=== PATIENT | female | born 1945 | race Caucasian/White ===

== ENCOUNTER 2021-07-26 19:44 | Outpatient (REF) | payer OTHER, SELFPAY ==
[2021-07-26 21:12] LABS: Abs Immature Grans 0.02 10^3/uL (0.0-0.06); Absolute Basophil Count 0.03 10^3/uL (0.0-0.2); Absolute Eosinophil Count 0.07 10^3/uL (0.0-0.7); Absolute Lymphocyte Count 1.36 10^3/uL (1.2-3.4); Absolute Monocyte Count 0.49 10^3/uL (0.1-0.8); Absolute Neutrophil Count 4.16 10^3/uL (1.2-6.7); Basophils % 0.5; Eosinophils % 1.1; HGB 7.8 g/dL (11.2-15.7); Immature Grans % 0.3; Lymphocytes % 22.2; MCH 27.9 pg (27.0-33.0); MCV 92.9 fL (80-95); MPV 10.9 fL (8.0-11.0); Neutrophils % 67.9; Nucleated RBC 0 %; Platelet Count 254 10^3/uL (130-400); RDW 15.6 % (11.7-14.6); RDW-SD 52.7 fL; WBC 6.13 10^3/uL (4.4-10.8)
[2021-07-26 22:26] LABS: Anion Gap 2.8 mmol/L (3-11); BUN 15 mg/dL (7-18); CO2 30.2 mmol/L (21.0-32.0); CREATININE 1.5 mg/dL (0.55-1.02); Calcium 9.1 mg/dL (8.5-10.1); Chloride 109 mmol/L (98-107); Estimated GFR 33.85 (mL/min/1.73m2); Glucose 88 mg/dL (74-106); Potassium 3.7 mmol/L (3.5-5.1); Sodium 142 mmol/L (136-145)
== END 2021-07-26 19:45 | disposition home or self-care (01) ==
LOC: LBN 19:44
PROVIDERS: PCP Family Medicine; Visit Provider Family Medicine
DX: D62 Acute posthemorrhagic anemia (principal); N18.30 Chronic kidney disease, stage 3 unspecified; I10 Essential (primary) hypertension
CPT/HCPCS: 80048; 85025

== ENCOUNTER 2024-01-03 01:33 | Inpatient (IN) | payer OTHER, MEDICAID, SELFPAY ==
[2024-01-03] VITALS (21 sets, daily range): BP systolic 101–150; BP diastolic 60–85; PULSE 68–137; RESP 13–24; TEMP 36.1–36.6; O2SAT 83–99
--- NOTE | 2024-01-03 | DI.RAD_ITS ---
Exam(s) XR CHEST 1V IN DI DEPT EXAM: XR CHEST 1V IN DI DEPT CLINICAL HISTORY: chest pain. TECHNIQUE: 2D digital imaging was performed. COMPARISON: No exams were available for comparison FINDINGS: Single AP portable view. Heart size is upper normal. The mediastinum is not widened. Right hemidiaphragm is elevated and there is mild blunting of the right costophrenic angle. Also thi ckening of the minor fissure in the right lung. Opposite-left lung is clear. Degenerative changes a re noted in the shoulders and fracture deformity of the right humeral head-neck noted. IMPRESSION: Elevated right hemidiaphragm. Right pleural effusion. DATA REPOSITORY: RADIATION DOSE DELIVERED:
--- NOTE | 2024-01-03 | DI.RAD_ITS ---
Exam(s) XR ABDOMEN FLAT PLATE EXAM: XR ABDOMEN FLAT PLATE CLINICAL HISTORY: abdomen pain. TECHNIQUE: 2D digital imaging was performed. COMPARISON: No exams were available for comparison FINDINGS: Single AP supine view of the abdomen: The bowel gas pattern is nonspecific in the supine position. There is an overall grayness which may suggest the presence of ascites. No abnormal calcifications seen over the kidneys. Multiple phlebol iths are noted in both sides of the pelvis. Right hip prosthesis noted. Degenerative changes in the lower lumbar spine. IMPRESSION: Nonspecific bowel gas pattern in the supine position. Possible ascites. DATA REPOSITORY: RADIATION DOSE DELIVERED:
--- NOTE | 2024-01-03 01:30 | RT.EKG_ITS ---
APPROVED REPORT Exam: Resting ECG Reason for Exam: abd pain Patient Location: E HR:108 bpm ECG Measurements Heart Rate 108 AXIS TX 126 P 68 QRSd 68 QRS 11 QT 321 T 224 QTc 427 Conclusion Sinus tachycardia...rate> 99 Atrial premature complex...SV complex w/ short R-R interval Low voltage, extremity leads...all extremity leads <0.5mV Repol abnrm suggests ischemia, anterolateral...ST dep, T neg, I aVL V2-V6 I have reviewed and interpreted ECG and agree with software generated interpretation.
--- NOTE | 2024-01-03 01:45 | W.ED.GENAD ---
Discharge Plan Disposition Patient Disposition: Admit to [facility] Condition: Improving Discharge Details Chief Complaint: Abd Prob Clinical Impression: Urinary tract infection, Subendocardial ischemia, Abdominal pain, acute, right upper quadrant Primary Care Provider: Lazara Benz ED Provider: Jeremi De La Garza Home Meds and New Rx's Prescriptions: No Action celecoxib [Celebrex] 200 MG capsule 200 mg PO DAILY pravastatin 10 MG tablet 10 mg PO DAILY amitriptyline 10 MG tablet 20 mg PO HS omeprazole 20 MG capsule,delayed release(DR/EC) 20 mg PO DAILY fluticasone propionate [Flovent HFA] 12 GM HFA aerosol inhaler 220 mcg Inhalation BID hydrochlorothiazide 25 MG tablet 25 mg PO DAILY duloxetine [Cymbalta] 60 MG capsule,delayed release(DR/EC) 60 mg PO DAILY polyethylene glycol 3350 [Miralax] 17 GM powder in packet 255 gm PO for colonoscopy Qty: 1 0RF bisacodyl [Dulcolax (bisacodyl)] 5 MG tablet,delayed release (DR/EC) 5 mg PO ONCE Qty: 4 0RF Rx Instructions: Take as directed. atorvastatin 80 mg tablet 80 mg PO DAILY clopidogrel 75 mg tablet 75 mg PO DAILY Dulera 200-5 mcg/actuation HFA aerosol inhaler 2 puff inhalation BID escitalopram oxalate 20 mg tablet 20 mg PO DAILY ferrous sulfate 325 mg (65 mg iron) tablet 325 mg PO DAILY metoprolol succinate 25 mg tablet extended release 24 hr 25 mg PO DAILY pantoprazole 40 mg tablet,delayed release (DR/EC) 40 mg PO BID quetiapine [Seroquel] 25 mg tablet 25 mg PO QHS acetaminophen 325 mg tablet 325 mg PO Q4H PRN tetrahydrozoline [Eye Drops (tetrahydrozoline)] 0.05 % drops 1 drp ophthalmic (eye) BID ipratropium-albuterol 0.5 mg-3 mg(2.5 mg base)/3 mL solution for nebulization 3 ml inhalation QID PRN Discharge Data Discharge Physician: Jeremi De La Garza [facility] General Date/Time Provider Initiated Documentation: 01/03/24 01:36. HPI Narrative: The patient is a 78-year-old female, with a past medical history significant for constipation, depression, osteoarthritis, hypertension, gastroesophageal reflux disease, and hyperlipidemia, who presents to the emergency department this evening from the halfway facility across the street with complaints of abdominal discomfort. When EMS was initially called, the nursing facility staff reported that the patient was moaning and holding her abdomen and that they could not get any history from her. EMS reports that the patient initially complained about epigastric pain on their arrival and was mildly hypotensive. On arrival to the emergency room, the patient says that her pain is now in her right upper quadrant and is radiating to her right flank. The patient denies any nausea, vomiting, diarrhea, or constipation. The patient can provide relatively little history regarding the timeframe or progression of this disease process, but she does hold her abdomen on the right side and complained of pain in that location. Related Data Home Medications Medication Instructions Recorded Confirmed Celebrex 200 mg capsule (celecoxib) 200 mg PO DAILY 05/21/17 Cymbalta 60 mg capsule,delayed 60 mg PO DAILY 05/21/17 release (duloxetine) Flovent HFA 220 mcg/actuation 220 mcg inhalation BID 05/21/17 aerosol inhaler (fluticasone propionate) amitriptyline 10 mg tablet 20 mg PO HS 05/21/17 hydrochlorothiazide 25 mg tablet 25 mg PO DAILY 05/21/17 omeprazole 20 mg capsule,delayed 20 mg PO DAILY 05/21/17 release pravastatin 10 mg tablet 10 mg PO DAILY 05/21/17 bisacodyl 5 mg tablet,delayed 5 mg PO ONCE #4 tabs 08/06/17 release (Dulcolax (bisacodyl)) polyethylene glycol 3350 17 gram 255 gm PO for colonoscopy #1 g 08/06/17 01/03/24 oral powder packet (Miralax) acetaminophen 325 mg tablet 325 mg PO Q4H PRN 01/03/24 01/03/24 atorvastatin 80 mg tablet 80 mg PO DAILY 01/03/24 01/03/24 clopidogrel 75 mg tablet 75 mg PO DAILY 01/03/24 01/03/24 escitalopram oxalate 20 mg tablet 20 mg PO DAILY 01/03/24 01/03/24 ferrous sulfate 325 mg (65 mg 325 mg PO DAILY 01/03/24 01/03/24 iron) tablet ipratropium 0.5 mg-albuterol 3 mg 3 ml inhalation QID PRN 01/03/24 01/03/24 (2.5 mg base)/3 mL nebulization soln metoprolol succinate 25 mg 25 mg PO DAILY 01/03/24 01/03/24 tablet,extended release 24 hr mometasone-formoterol HFA 200 2 puff inhalation BID 01/03/24 01/03/24 mcg-5 mcg/actuation aerosol inhaler (Dulera) pantoprazole 40 mg tablet,delayed 40 mg PO BID 01/03/24 01/03/24 release quetiapine 25 mg tablet (Seroquel) 25 mg PO QHS 01/03/24 01/03/24 tetrahydrozoline 0.05 % eye drops 1 drp ophthalmic (eye) BID 01/03/24 01/03/24 (Eye Drops (tetrahydrozoline)) Previous Rx's Medication Instructions Recorded bisacodyl 5 mg tablet,delayed 5 mg PO ONCE #4 tabs 08/06/17 release (Dulcolax (bisacodyl)) polyethylene glycol 3350 17 gram 255 gm PO for colonoscopy #1 g 08/06/17 oral powder packet (Miralax) Allergies Allergy/AdvReac Type Severity Reaction Status Date / Time ROB Inhibitors Allergy Other (See Unverified 01/03/24 03:48 Comment) aspirin Allergy Other (See Unverified 01/03/24 03:48 Comment) atenolol Allergy Other (See Unverified 01/03/24 03:48 Comment) codeine Allergy Other (See Unverified 01/03/24 03:48 Comment) gabapentin Allergy Other (See Unverified 01/03/24 03:48 Comment) hydromorphone HCl Allergy Other (See Unverified 01/03/24 03:48 [From Dilaudid] Comment) lisinopril Allergy Other (See Unverified 01/03/24 03:48 Comment) lorazepam [From Ativan] Allergy Other (See Unverified 01/03/24 03:48 Comment) naproxen [From Naprosyn] Allergy Other (See Unverified 01/03/24 03:48 Comment) penicillin V Allergy Other (See Unverified 01/03/24 03:48 Comment) trazodone Allergy Other (See Unverified 01/03/24 03:48 Comment) General Stated Complaint: Abd Prob UMER: 3 Exam Narrative Exam Narrative: The patient is alert and interactive with staff. She can follow directions and provide some limited information. She tells me that she has ongoing right upper quadrant abdominal pain and right flank pain. HENMT Other: The patient has poor dentition with a pronounced underbite and some dental decay. Resp Other: The patient has no increased work of breathing and has normal auscultations of her lungs bilaterally with good air exchange and no transmitted abnormal lung sounds Cardio Other: The auscultated heart sounds are regular rate and rhythm without any murmurs rubs or gallops. GI Other: The abdomen is soft to palpation with normal bowel sounds. The patient reports pain to palpation of the right upper quadrant and right flank. Skin Other: The patient is pink warm and dry with a normal skin temperature. There is seborrheic keratosis on the face and the visualized portions of the upper anterior trunk Neuro Other: The patient is alert and oriented to person. The patient has no observed or reported focal motor or sensory neurodeficits. The visualized portions of the cranial nerves are grossly intact. Extrem Other: There is 1-2+ nonpitting edema in the bilateral lower extremities Psych Other: The patient appears anxious and mildly agitated with some intermittent moaning. Course Vital Signs Vital signs: Vital Signs Temperature 36.6 C 01/03/24 01:33 Pulse 68 01/03/24 01:33 Respiratory Rate 17 01/03/24 01:33 Blood Pressure 101/61 01/03/24 01:33 Pulse Oximetry 96 01/03/24 01:33 Temperature 36.6 C 01/03/24 01:33 Pulse 68 01/03/24 01:33 Respiratory Rate 17 01/03/24 01:33 Respiratory Effort Normal 01/03/24 01:39 Blood Pressure 101/61 01/03/24 01:33 Pulse Oximetry 96 01/03/24 01:33 Pain Level 6 01/03/24 01:33 Procedures EJ/Peripheral Line Arm R: Time Out Performed: No Skin Cleansed in Sterile Fashion: Yes Size (gauge): 20 IV Secured and Dressing Applied: Yes Patient Tolerated Procedure: well Additional Comments: Place under US visualization. 2 attempts made in left AC prior to right brachial view placement. Medical Decision Making The patient was seen and examined. She has no real GI symptoms such as nausea, vomiting, diarrhea, or constipation that are known. The abdominal discomfort would seem to be a relatively acute phenomenon that began at some point in time this evening, but the nursing facility staff were unable to provide very accurate information regarding timing. And the patient can provide really no meaningful timing of the disease onset or progression. The differential would include biliary tract disease, pancreatitis, gastritis, pyelonephritis, occult renal calculus, atypical presentation for myocardial ischemia, hepatic flexure diverticulitis or colitis, functional abdominal pain related to constipation, or other forms of bowel pathology. The patient will have a generalized laboratory workup to evaluate her for these processes. The EKG appears to be a sinus tachycardia with a mild sinus dysrhythmia. There are abnormal repolarization findings throughout the precordial leads with some ST depression from V2 through V4 and downgoing T waves in V5 V6. There are isoelectric repolarization findings in the limb leads, generally. This EKG could be claim service representative of anterior lateral ischemia in the right context, but it does not represent a STEMI and in the absence of an elevated troponin is unlikely to represent an NSTEMI. The patient will receive some IV acetaminophen and IV fluid here in the emergency room to see if this helps improve her symptoms. Disposition depends on discovery of pathology and response to treatment here in the emergency room. The patient was found to have some elevation of alkaline phosphatase, cell forms that would be concerning for potential urinary tract infection in her urine, and a mildly elevated troponin in the setting of some ST changes in the precordial leads with ST depression. The patient was pain-free on recheck after being given IV acetaminophen and 1 L fluid bolus. I discussed the case with the patient's daughter, Dominique Quiroz, who tells me that they are not interested in any aggressive cardiac or surgical interventions. I explained that her mother would be admitted to the hospital for serial myocardial enzymes and some additional treatment. I discussed the case with Dr. Kaur from the hospitalist service who agreed to accept the patient in admission. Quality:SDOH Health Related Social Needs: No Data to Display PFSH All Active Problems (Updated 01/03/24 @ 05:37 by Jeremi De La Garza MD) Abdominal pain, acute, right upper quadrant (Acute) Subendocardial ischemia (Acute) Urinary tract infection (Acute) Medical History (Updated 01/03/24 @ 05:37 by Jeremi De La Garza MD) Peptic ulcer disease Hypertension Chronic renal insufficiency Reactive airway disease Diabetes mellitus Hx of hepatitis Hx MRSA infection Surgical History (Updated 05/21/17 @ 09:35 by Tootie Goss MD) Knee Replacement Hip Surgery EGD - [facility] Colonoscopy - [facility] Family History Mother Diabetes Small bowel infarction Father Lung cancer Thyroid disease Sister Myocardial infarction Brother Myocardial infarction Social History Smoking risk assessment performed?: No Housing: long-term Do you feel safe at home: Yes
[2024-01-03 02:09] LABS: Bilirubin Large (Negative); Blood Trace-intact (Negative); Clarity Sl Cloudy (Clear); Glucose Negative (Negative); Ketones 15 mg/dL (Negative); Leukocyte Esterase Small (Negative); Nitrite Negative (Negative); Specific Gravity >= 1.030 (1.005-1.025)
[2024-01-03 02:15] LABS: Bacteria Few HPF (Negative); Casts Negative LPF (Negative); Crystals Negative HPF (Negative); Epithelial Cells Moderate HPF (Negative); Mucus Negative (Negative)
[2024-01-03 02:16] LABS: C & S Indicated? No/Sq. Contamination
[2024-01-03] MEDS: ACETAMINOPHEN 1,000 MG/100 ML BTL 400 MG IVPB (02:16)
[2024-01-03] MEDS: Normal Saline 1,000 ML 1000 ML IV (02:16)
[2024-01-03 03:51] LABS: Abs Immature Grans 0.06 10^3/uL (0.0-0.06); Absolute Lymphocyte Count 0.83 10^3/uL (1.2-3.4); Absolute Monocyte Count 0.27 10^3/uL (0.1-0.8); Absolute Neutrophil Count 6.67 10^3/uL (1.2-6.7); HCT 28.1 % (36.0-46.0); Immature Grans % 0.8; Lymphocytes % 10.6; MCH 28.8 pg (27.0-33.0); MCV 90 fL (80-95); MPV 9.7 fL (8.0-11.0); Monocytes % 3.4; Neutrophils % 85.2; Platelet Count 145 10^3/uL (130-400); RBC 3.13 10^6/uL (3.93-5.22); RDW 15.8 % (11.7-14.6); RDW-SD 52.5 fL; WBC 7.83 10^3/uL (4.4-10.8)
[2024-01-03 04:05] LABS: ALT 17 U/L (14-59); AST 49 U/L (15-37); Albumin 2.1 g/dL (3.4-5.0); Alkaline Phosphatase 156 U/L (46-116); Anion Gap 13.2 mmol/L (3-11); BUN 42 mg/dL (7-18); Bilirubin, Total 1.2 mg/dL (0.2-1.0); CO2 23.8 mmol/L (21.0-32.0); CREATININE 1.7 mg/dL (0.55-1.02); Calcium 8.7 mg/dL (8.5-10.1); Chloride 109 mmol/L (98-107); Glucose 105 mg/dL (74-106); Lipase 23 U/L (16-77); Potassium 3.2 mmol/L (3.5-5.1); Sodium 146 mmol/L (136-145); Total Protein 6.2 g/dL (6.4-8.2)
[2024-01-03 04:09] LABS: Troponin I 136 ng/L (< or =60)
--- NOTE | 2024-01-03 05:29 | DI.US_ITS ---
Exam(s) US ABDOMEN LIMITED EXAM: US ABDOMEN LIMITED CLINICAL HISTORY: RUQ pain, eval gallbladder TECHNIQUE: Ultrasound abdomen performed using standard protocol. COMPARISON: No exams were available for comparison FINDINGS: Exam is limited by bowel gas and patient condition. LIVER: Increased echogenicity consistent with moderate hepatic steatosis. No focal liver lesions are seen. GALLBLADDER: Sludge. No stones identified. No evidence of wall thickening. No pericholecystic fluid identified. SOLORIO'S SIGN: Negative. BILIARY SYSTEM: No intrahepatic or extrahepatic biliary ductal dilation. Right kidney: No evidence of renal calculi. No evidence of hydronephrosis. No renal mass or cyst iden tified. PANCREAS: Normal where visualized. ASCITES: None seen. IMPRESSION: Moderate hepatic steatosis. Gallbladder sludge. DATA REPOSITORY:
--- NOTE | 2024-01-03 05:30 | RT.EKG_ITS ---
APPROVED REPORT Exam: Resting ECG Reason for Exam: Patient Location: E HR:119 bpm ECG Measurements Heart Rate 119 AXIS IN [id number] P [id number] QRSd 67 QRS 21 QT 353 T 252 QTc 497 Conclusion Atrial fibrillation...? atrial activity Low voltage, extremity leads...all extremity leads <0.5mV Nonspecific repol abnormality, diffuse leads...ST dep, T flat/neg, ant/lat/inf
[2024-01-03] MEDS: cefTRIAXone 1 GM/50 ML BAG (05:33)
--- NOTE | 2024-01-03 06:11 | HPE_ITS ---
Date of service: 01/03/24 Time of Service: 06:11 Assessment and Plan Assessment and plan (1) Abdominal pain, acute, right upper quadrant: Start date: 01/03/24 Status: Acute Assessment and plan: This is a 78-year-old lady with acute onset of right upper quadrant discomfort and abnormal liver function test suggesting possible cholelithiasis with common duct obstruction or gallbladder colic. She also had slightly elevated troponins which appear to be secondary rather than primary issue with tachycardia and slight dehydration and what appears to be paroxysmal atrial fibrillation. She has no diagnosis of atrial fibrillation and is on a medical regimen which may indicate this is been a problem and. She is not on anticoagulation with Plavix to be held and only heparin subcu for DVT prophylaxis pending surgical consultation after ultrasound abdomen. Patient also having lung findings over the right lower lung field which may be sympathetic with her acute abdominal process but chest x-ray will be done to rule out pneumonia. Patient is on Rocephin for possible UTI which should cover pneumonia and GI infectious pathology with urine culture pending and blood culture pending. This can be expanded if needed. She does not have an elevated WBC. Procalcitonin can be checked. She is a DNR/DNI and if surgical intervention is needed her daughter will be consulted. The medication to treat a non-STEMI at this time. (2) Elevated troponin level not due myocardial infarction: Start date: 01/03/24 Status: Acute Assessment and plan: Mildly elevated troponin as stated most likely secondary to acute process. Trend troponins and continue cardiac monitoring with patient appears to have paroxysmal atrial fibrillation. Advance beta-hemal and continue high-dose atorvastatin. She was on Plavix but this to be held with possible pending surgical intervention. Long-term anticoagulation for paroxysmal atrial fibrillation can be addressed but risk may outweigh benefit. (3) Urinary tract infection: Start date: 01/03/24 Status: Acute Assessment and plan: Possible UTI with patient to have Rocephin 1 g IV and follow-up urine culture adjusting antibiotic therapy accordingly. Qualifiers: Hematuria presence: with hematuria Urinary tract infection type: acute cystitis Qualified Code(s): N30.01 - Acute cystitis with hematuria (4) Hypokalemia: Start date: 01/03/24 Status: Acute Assessment and plan: Repletion and follow-up. This may be nutritional. Patient is not on diuretics. Check magnesium and replete if needed. (5) Dehydration: Start date: 01/03/24 Status: Acute Assessment and plan: Gentle IV hydration with echocardiogram to assess cardiac output. Monitor for fluid overload. Follow-up labs. (6) PAF (paroxysmal atrial fibrillation): Status: Acute Assessment and plan: This problem is not on the patient's problem list but may have been a problem in the past. This will be investigated with her PCP. Continue to monitor heart rate and advance beta-hemal as tolerated. Long-term patient daughter needs to be engaged in discussion of of anticoagulation to avoid stroke though risk may be higher than benefit. (7) Chronic renal insufficiency: Assessment and plan: Slightly exacerbated with dehydration. Trend labs. Qualifiers: Chronic kidney disease stage: stage 3 (moderate) Chronic kidney disease stage 3 subtype: stage 3b (GFR 30-44) Qualified Code(s): N18.32 - Chronic kidney disease, stage 3b (8) Reactive airway disease: Assessment and plan: On chronic inhalers which will be continued. Chest x-ray because of right lower lung findings and if pneumonia consider expanding antibiotic therapy. Qualifiers: Asthma complication type: uncomplicated Asthma persistence: persistent Asthma severity: moderate Qualified Code(s): J45.40 - Moderate persistent asthma, uncomplicated (9) Diabetes mellitus: Assessment and plan: Historically has diabetes mellitus but not on medical therapy. Trend comorbidities before meals and at bedtime when on diet and every 6 hours with NPO. Since his insulin sliding scale coverage while hospitalized. Qualifiers: Chronic kidney disease stage: stage 3 (moderate) Chronic kidney disease stage 3 subtype: stage 3b (GFR 30-44) Diabetes mellitus complication detail: w ith chronic kidney disease Diabetes mellitus complication status: with kidney complications Diabetes mellitus meterman insulin use: without shelter use D iabetes mellitus type: type 2 Qualified Code(s): E11.22 - Type 2 diabetes mellitus with diabetic chronic kidney disease; N18.32 - Chronic kidney disease, stage 3b (10) Hypertension: Assessment and plan: Advance beta-blockade which will help tachycardia with atrial fibrillation and blood pressure control as well as treat for slightly elevated troponin. Expanded medical therapy if needed. Echocardiogram will be performed. Qualifiers: Hypertension type: primary hypertension Qualified Code(s): I10 - Essential (primary) hypertension History of Present Illness History of Present Illness Chief Complaint: Right upper quadrant abdominal pain and generalized weakness Narrative: This is a 78-year-old female patient who recently was admitted to a local skilled nursing presented to ED with acute onset of right upper quadrant abdominal pain radiating to her flank. This resolved with IV fluid hydration and analgesics. Her lab did reveal a slight elevation of her troponin and EKG did reveal some nonspecific ST changes which may be chronic with no comparisons. Rhythm also appears to be intermittently atrial fibrillation the patient not on anticoagulation but on beta-hemal and Plavix along with atorvastatin. She cannot offer more specific history and there are few records of her past treatments. She did have elevation of her liver enzymes and her onset of pain could be consistent with gallbladder disease. She has had no cholecystectomy. She has no other abdominal complaints but as stated is a poor historian. She does have a slightly elevated creatinine which may be chronic and hypokalemia with repletion of potassium and ongoing. She has not complained of chest pain or abdominal pain at the time of my exam. She does complain of being generally weak and may not be having adequate intake recently. She denies anorexia. Because of patient's sudden onset of symptoms and elevated troponin she will be admitted to trend troponins and do further evaluation of her gallbladder and elevated liver functions as well as hydration with IV fluids consider echocardiogram with none on record and having elevated troponins. Will look for focal wall motion abnormalities in the left ventricle. She will be on telemetry and for now only will be given heparin DVT prophylaxis and thromboembolic prophylaxis with probable paroxysmal atrial fibrillation with slightly elevated heart rate at the time of admission. She is on a beta-hemal but this could be increasing her blood pressure tolerates. The daughter is amenable to treating reversible problems but being not aggressive with transfer or surgical interventions. She will be kept in the loop with decision making with further investigations. Patient is a DNR/DNI. Review of Systems Narrative: 13 point review of systems otherwise unrevealing or stable/unobtainable. [facility] All Active Problems (Updated 01/03/24 @ 07:42 by Reji Kaur) PAF (paroxysmal atrial fibrillation) (Acute) Dehydration (Acute) Hypokalemia (Acute) Elevated troponin level not due myocardial infarction (Acute) Abdominal pain, acute, right upper quadrant (Acute) Subendocardial ischemia (Acute) Urinary tract infection (Acute) Medical History Peptic ulcer disease Hypertension Chronic renal insufficiency Reactive airway disease Diabetes mellitus Hx of hepatitis Hx MRSA infection Surgical History Knee Replacement Hip Surgery EGD - MAC Colonoscopy - MAC Family History Mother Diabetes Small bowel infarction Father Lung cancer Thyroid disease Sister Myocardial infarction Brother Myocardial infarction Social History Smoking risk assessment performed?: No Housing: skilled nursing Do you feel safe at home: Yes Meds Allergies and Home Medications Allergies Allergy/AdvReac Type Severity Reaction Status Date / Time ROB Inhibitors Allergy Other (See Unverified 01/03/24 03:48 Comment) aspirin Allergy Other (See Unverified 01/03/24 03:48 Comment) atenolol Allergy Other (See Unverified 01/03/24 03:48 Comment) codeine Allergy Other (See Unverified 01/03/24 03:48 Comment) gabapentin Allergy Other (See Unverified 01/03/24 03:48 Comment) hydromorphone HCl Allergy Other (See Unverified 01/03/24 03:48 [From Dilaudid] Comment) lisinopril Allergy Other (See Unverified 01/03/24 03:48 Comment) lorazepam [From Ativan] Allergy Other (See Unverified 01/03/24 03:48 Comment) naproxen [From Naprosyn] Allergy Other (See Unverified 01/03/24 03:48 Comment) penicillin V Allergy Other (See Unverified 01/03/24 03:48 Comment) trazodone Allergy Other (See Unverified 01/03/24 03:48 Comment) Home Medications Medication Instructions Recorded Confirmed Type Cymbalta 60 mg capsule,delayed 60 mg PO DAILY 05/21/17 History release (duloxetine) Flovent HFA 220 mcg/actuation 220 mcg inhalation BID 05/21/17 History aerosol inhaler (fluticasone propionate) amitriptyline 10 mg tablet 20 mg PO HS 05/21/17 History hydrochlorothiazide 25 mg tablet 25 mg PO DAILY 05/21/17 History polyethylene glycol 3350 17 gram 255 gm PO for colonoscopy #1 g 08/06/17 01/03/24 Rx oral powder packet (Miralax) acetaminophen 325 mg tablet 325 mg PO Q4H PRN 01/03/24 01/03/24 History atorvastatin 80 mg tablet 80 mg PO DAILY 01/03/24 01/03/24 History clopidogrel 75 mg tablet 75 mg PO DAILY 01/03/24 01/03/24 History escitalopram oxalate 20 mg tablet 20 mg PO DAILY 01/03/24 01/03/24 History ferrous sulfate 325 mg (65 mg 325 mg PO DAILY 01/03/24 01/03/24 History iron) tablet ipratropium 0.5 mg-albuterol 3 mg 3 ml inhalation QID PRN 01/03/24 01/03/24 History (2.5 mg base)/3 mL nebulization soln metoprolol succinate 25 mg 25 mg PO DAILY 01/03/24 01/03/24 History tablet,extended release 24 hr mometasone-formoterol HFA 200 2 puff inhalation BID 01/03/24 01/03/24 History mcg-5 mcg/actuation aerosol inhaler (Dulera) pantoprazole 40 mg tablet,delayed 40 mg PO BID 01/03/24 01/03/24 History release quetiapine 25 mg tablet (Seroquel) 25 mg PO QHS 01/03/24 01/03/24 History tetrahydrozoline 0.05 % eye drops 1 drp ophthalmic (eye) BID 01/03/24 01/03/24 History (Eye Drops (tetrahydrozoline)) Exam Narrative Exam Narrative: General: Patient appears appropriate for age, appears chronically ill and is very soft-spoken with wandering conversation. She appears to have a very dry mouth and an underbite missing her upper teeth. Speech is slightly garbled. She is alert and oriented at least to person and place. She is in no acute distress. She is slightly lethargic. HEENT: Normocephalic, coarsened facial features, eyes with pupils equal and reactive to light symmetrically, extraocular movement tachycardia sclera anicteric. Oropharynx with dry mucosa and missing upper teeth with discolored and crooked lower teeth with missing molars. Neck: Supple without JVD. Lungs: Inspiratory coarse crackles right base partially cleared with deep inspiration with clear lung garcia otherwise. No rhonchi. No expiratory wheeze. Fair aeration diffusely. No increased expiratory phase. Back: Stooped posture without CVA tenderness. Large hair tuft over lumbar region which is dense and dark. There is small spina bifida defect centrally. Breast: Exam deferred. Heart: Irregular irregular rhythm with tachycardic rate and distant heart sounds. No murmur or gallop appreciated. Abdomen: Scaphoid contour, soft to palpation with slight guarding in the right upper quadrant and epigastric region but no rebound. No palpable hepatosplenomegaly. Negative Cao sign. Bowel sounds positive all quadrants. Genitalia/rectal: Exam deferred. Patient is wearing adult diaper. Skin: Warm, normal color and dry. Extremities: Without clubbing, cyanosis or grossly pitting edema with nonpitting edema lower extremities. Good cap refill. Joints have decreased range of motion with osteoarthritic changes. Neuro: Cranial nerves II through XII gross intact, no focalizing motor deficits. No tremor. Psych: Flattened affect with normal mood. Slightly lethargic but not delusional. No abnormal thought processes. Remote memory grossly intact with recent memory less intact. Results Labs 01/03/24 03:40 01/03/24 03:40 Labs: Laboratory Results - last 24 hr 01/03/24 01/03/24 02:04 03:40 WBC 7.83 RBC 3.13 L Hgb 9.0 L Hct 28.1 L MCV 90 MCH 28.8 MCHC 32.0 RDW 15.8 H Plt Count 145 MPV 9.7 Immature Gran % 0.8 Neutrophils % 85.2 Lymphocytes % 10.6 Monocytes % 3.4 Eosinophils % 0.0 Basophils % 0.0 Nucleated RBC % 0.0 Absolute Neutrophils 6.67 Absolute Lymphocytes 0.83 L Absolute Monocytes 0.27 Absolute Eosinophils 0.00 Absolute Basophils 0.00 Sodium 146 H Potassium 3.2 L Chloride 109 H Carbon Dioxide 23.8 Anion Gap 13.2 H BUN 42 H Creatinine 1.7 H Est GFR (CKD-EPI 2020) 30.50 Glucose 105 Calcium 8.7 Total Bilirubin 1.2 H AST 49 H ALT 17 Alkaline Phosphatase 156 H Troponin I 136 H* Total Protein 6.2 L Albumin 2.1 L Lipase 23 Urine Color Yellow Urine Clarity Sl Cloudy Urine pH 6.0 Ur Specific Sparks >= 1.030 H Urine Protein 100 H Urine Ketones 15 H Urine Blood Trace-intact H Urine Nitrite Negative Urine Bilirubin Large H Urine Urobilinogen 1.0 H Ur Leukocyte Esterase Small H Urine RBC 5-10 H Urine WBC 10-20 H Ur Epithelial Cells Moderate Urine Crystals Negative Urine Bacteria Few Urine Casts Negative Urine Mucus Negative Ur Culture Indicated? No/Sq. Contamination Urine Glucose Negative Last Vital Signs Temp 36.6 C 01/03/24 01:33 Pulse 114 H 01/03/24 04:50 Resp 16 01/03/24 04:50 BP 136/83 01/03/24 04:50 Pulse Ox 98 01/03/24 04:50 Time Spent Time spent with Patient: >75 minutes Time was spent: preparing to see the patient(eg.review tests), obtaining and/or reviewing separately otained hiistory, ordering medications,tests, procedures, referring, communicating with other health career technology teacher, indepentently interpreting results and care coordination
[2024-01-03 06:36] LABS: Source Nasal/Nares
[2024-01-03 07:08] LABS: COVID-19 PCR Negative (Negative)
[2024-01-03 07:30] LABS: MRSA PCR Negative (Negative)
[2024-01-03 07:57] LABS: INR 1.3 (0.9-1.1); Prothrombin Time 12.5 sec (9.1-11.1)
[2024-01-03 08:09] LABS: TSH (W/Ref FT4) 0.66 uIU/mL (0.36-3.74)
[2024-01-03 08:15] LABS: Troponin I 152 ng/L (< or =60)
--- NOTE | 2024-01-03 09:45 | RT.EKG_ITS ---
APPROVED REPORT Exam: Resting ECG Reason for Exam: afib vs sinus arrhythmia vs MAT Patient Location: I HR:93 bpm ECG Measurements Heart Rate 93 AXIS IA 127 P 76 QRSd 81 QRS 33 QT 372 T 245 QTc 463 Conclusion Sinus rhythm...normal P axis, V-rate 50- 99 Low voltage, extremity leads...all extremity leads <0.5mV Abnormal R-wave progression, early transition...QRS area>[address]-T abnormalities
[2024-01-03] MEDS: Heparin 5,000 UNITS/ML VIAL 5000 UNITS SC ×2 (10:11→18:21)
--- NOTE | 2024-01-03 10:15 | DI.US_ITS ---
APPROVED REPORT EXAM: Comprehensive 2D, Doppler, and color-flow Echocardiogram Patient Location: In-Patient Room/Bed: 209 Bursar: Afia Medrano RDCS (AE) Indications: Elevated troponin, evaluate for RWMA Other Information Study Quality: Fair. Technically limited study due to body habitus, inability to position patient, un cooperative patient exam done supine bedside.. Conclusion Technically limited study Left ventricle appears normal in size, wall thickness and systolic function. EF 55-60%. No wall mot ion abnormalites identified Right ventricle and right atrium appear normal in size Normal left atrial size There are no structural or hemodynamically significant valvular abnormalities seen on this study Wall motion Left Ventricle Low parasternal window limited imaging. The overall left ventricular systolic function appears normal . Arrhythmia throughout exam. Technically limited subcostal imaging. Right Ventricle Right ventricle is grossly normal in size. Right ventricular systolic function is grossly normal. Atria Left atrium is not well visualized. Right atrium is not well visualized. Technically limited subcosta l imaging. Aortic Valve The aortic valve is normal in structure. There is no aortic valvular stenosis. No aortic regurgitatio n is present. Mitral Valve The mitral valve is normal in structure. No evidence of mitral valve stenosis. Trace mitral regurgita tion. Tricuspid Valve The tricuspid valve is normal in structure. There is no tricuspid valve stenosis. Mild tricuspid regu rgitation. Pulmonic Valve Pulmonic valve is not well visualized. There is no pulmonic valvular stenosis. There is no pulmonic v alvular regurgitation. Great Vessels The aortic root is normal in size. Ascending aorta is not well visualized. Aortic arch is not well vi sualized. The IVC was not visualized. Technically limited subcostal imaging. Pericardium Technically limited subcostal imaging. 2D Dimensions Ao Root d 3.20 cm F: 2.7 - 3.3 LA Volume LA Length A4C 4.1 cm LA Length A2C 5.0 cm LA Area A4C s 10.65 cm2 LA Area A2C s 14.73 cm2 LA Vol A4C A-L 23.61 mL LA Vol A2C A-L 36.77 mL LA Vol Biplane A-L 32.6 mL LA Vol/BSA A4C A-L LA Vol/BSA A2C A-L LA Vol/BSA BP A-L 19.5 mL/m2 LA Vol A4C MOD 22.3 mL LA Vol A2C MOD 34.5 mL LA Vol BP MOD 30.6 mL LV Diastology MV E' medial 0.043 (>0.07 m/s) MV E Vmax 0.57 (0.4-1.3 m/s) MV E/E' MED 13.18 (<14) MV A Vmax 0.80 (0.4-1.3 m/s) MV E' lateral 0.056 (>0.1 m/s) E/A Ratio 0.7 MV E/E' LAT 10.22 (<14) MV E' Average 0.049 m/s MV E/E'(average) 11.51 Aortic Valve AoV Vmax 1.00 m/s LVOT Vmax 0.98 m/s AoV Peak Grad 4.0 mmHg LVOT Peak Grad 3.9 mmHg AoV Area (Vmax) 2.98 cm2 LVOT VTI 0.171 m AoV VTI 0.179 m LVOT Mean Grad 1.6 mmHg AoV Mean Vijay. 0.72 m/s LVOT SV 51.78 mL AoV Mean Grad 2.3 mmHg LVOT Diam s 1.95 cm AoV Area (VTI) 2.90 cm2 Velocity Ratio 0.98 Mitral Valve MV DT 180 (160-240 msec) MV Vmax TIPS 0.79 m/s MV Mean Grad 1.3 (<2mmHg) MV VTI 0.173 m Pulmonary Valve PV Vmax 0.79 (0.5-1.5 m/s) RVOT Vmax 0.68 m/s PV Peak Grad 2.5 mmHg RVOT Peak Gr. 1.8 mmHg PV Mean Vijay 0.59 m/s RVOT VTI 0.107 m PV Mean Grad 1.5 mmHg RVOT Mean Gr. 1.1 mmHg Tricuspid Valve TV S' 0.13 m/s TR Vmax 2.74 m/s TR Peak Grad 29.9 mmHg
--- NOTE | 2024-01-03 10:21 | INITIAL_ITS ---
Date of service: 01/03/24 Time of Service: 10:21 Care Management Initial Assmt Initial Assessment REASON FOR HOSPITALIZATION:: abdominal pain, uti PREVIOUS FUNCTIONAL STATUS/SOCIAL/FAMILY SUPPORTS:: Blanka has been residing at [facility] for about 6 weeks. Prior to that she was at [facility]. Blanka has 4 children, 2 sons and 2 daughters. The daughters were present when CM met with Blanka and helped to provide some in formation. Blanka has dementia so is not a reliable historian. 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 Blanka requires assistance with ADLs and is only able to ambulate short distances with a walker. CURRENT FUNCTIONAL STATUS:: Blanka was lying in bed visiting with her daughters when CM met with her. She was mumbling but did not enter into conversation. Anthony bazan's IV potassium infiltrated and it was necessary for her nurse to administer hyaluronidase which Blanka found very painful. Dr. Loving did a surgical consult with Blanka and discussed the possibility of doing a cholecystectomy with her daughters. She was informed that Blanka is unable to have surgery with anesthesia due to a large clot in her brain. As there are no medical records available for Blanka, this could not be confirmed. ADVANCE DIRECTIVES:: none Has patient been provided with info about the portal/API?: Yes Did the patient sign up for the portal?: No CODE STATUS:: DNR/DNI INSURANCE COVERAGE / FINANCIAL ISSUES:: [employer] [place] Medicaid CURRENT HOME/COMMUNITY SERVICES/EQUIPMENT:: lives in a SNF PRIMARY CARE PHYSICIAN:: Lazara Benz POTENTIAL DISCHARGE NEEDS:: follow up with facility providers ands plan of care PATIENT/FAMILY EDUCATION NEEDS:: Review of discharge instructions, expectations, limitations, follow up plan TRANSPORTATION:: via facility w/c van PLAN:: Anticipate that Blanka will return to [facility] when medically cleared. She will follow up with the facility providers and plan of care and transport via facility van. CM will follow and assess for discharge needs. [facility] All Active Problems (Updated 01/03/24 @ 07:42 by Reji Kaur) PAF (paroxysmal atrial fibrillation) (Acute) Dehydration (Acute) Hypokalemia (Acute) Elevated troponin level not due myocardial infarction (Acute) Abdominal pain, acute, right upper quadrant (Acute) Subendocardial ischemia (Acute) Urinary tract infection (Acute) Medical History Peptic ulcer disease Hypertension Chronic renal insufficiency Reactive airway disease Diabetes mellitus Hx of hepatitis Hx MRSA infection Surgical History Knee Replacement Hip Surgery EGD - MAC Colonoscopy - MAC Family History Mother Diabetes Small bowel infarction Father Lung cancer Thyroid disease Sister Myocardial infarction Brother Myocardial infarction Social History Smoking risk assessment performed?: No Housing: retirement Do you feel safe at home: Yes SDOH(Care Management) Screening Will the Patient Participate in the Screening?: Yes Do you worry about having a steady place to live?: yes In the past 12 months, have you had to go without electric, gas, oil or water in your home?: choose not to answer Have you or anyone in your house had to go without enough food to eat?: choose not to answer Has lack of transportation kept you from medical appointments or from doing things needed for daily living?: choose not to answer Has anyone in your support network made you feel unsafe for any reason?: choose not to answer Health Related Social Needs Health related social needs: housing instability, housed, with risk of homelessness(Z59.811)
[2024-01-03] MEDS: POTASSIUM CHLORIDE 10 MEQ/100 ML BAG 100 MEQ IVPB (10:38)
[2024-01-03] MEDS: Normal Saline 1,000 ML 125 ML IV (10:39)
[2024-01-03] MEDS: Normal Saline Flush 10 ML SYR IVP ×3 (10:41→21:58)
[2024-01-03 12:16] LABS: Troponin I 140 ng/L (< or =60)
--- NOTE | 2024-01-03 12:39 | DI.CT_ITS ---
Exam(s) CT ABDOMEN PELVIS WO EXAM: CT ABDOMEN PELVIS WO CLINICAL HISTORY: right upper quad pain. TECHNIQUE: Imaging Protocol: Axial computed tomography images with coronal and sagittal reformatted images were created and reviewed. Oral: / no COMPARISON: CR XR CHEST 1V IN DI DEPT from 01/03/2024 FINDINGS: Exam is somewhat limited by motion. Lung Bases: Small right pleural effusion. Adjacent densities which are suspicious for pneumonia.. Elevated right diaphragm. Liver: Fatty infiltration. No suspicious mass. Gallbladder and biliary tract: Stones versus sludge. No wall thickening. No biliary dilatation. Pancreas: Normal density, no abnormal calcifications or inflammatory process. Spleen: Normal. Kidneys: Normal size, contour and axis. No radiodense stones or obstructive uropathy. No suspicious m asses seen. Adrenal glands: No masses seen. Lymph nodes: Within normal limits. Vasculature: Abdominal aorta non-dilated. Atherosclerotic calcifications. Soft tissues: Unremarkable. Bladder: No wall thickening. No mass or calculi. Bowel: No obstruction or bowel wall thickening. Appendix normal. Mild diverticulosis. Peritoneal cavity: No ascites, collection or mesenteric inflammatory response. Reproductive organs: Unremarkable. Bones: Right hip prosthesis. Degenerative changes in the spine greatest at L4-5 and L5-S1. IMPRESSION: Small right pleural effusion. Increased densities at the right lung base are suspicious for pneumoni a. Small amount of gallbladder sludge versus stones. RADIATION DOSE DELIVERED: Total DLP DATA REPOSITORY: All CT scans at this facility are submitted to the National Radiology Data Registry (NRDR) Dose Index Registry (DIR) with the [employer] (ACR). RADIATION OPTIMIZATION: All CT scans at this facility use at least one of these dose optimization te chniques: automated exposure control; mA and/or kV adjustment per patient size (includes targeted exa ms where dose is matched to clinical indication); or iterative reconstruction.
--- NOTE | 2024-01-03 13:11 | PHA.REVIEW2 ---
Pharmacy Admission Review Admission Clinical Review Admission Pharmacy Review: PAF (paroxysmal atrial fibrillation) (Acute) Dehydration (Acute) Hypokalemia (Acute) Elevated troponin level not due myocardial infarction (Acute) Abdominal pain, acute, right upper quadrant (Acute) Subendocardial ischemia (Acute) Urinary tract infection (Acute) ROB Inhibitors Allergy (Unverified 01/03/24 03:48) Other (See Comment) aspirin Allergy (Unverified 01/03/24 03:48) Other (See Comment) atenolol Allergy (Unverified 01/03/24 03:48) Other (See Comment) codeine Allergy (Unverified 01/03/24 03:48) Other (See Comment) gabapentin Allergy (Unverified 01/03/24 03:48) Other (See Comment) hydromorphone HCl [From Dilaudid] Allergy (Unverified 01/03/24 03:48) Other (See Comment) lisinopril Allergy (Unverified 01/03/24 03:48) Other (See Comment) lorazepam [From Ativan] Allergy (Unverified 01/03/24 03:48) Other (See Comment) naproxen [From Naprosyn] Allergy (Unverified 01/03/24 03:48) Other (See Comment) penicillin V Allergy (Unverified 01/03/24 03:48) Other (See Comment) trazodone Allergy (Unverified 01/03/24 03:48) Other (See Comment) Resuscitation Status DNR/DNI Height 4 ft 9 in Weight 68.4 kg Pharmacy Admission Review Renal Dosing Renal Dosing: BUN 42 mg/dL (7-18) H 01/03/24 03:40 Creatinine 1.7 mg/dL (0.55-1.02) H 01/03/24 03:40 Medications needing adjustments: Intervened (CrCl 28.9 mL/min) List of meds needing interventions: There was no weight or height in patients chart this morning, called nursing to update chart. Once chart was updated, meds were reviewed. current meds okay. Anticoagulation Anticoagulation: Hgb 9.0 g/dL (11.2-15.7) L 01/03/24 03:40 Hct 28.1 % (36.0-46.0) L 01/03/24 03:40 Plt Count 145 10^3/uL (130-400) 01/03/24 03:40 INR 1.3 (0.9-1.1) H 01/03/24 07:30 Creatinine 1.7 mg/dL (0.55-1.02) H 01/03/24 03:40 DVT Prophylaxis: Reviewed Medications: Heparin (q8h) Opiate Usage Evaluate Pain Scale/Pains Meds: Reviewed (PRN morphine) Scheduled Bowel Reg ordered if on Opiates?: No (PRN Miralax/docusate) Relevant Labs Relevant Labs: Sodium 146 mmol/L (136-145) H 01/03/24 03:40 Potassium 3.2 mmol/L (3.5-5.1) L 01/03/24 03:40 Chloride 109 mmol/L (98-107) H 01/03/24 03:40 Magnesium 2.0 mg/dL (1.8-2.4) 01/03/24 07:30 Electrolytes, C-Reactive P, ESR: Reviewed (Na 146, K 3.2, BUN 42 and SCr 1.7, INR 1.3, troponin 140, AST 49) DM Control DM Control: Glucose 105 mg/dL (74-106) 01/03/24 03:40 Finger Stick Blood Glucose 107 Finger Stick Blood Glucose 107 Finger Stick Blood Glucose 108 Finger Stick Blood Glucose 108 Finger Stick Blood Glucose 108 Finger Stick Blood Glucose 108 DM Control: Reviewed Insulin Dosing, Diabetic Medication: Has order for SS insulin Cardiac Review Cardiac Review: Troponin I 140 ng/L (< or =60) H* 01/03/24 11:30 Blood Pressure 150/85 1132 Blood Pressure 139/81 0732 Blood Pressure 139/81 0653 Blood Pressure 118/68 0628 Blood Pressure 136/83 0450 BP, HR, EF%: Reviewed (BP 150/85 and HR 101) QTc Review QTc: Reviewed (427 from 01/03/24) IV to PO Switch IV Medications: Reviewed (Patient currently NPO) Home Meds Home Med List reviewed: Reviewed Relevent Home Meds Not ordered & why?: Hydrochlorothiazide - patient currently NPO, discuss with MD once status changes Current Meds Current Medication Order Review: Reviewed Comments: Order was put in for hyaluronidate 60mg syringe for extravasation. I changed order to what we have in stock, hyaluronidase 150 units/mL vial. Vial and instructions on how to administer were went up to [facility] floor. Pharmacy Antibiotic Review Pharmacy Antibiotic Activity: Reviewed, no change Comments: Patient currently on ceftriaxone and metronidazole, day 1. No cultures pending, WBC WNL and afebrile.
[2024-01-03] MEDS: MORPHine 4 MG/ML SYR SC (13:39)
[2024-01-03] MEDS: Ondansetron O.D.T. 4 MG TABEF PO (13:40)
[2024-01-03] MEDS: Hyaluronidase 150 UNITS VIAL ID (13:46)
[2024-01-03] MEDS: Water,Injection,Sterile 10 ML VIAL (13:46)
[2024-01-03] MEDS: Metoprolol 12.5 MG TAB PO ×2 (15:09→20:14)
[2024-01-03] MEDS: metroNIDAZOLE 500 MG/100 ML BAG 100 MG IVPB ×2 (15:21→21:58)
--- NOTE | 2024-01-03 15:58 | CHAPLAIN ---
I visited briefly with Blanka's family, explaining my role and offering support.
[2024-01-03] MEDS: POTASSIUM CHLORIDE/D5-0.45NACL 1,000 ML 125 MEQ IV (16:15)
--- NOTE | 2024-01-03 16:52 | W.SURGCON ---
Date of service: 01/03/24 Time of Service: 14:00 Assessment and Plan Assessment and plan (1) Gallbladder sludge: Status: Acute Assessment and plan: US 01/03/24 Exam is limited by bowel gas and patient condition. LIVER: Increased echogenicity consistent with moderate hepatic steatosis. No focal liver lesions are seen. GALLBLADDER: Sludge. No stones identified. No evidence of wall thickening. No pericholecystic fluid identified. SOLORIO'S SIGN: Negative. BILIARY SYSTEM: No intrahepatic or extrahepatic biliary ductal dilation. Right kidney: No evidence of renal calculi. No evidence of hydronephrosis. No renal mass or cyst identified. PANCREAS: Normal where visualized. ASCITES: None seen. IMPRESSION: Moderate hepatic steatosis. Gallbladder sludge. -Patient has had no fever and no white count. There is no signs of wall thickening or edema on CT or ultrasound. She has had some loose stools. Is unclear whether she has eaten or not. -Patient's reaction that is out of proportion to findings ultrasound or labs. -She is currently on ceftriaxone and Rocephin -If she continues to not being able to eat/has pain over the weekend, then cholecystotomy drain at [facility] on Saturday. I did have anesthesia review the chart and they agreed she is not a candidate for surgery at [facility], if at all. (2) Subendocardial ischemia: Status: Acute (3) Elevated troponin level not due myocardial infarction: Status: Acute Assessment and plan: echo 01/03/24 Conclusion Technically limited study Left ventricle appears normal in size, wall thickness and systolic function. EF 55-60%. No wall motion abnormalites identified Right ventricle and right atrium appear normal in size Normal left atrial size There are no structural or hemodynamically significant valvular abnormalities seen on this study (4) PAF (paroxysmal atrial fibrillation): Status: Acute (5) Abdominal pain, acute, right upper quadrant: Status: Acute (6) Urinary tract infection: Status: Acute Qualifiers: Hematuria presence: with hematuria Urinary tract infection type: acute cystitis Qualified Code(s): N30.01 - Acute cystitis with hematuria (7) Hypertension: Qualifiers: Hypertension type: primary hypertension Qualified Code(s): I10 - Essential (primary) hypertension (8) Diabetes mellitus: Qualifiers: Chronic kidney disease stage: stage 3 (moderate) Chronic kidney disease stage 3 subtype: stage 3b (GFR 30-44) Diabetes mellitus complication detail: with chronic kidney disease Diabetes mellitus complication status: with kidney complications Diabetes mellitus salesperson women's hats insulin use: without salesperson women's hats use Diabetes mellitus type: type 2 Qualified Code(s): E11.22 - Type 2 diabetes mellitus with diabetic chronic kidney disease; N18.32 - Chronic kidney disease, stage 3b (9) Peptic ulcer disease: Assessment and plan: PPI (10) Chronic renal insufficiency: Qualifiers: Chronic kidney disease stage: stage 3 (moderate) Chronic kidney disease stage 3 subtype: stage 3b (GFR 30-44) Qualified Code(s): N18.32 - Chronic kidney disease, stage 3b (11) Hx MRSA infection: (12) Hx of hepatitis: (13) Reactive airway disease: Qualifiers: Asthma complication type: uncomplicated Asthma persistence: persistent Asthma severity: moderate Qualified Code(s): J45.40 - Moderate persistent asthma, uncomplicated (14) DJD (degenerative joint disease), lumbosacral: Status: Acute (15) Aortic atherosclerosis: Status: Acute (16) History of back surgery: Status: Acute (17) Diverticulosis: Status: Acute Assessment and plan: She does not have any diverticulitis. (18) Pleural effusion, right: Status: Acute (19) Acute UTI (urinary tract infection): Status: Acute (20) Difficult intravenous access: Status: Acute (21) Metabolic dysfunction-associated steatohepatitis (MASH): Status: Acute (22) Psychoses: Status: Acute Assessment and plan: - Patient has had multiple admissions to geriatric psych at [facility] (23) Carotid atherosclerosis: Status: Acute Assessment and plan: - Patient had 2 strokes back to back in 2020 in the similar region. reviewing the notes in her discharge summary from that admission in [facility] in 2020: As this [stroke ] was likely a result of intraoperative hypotension exacerbating the previous stroke, further operation should be avoided unless a thorough risk/benefits conversation is had with the patient Patient is not cognizant enough to to have a conversation. I did talk with her son and her daughter. They also understand and do not wish her to have any more surgery. Will try antibiotics weekend. If she is not feeling any better on Saturday we will have her go down to [facility] for cholecystotomy tube. She currently is a resident of [facility] and rehab. We did not get any history from them. This document was created with voice activated software and may contain errors. 75 mins spent with the patient today. (24) Hyperlipemia: Status: Acute (25) Hx pulmonary embolism: Status: Acute (26) Type II diabetes mellitus: Status: Acute (27) Obesity: Status: Chronic (28) Vertigo: Status: Acute (29) Dysphagia: Status: Acute (30) Chronic GERD: Status: Acute (31) Chronic liver disease: Status: Acute (32) Stage 3b chronic kidney disease: Status: Acute (33) Chronic anemia: Status: Acute (34) History of poliomyelitis: Status: Acute (35) Chronic back pain: Status: Acute (36) CVA (cerebral vascular accident): Status: Chronic (37) Memory loss: Status: Acute (38) TBI (traumatic brain injury): Status: Acute (39) History of orthopedic surgery: (40) Fracture of humeral head, right, closed: Status: Acute (41) Pneumonia: Status: Acute (42) Candidiasis of perineum: Status: Acute History of Present Illness Narrative: Patient is a 78-year-old female who was admitted from the group home earlier this morning. Apparently at the group home she was clutching her abdomen and complaining of pain. And so they brought her to the emergency room. Patient cannot give any history. She has had strokes in the past. Her son and daughter are here today. She is having some diarrhea. It is unknown if she has been vomiting or unable to eat. No records were transferred over from the group home. The daughter states she cannot ever have anesthesia again because last time she her brain started bleeding. She is on Plavix. She has had a stroke in the past. She has paroxysmal A-fib. They deny any history of heart attack. She has had multiple orthopedic surgeries. In reviewing her [facility] chart. She has had 2 strokes. She has had two strokes in the region of the posterior occiput. She has had multiple strokes in the corpus callosum, hippocampus. She has had multiple lacunar infarcts and atrophy of the brain matter. She has moderate to severe narrowing of the left carotid. She had an echo in 2020 that showed mild septal hypertrophy of the left ventricle /ejection fraction of approximately 65%/ no valvular heart disease CT: Upon reviewing her CT, her gallbladder is somewhat distended and there are a few gallstones present. There are no signs indicating acute cholecystitis. She has diverticulosis but no signs of diverticulitis She does have a small right pleural effusion and possible pneumonia. She has severe atherosclerosis US She does have quite a bit debris and sludge in her gallbladder, at least filling up a quarter of the gallbladder. There is no signs of active diverticular disease. I did review her case with our anesthesia department. There is no way we could operate on her for surgery [facility]. After her last surgery of stroke, I do not think she is a good candidate for surgery anywhere. Review of Systems Unobtainable due to mental status PFSH All Active Problems (Updated 01/04/24 @ 15:30 by Theresa Loving DO) Candidiasis of perineum (Acute) Pneumonia (Acute) Fracture of humeral head, right, closed (Acute) Fx 09/28/23. 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) (Acute) Difficult intravenous access (Acute) Acute UTI (urinary tract infection) (Acute) Pleural effusion, right (Acute) Diverticulosis (Acute) History of back surgery (Acute) For tethered cord Aortic atherosclerosis (Acute) DJD (degenerative joint disease), lumbosacral (Acute) Psychoses (Acute) Type II diabetes mellitus (Acute) Vertigo (Acute) Chronic liver disease (Acute) Due to hepatitis History of poliomyelitis (Acute) Hx pulmonary embolism (Acute) Chronic GERD (Acute) TBI (traumatic brain injury) (Acute) Hyperlipemia (Acute) Chronic back pain (Acute) Chronic anemia (Acute) Stage 3b chronic kidney disease (Acute) Dysphagia (Acute) Obesity (Chronic) Sleep apnea, obstructive (Chronic) Memory loss (Acute) Non-smoker (Acute) Carotid atherosclerosis (Acute) CVA (cerebral vascular accident) (Chronic) x2 Gallbladder sludge (Acute) PAF (paroxysmal atrial fibrillation) (Acute) Dehydration (Acute) Hypokalemia (Acute) Elevated troponin level not due myocardial infarction (Acute) Abdominal pain, acute, right upper quadrant (Acute) Subendocardial ischemia (Acute) Urinary tract infection (Acute) Medical History (Updated 01/04/24 @ 15:30 by Theresa Loving DO) Peptic ulcer disease Hypertension Chronic renal insufficiency Reactive airway disease Diabetes mellitus Hx of hepatitis Hx MRSA infection Surgical History (Updated 01/03/24 @ 22:41 by Theresa Loving DO) History of orthopedic surgery Patient has had many foot and ankle surgeries. Knee Replacement Hip Surgery EGD - MAC Colonoscopy - MAC Family History Mother Diabetes Small bowel infarction Father Lung cancer Thyroid disease Sister Myocardial infarction Brother Myocardial infarction Social History Smoking risk assessment performed?: No Housing: group home Do you feel safe at home: Yes Exam Const General: anxious and combative Nutritional Appearance: overweight HENMT Other: No jaundice Edentulous top teeth. Bottom teeth are poor No JVD Resp Effort & Inspection: able to speak in complete sentences Other: Clear to auscultation bilaterally Cardio Rate: regular rate Rhythm: regular rhythm GI Other: I did not appreciate any prior surgical scarring on the abdomen. No distention Positive bowel sounds Patient seems to be having pain in the right upper quadrant Extrem Other: IV infiltration in left upper arm PICC line will be placed today Results Last Vital Signs Temp 36.5 C 01/03/24 15:24 Pulse 92 H 01/03/24 15:24 Resp 20 01/03/24 15:24 BP 136/72 01/03/24 15:24 Pulse Ox 95 01/03/24 15:24 Labs 01/04/24 10:10 01/04/24 10:10 Labs: Laboratory Results - last 24 hr 01/03/24 01/03/24 01/03/24 02:04 03:40 06:09 WBC 7.83 RBC 3.13 L Hgb 9.0 L Hct 28.1 L MCV 90 MCH 28.8 MCHC 32.0 RDW 15.8 H Plt Count 145 MPV 9.7 Immature Gran % 0.8 Neutrophils % 85.2 Lymphocytes % 10.6 Monocytes % 3.4 Eosinophils % 0.0 Basophils % 0.0 Nucleated RBC % 0.0 Absolute Neutrophils 6.67 Absolute Lymphocytes 0.83 L Absolute Monocytes 0.27 Absolute Eosinophils 0.00 Absolute Basophils 0.00 PT INR Sodium 146 H Potassium 3.2 L Chloride 109 H Carbon Dioxide 23.8 Anion Gap 13.2 H BUN 42 H Creatinine 1.7 H Est GFR (CKD-EPI 2020) 30.50 Glucose 105 Calcium 8.7 Magnesium Total Bilirubin 1.2 H AST 49 H ALT 17 Alkaline Phosphatase 156 H Troponin I 136 H* Total Protein 6.2 L Albumin 2.1 L Lipase 23 TSH Urine Color Yellow Urine Clarity Sl Cloudy Urine pH 6.0 Ur Specific [place] >= 1.030 H Urine Protein 100 H Urine Ketones 15 H Urine Blood Trace-intact H Urine Nitrite Negative Urine Bilirubin Large H Urine Urobilinogen 1.0 H Ur Leukocyte Esterase Small H Urine RBC 5-10 H Urine WBC 10-20 H Ur Epithelial Cells Moderate Urine Crystals Negative Urine Bacteria Few Urine Casts Negative Urine Mucus Negative Ur Culture Indicated? No/Sq. Contamination Urine Glucose Negative COVID-19 Source SARS-CoV-2 (PCR) MRSA (TEM-PCR) Negative Patient ABO/Rh 01/03/24 01/03/24 01/03/24 06:30 07:30 10:27 WBC RBC Hgb Hct MCV MCH MCHC RDW Plt Count MPV Immature Gran % Neutrophils % Lymphocytes % Monocytes % Eosinophils % Basophils % Nucleated RBC % Absolute Neutrophils Absolute Lymphocytes Absolute Monocytes Absolute Eosinophils Absolute Basophils PT 12.5 H INR 1.3 H Sodium Potassium Chloride Carbon Dioxide Anion Gap BUN Creatinine Est GFR (CKD-EPI 2020) Glucose Calcium Magnesium 2.0 Total Bilirubin AST ALT Alkaline Phosphatase Troponin I 152 H* Total Protein Albumin Lipase TSH 0.66 Urine Color Urine Clarity Urine pH Ur Specific [place] Urine Protein Urine Ketones Urine Blood Urine Nitrite Urine Bilirubin Urine Urobilinogen Ur Leukocyte Esterase Urine RBC Urine WBC Ur Epithelial Cells Urine Crystals Urine Bacteria Urine Casts Urine Mucus Ur Culture Indicated? Urine Glucose COVID-19 Source Nasal/Nares SARS-CoV-2 (PCR) Negative MRSA (TEM-PCR) Patient ABO/Rh Cancelled 01/03/24 11:30 WBC RBC Hgb Hct MCV MCH MCHC RDW Plt Count MPV Immature Gran % Neutrophils % Lymphocytes % Monocytes % Eosinophils % Basophils % Nucleated RBC % Absolute Neutrophils Absolute Lymphocytes Absolute Monocytes Absolute Eosinophils Absolute Basophils PT INR Sodium Potassium Chloride Carbon Dioxide Anion Gap BUN Creatinine Est GFR (CKD-EPI 2020) Glucose Calcium Magnesium Total Bilirubin AST ALT Alkaline Phosphatase Troponin I 140 H* Total Protein Albumin Lipase TSH Urine Color Urine Clarity Urine pH Ur Specific [place] Urine Protein Urine Ketones Urine Blood Urine Nitrite Urine Bilirubin Urine Urobilinogen Ur Leukocyte Esterase Urine RBC Urine WBC Ur Epithelial Cells Urine Crystals Urine Bacteria Urine Casts Urine Mucus Ur Culture Indicated? Urine Glucose COVID-19 Source SARS-CoV-2 (PCR) MRSA (TEM-PCR) Patient ABO/Rh
[2024-01-03] MEDS: MORPHine 2 MG/ML SYR IVP (20:13)
[2024-01-03] MEDS: Pantoprazole 40 MG VIAL IVP (20:14)
[2024-01-03] MEDS: Budesonide/Formoterol 160/4.5 6 GM 60 PUFF INH IH (20:42)
--- NOTE | 2024-01-04 | DI.RAD_ITS ---
Exam(s) XR SHOULDER LT COMPLETE 2+V EXAM: XR SHOULDER LT COMPLETE 2+V CLINICAL HISTORY: pain. TECHNIQUE: 2D digital imaging was performed. COMPARISON: No exams were available for comparison FINDINGS: Five views. No evidence of acute fracture or dislocation nor abnormal soft tissue calcifications in the subacromi al space. The main finding here is advanced osteoarthritic degenerative change in the glenohumeral joint with b one-on-bone narrowing, degenerative subarticular cysts, as well as gayle-type osteophyte on the infer ior articular surface of the humeral head. The subacromial space is not diminished. No ominous osse ous lesions evident. IMPRESSION: Advanced osteoarthritic changes in the glenohumeral joint. No fracture evident. DATA REPOSITORY: RADIATION DOSE DELIVERED:
[2024-01-04] MEDS: Metoprolol 12.5 MG TAB PO ×4 (01:56→20:04)
[2024-01-04] MEDS: Heparin 5,000 UNITS/ML VIAL 5000 UNITS SC ×2 (01:56→11:30)
[2024-01-04] MEDS: POTASSIUM CHLORIDE/D5-0.45NACL 1,000 ML 125 MEQ IV (01:57)
[2024-01-04] MEDS: metroNIDAZOLE 500 MG/100 ML BAG 100 MG IVPB ×4 (03:57→22:16)
[2024-01-04 04:02] VITALS: BP 127/73; PULSE 98; RESP 20; TEMP 36; O2SAT 97
[2024-01-04] MEDS: MORPHine 2 MG/ML SYR IVP ×3 (06:29→17:30)
[2024-01-04] MEDS: cefTRIAXone 1 GM/50 ML BAG IVPB (06:29)
[2024-01-04] MEDS: Normal Saline Flush 10 ML SYR IVP ×6 (06:30→22:29)
[2024-01-04] MEDS: Pantoprazole 40 MG VIAL IVP ×2 (08:05→19:55)
[2024-01-04 08:10] VITALS: BP 150/84; PULSE 95; RESP 20; TEMP 36.4; O2SAT 97
[2024-01-04] MEDS: ACETAMINOPHEN 1,000 MG/100 ML BTL 400 MG IVPB (08:15)
[2024-01-04 10:23] LABS: HCT 30.8 % (36.0-46.0); HGB 9.4 g/dL (11.2-15.7); MCH 28.2 pg (27.0-33.0); MCHC 30.5 % (32.0-36.0); MCV 93 fL (80-95); MPV 9.6 fL (8.0-11.0); Platelet Count 129 10^3/uL (130-400); RBC 3.33 10^6/uL (3.93-5.22); RDW 16.2 % (11.7-14.6); WBC 6.81 10^3/uL (4.4-10.8)
[2024-01-04 10:36] LABS: ALT 17 U/L (14-59); AST 52 U/L (15-37); Albumin 1.9 g/dL (3.4-5.0); Alkaline Phosphatase 172 U/L (46-116); Anion Gap 8.8 mmol/L (3-11); BUN 38 mg/dL (7-18); Bilirubin, Total 0.5 mg/dL (0.2-1.0); CO2 22.2 mmol/L (21.0-32.0); CREATININE 1.8 mg/dL (0.55-1.02); Calcium 8.5 mg/dL (8.5-10.1); Chloride 111 mmol/L (98-107); Estimated GFR 28.48 (mL/min/1.73m2); Glucose 138 mg/dL (74-106); Magnesium 1.7 mg/dL (1.8-2.4); Potassium 4.6 mmol/L (3.5-5.1); Sodium 142 mmol/L (136-145); Total Protein 5.6 g/dL (6.4-8.2)
[2024-01-04 10:44] LABS: Troponin I 104 ng/L (< or =60)
[2024-01-04 10:55] LABS: Bilirubin Moderate (Negative); Blood Trace-intact (Negative); Clarity Clear (Clear); Glucose Negative (Negative); Ketones Trace mg/dL (Negative); Leukocyte Esterase Negative (Negative); Nitrite Positive (Negative); Specific Gravity 1.025 (1.005-1.025); Urobilinogen 0.2 mg/dL (Up to 0.2)
[2024-01-04 11:06] LABS: Bacteria Few HPF (Negative); Epithelial Cells Few HPF (Negative); Other Cells Few Yeast (Negative); RBC 0-2 HPF (0-2); WBC 0-2 HPF (0-5)
[2024-01-04 11:07] LABS: C & S Indicated? Yes; Casts 5-10 Hyaline LPF (Negative); Crystals Negative HPF (Negative); Mucus Trace (Negative)
--- NOTE | 2024-01-04 12:03 | W.PM.PROGNOT ---
Date of Service Date of service: 01/04/24 Time of Service: 12:03 Assessment and Plan Assessment and plan (1) Abdominal pain, acute, right upper quadrant: Status: Acute Assessment and plan: surgery following with suspicion of gall bladder, pain now lower abdomen. will add flagyl to ceftriaxone she is taking for UTI no fever, still with poor po intake. no vomiting. no bm for 2 days with some urinary retention this am. will try bowel management. difficult evaluation secondary to severe advanced dementia, hemodynamically stable. will respond ouch when touching extremities also. plavix has been on hold for possible cholecystectomy early next week. continue to closely monitor (2) Elevated troponin level not due myocardial infarction: Status: Acute Assessment and plan: Mildly elevated troponin as stated most likely secondary to acute process. have remained flat, no further evaluation at this time (3) Urinary tract infection: Status: Acute Assessment and plan: continue ceftriaxone day 2 while cultures pending Qualifiers: Hematuria presence: with hematuria Urinary tract infection type: acute cystitis Qualified Code(s): N30.01 - Acute cystitis with hematuria (4) Hypokalemia: Status: Acute Assessment and plan: Repletion and follow-up. This may be nutritional. Patient is not on diuretics. (5) Dehydration: Status: Acute Assessment and plan: Gentle IV hydration with echocardiogram to assess cardiac output. Monitor for fluid overload. Follow-up labs. (6) PAF (paroxysmal atrial fibrillation): Status: Acute (7) Chronic renal insufficiency: Assessment and plan: Slightly exacerbated with dehydration. Trend labs. avoid nephrotoxic drugs Qualifiers: Chronic kidney disease stage: stage 3 (moderate) Chronic kidney disease stage 3 subtype: stage 3b (GFR 30-44) Qualified Code(s): N18.32 - Chronic kidney disease, stage 3b (8) Reactive airway disease: Assessment and plan: On chronic inhalers which will be continued. Chest x-ray because of right lower lung findings and if pneumonia consider expanding antibiotic therapy. Qualifiers: Asthma complication type: uncomplicated Asthma persistence: persistent Asthma severity: moderate Qualified Code(s): J45.40 - Moderate persistent asthma, uncomplicated (9) Diabetes mellitus: Qualifiers: Chronic kidney disease stage: stage 3 (moderate) Chronic kidney disease stage 3 subtype: stage 3b (GFR 30-44) Diabetes mellitus complication detail: with chronic kidney disease Diabetes mellitus complication status: with kidney complications Diabetes mellitus mcfp insulin use: without intermediate project manager use Diabetes mellitus type: type 2 Qualified Code(s): E11.22 - Type 2 diabetes mellitus with diabetic chronic kidney disease; N18.32 - Chronic kidney disease, stage 3b (10) Hypertension: Qualifiers: Hypertension type: primary hypertension Qualified Code(s): I10 - Essential (primary) hypertension Subjective Subjective Patient reports: still having pain (lower abd pain, seems improved overnight) Interval history since last seen: patient with no BM, Exam Narrative Exam Narrative: elderly female, stated age, in no acute distress. head atraumatic normocephalic. eyes non injected, non icteric, neck with full range of motion. respirations even and unlabored, cardiac regular rate and rhythm, abd slightly distended, hypoactive bowel sounds. guarding. moves all extremities. Objective Last Vital Signs Temp 36.4 C L 01/04/24 08:10 Pulse 95 H 01/04/24 08:10 Resp 20 01/04/24 08:10 BP 150/84 H 01/04/24 08:10 Pulse Ox 97 01/04/24 08:10 Laboratory Results - last 24 hr 01/03/24 01/04/24 01/04/24 11:30 10:10 10:46 WBC 6.81 RBC 3.33 L Hgb 9.4 L Hct 30.8 L MCV 93 MCH 28.2 MCHC 30.5 L RDW 16.2 H Plt Count 129 L MPV 9.6 Sodium 142 Potassium 4.6 D Chloride 111 H Carbon Dioxide 22.2 Anion Gap 8.8 BUN 38 H Creatinine 1.8 H Est GFR (CKD-EPI 2020) 28.48 Glucose 138 H Calcium 8.5 Magnesium 1.7 L Total Bilirubin 0.5 AST 52 H ALT 17 Alkaline Phosphatase 172 H Troponin I 140 H* 104 H* Total Protein 5.6 L Albumin 1.9 L Urine Color Dark Yellow Urine Clarity Clear Urine pH 6.0 Ur Specific [place] 1.025 Urine Protein 100 H Urine Ketones Trace H Urine Blood Trace-intact H Urine Nitrite Positive H Urine Bilirubin Moderate H Urine Urobilinogen 0.2 Ur Leukocyte Esterase Negative Urine RBC 0-2 Urine WBC 0-2 Ur Epithelial Cells Few Urine Crystals Negative Urine Bacteria Few Urine Casts 5-10 Hyaline Urine Mucus Trace Urine Other Few Yeast Ur Culture Indicated? Yes Urine Glucose Negative Time Spent with Patient Time Spent with Patient: 25-34 minutes Time was spent: preparing to see the patient(eg.review tests), obtaining and/or reviewing separately otained hiistory, ordering medications,tests, procedures, indepentently interpreting results and counseling the patient
--- NOTE | 2024-01-04 12:15 | PGE_ITS ---
Date of Service Date of service: 01/04/24 Time of Service: 12:15 Assessment and Plan Assessment and plan (1) Psychoses: Status: Acute (2) Subendocardial ischemia: Status: Acute (3) PAF (paroxysmal atrial fibrillation): Status: Acute (4) Carotid atherosclerosis: Status: Acute (5) Aortic atherosclerosis: Status: Acute (6) Difficult intravenous access: Status: Acute (7) Hyperlipemia: Status: Acute (8) Hx pulmonary embolism: Status: Acute (9) Type II diabetes mellitus: Status: Acute (10) Obesity: Status: Chronic (11) Vertigo: Status: Acute (12) Dysphagia: Status: Acute (13) Chronic GERD: Status: Acute (14) Gallbladder sludge: Status: Acute (15) Chronic liver disease: Status: Acute (16) Metabolic dysfunction-associated steatohepatitis (MASH): Status: Acute (17) Diverticulosis: Status: Acute (18) Abdominal pain, acute, right upper quadrant: Status: Acute (19) Stage 3b chronic kidney disease: Status: Acute (20) Urinary tract infection: Status: Acute Qualifiers: Urinary tract infection type: acute cystitis Hematuria presence: with hematuria Qualified Code(s): N30.01 - Acute cystitis with hematuria (21) Chronic anemia: Status: Acute (22) History of poliomyelitis: Status: Acute (23) Candidiasis of perineum: Status: Acute (24) Fracture of humeral head, right, closed: Status: Acute (25) CVA (cerebral vascular accident): Status: Chronic (26) Memory loss: Status: Acute (27) TBI (traumatic brain injury): Status: Acute (28) Pleural effusion, right: Status: Acute (29) Pneumonia: Status: Acute (30) Sleep apnea, obstructive: Status: Chronic (31) Non-smoker: Status: Acute (32) Gallstones: Status: Acute Assessment and plan: - Patient is not a candidate for surgery because of her multiple medical medical problems. Continue antibiotics ? Swallow mendel- -electrolytes managed per hospitalist service If she still is having severe pain and can eat Saturday we will schedule her for cholecystotomy tube down at [facility].- Diflucan sent for severe vulvovaginal candidiasis Subjective Subjective Interval history since last seen: Patient cannot give any history or answer questions. Per nursing she is not eating anything. She is moving her bowels. When asked if she is in pain she says no but then she groans and clutches her sometimes upper sometimes lower abdomen. Exam GI Other: Patient does have pain in the right upper quadrant. She does not have any distention. She does have abdominal pain. She does not have peritonitis. She does not have any jaundice. Objective Last Vital Signs Temp 36.4 C L 01/04/24 08:10 Pulse 95 H 01/04/24 08:10 Resp 20 01/04/24 08:10 BP 150/84 H 01/04/24 08:10 Pulse Ox 97 01/04/24 08:10 Laboratory Results - last 24 hr 01/03/24 01/04/24 01/04/24 11:30 10:10 10:46 WBC 6.81 RBC 3.33 L Hgb 9.4 L Hct 30.8 L MCV 93 MCH 28.2 MCHC 30.5 L RDW 16.2 H Plt Count 129 L MPV 9.6 Sodium 142 Potassium 4.6 D Chloride 111 H Carbon Dioxide 22.2 Anion Gap 8.8 BUN 38 H Creatinine 1.8 H Est GFR (CKD-EPI 2020) 28.48 Glucose 138 H Calcium 8.5 Magnesium 1.7 L Total Bilirubin 0.5 AST 52 H ALT 17 Alkaline Phosphatase 172 H Troponin I 140 H* 104 H* Total Protein 5.6 L Albumin 1.9 L Urine Color Dark Yellow Urine Clarity Clear Urine pH 6.0 Ur Specific [place] 1.025 Urine Protein 100 H Urine Ketones Trace H Urine Blood Trace-intact H Urine Nitrite Positive H Urine Bilirubin Moderate H Urine Urobilinogen 0.2 Ur Leukocyte Esterase Negative Urine RBC 0-2 Urine WBC 0-2 Ur Epithelial Cells Few Urine Crystals Negative Urine Bacteria Few Urine Casts 5-10 Hyaline Urine Mucus Trace Urine Other Few Yeast Ur Culture Indicated? Yes Urine Glucose Negative Time Spent with Patient Time Spent with Patient: 25-34 minutes Time was spent: preparing to see the patient(eg.review tests), obtaining and/or reviewing separately otained hiistory, ordering medications,tests, procedures, referring, communicating with other health healthcare representative, indepentently interpreting results and care coordination
[2024-01-04] MEDS: DEXTROSE 5%-0.45% SALINE 1,000 ML 75 ML IV (12:35)
[2024-01-04] MEDS: Bisacodyl 10 MG SUPP PR (14:05)
[2024-01-04 15:47] VITALS: BP 118/77; PULSE 69; RESP 15; TEMP 36.1; O2SAT 99
[2024-01-04 16:45] LABS: Amylase 48 U/L (25-115); C-Reactive Protein 4.96 mg/dL (<or=0.5)
[2024-01-04 17:21] LABS: Ferritin 655 ng/mL (8-252); Folate 2.1 ng/mL (8.6-20.0); Vitamin B12 768 pg/mL (193-986)
[2024-01-04] MEDS: Normal Saline 250 ML 500 ML IV (17:30)
[2024-01-04] MEDS: MAGNESIUM SULFATE 1 GM/100 ML BAG IVPB (19:24)
[2024-01-04] MEDS: fentaNYL 100 MCG/2 ML VIAL 50 MCG IVP ×2 (19:54→22:28)
[2024-01-04 19:55] VITALS: BP 127/77; PULSE 74
[2024-01-04 22:39] VITALS: BP 93/45; PULSE 71; RESP 12; TEMP 35.5; O2SAT 96
[2024-01-05] VITALS (7 sets, daily range): BP systolic 108–150; BP diastolic 65–82; PULSE 74–88; RESP 18–19; TEMP 36–36.7; O2SAT 96–98
--- NOTE | 2024-01-05 | DI.CT_ITS ---
Exam(s) CT ABDOMEN PELVIS CTA EXAM: CT ABDOMEN PELVIS CTA CLINICAL HISTORY: abdominal pain, melena. TECHNIQUE: Imaging Protocol: Axial computed tomography images with coronal and sagittal reformatted images were created and reviewed CONTRAST MATERIAL: Intravenous: Omnipaque 350 Contrast volume:100 ml Oral: None COMPARISON: CT CT ABDOMEN PELVIS WO from 01/03/2024 FINDINGS: The uppermost images of this abdominal study reveal a large intraluminal filling defect in the right main pulmonary artery consistent with acute pulmonary embolus. Distal vessels are also involved and there also appears to be intraluminal thrombus in left lower lobe pulmonary arteries.. The upper lob e arteries are not included in the field of view of this abdominal study. There does not appear to b e shift of the interventricular septum. Coronary artery calcification is noted. There is no pericar dial effusion. No obvious aortic dissection. LUNGS: There is a right pleural effusion noted which is partially loculated is increased in size from CT scan of 01/03/2024. Also some infiltrate noted in the right lower lobe posterior and lateral bas al segments. No pleural effusion on the opposite-left side. Mild scarring in left lung base.. MEDIASTINUM: There is no hilar nor mediastinal adenopathy. Visualized thyroid unremarkable. CARDIAC: Heart size is normal. There is no pericardial effusion. No obvious shift of the interventr icular septum. Coronary artery calcification is noted AORTA: Caliber of the thoracic aorta is within normal limits.There is no evidence of aortic dissectio n. ABDOMEN: There is no evidence of abdominal aortic aneurysm nor dissection.There is no aneurysmal dilatation of the common iliac arteries.Moderate narrowing at the origin of the celiac artery. Superior mesenteri c artery is patent. Inferior mesenteric artery is patent. The right renal artery is patent. There is heavily calcified plaque at the origin of the left renal artery. Probable significant stenosis at this level. There is no ascites. LIVER: Liver is hypodense implying steatosis. There no discrete focal hepatic lesions identified. GALLBLADDER/BILIARY: Gallbladder is distended and contains small calculi on the dependent wall. The CBD is dilated exhibiting diameter of 1.3 cm. No obvious radiopaque calculus in the lower CBD nor so ft tissue mass nor obvious pancreatic head mass. PANCREAS: No evidence of pancreatic mass nor dilatation of the pancreatic duct. SPLEEN: Spleen is not enlarged. There are no intrasplenic lesions. Splenic and portal veins are voss nt. ADRENALS: There are no significant adrenal masses. KIDNEYS: No cysts evident. No calculi nor hydronephrosis. No solid renal masses. ABDOMINAL AORTA: The abdominal aorta is not enlarged. LYMPH NODES: There is no retroperitoneal nor para-aortic adenopathy. No obvious mesenteric masses. ABDOMINAL WALL: No evidence of significant anterior abdominal wall hernia. GI: There is no evidence of bowel obstruction, free air, nor abscess. PELVIS: LYMPH NODES: There is no intrapelvic nor inguinal adenopathy. GI: No evidence of appendicitis.No evidence of sigmoid diverticulitis. URINARY BLADDER: There is a Conde catheter in the urinary bladder. The bladder is collapsed around t he Conde. REPRODUCTIVE: Uterus and adnexal regions appear age-appropriate. OSSEOUS: Right hip arthroplasty noted. Chronic disc space narrowing L4-5 and L5-S1 levels. No listhesis. No pars defects. No significant osseous lesions evident. IMPRESSION: 1. On this abdominal scan the main findings are actually on the uppermost images in the chest where t here is a large embolus in the right main pulmonary artery and also pulmonary emboli evident in both lower lobe arteries. Can not exclude the possibly that there also emboli in the upper lobe arteries which are not included in the field of view here. 2. Right sided pleural effusion which appears partially loculated. 3. Cholelithiasis and moderate gallbladder distension but without gallbladder wall edema nor perichol ecystic fluid. However, the CBD is dilated to 1.3 cm. There is no radiopaque calculus in the lower CBD. There is no pancreatic head mass. 4. There is a tight stenosis at the origin of the celiac artery off the aorta. Similar findings not seen at the SMA origin nor evidence of embolus within the SMA. However, there does appear to be sign ificant plaque with significant stenosis at the origin the left renal artery. Both kidneys exhibit n ormal size. Conde catheter noted in the bladder. Right hip arthroplasty noted. RADIATION DOSE DELIVERED: Total DLP DATA REPOSITORY: All CT scans at this facility are submitted to the National Radiology Data Registry (NRDR) Dose Index Registry (DIR) with the [employer] (ACR). RADIATION OPTIMIZATION: All CT scans at this facility use at least one of these dose optimization te chniques: automated exposure control; mA and/or kV adjustment per patient size (includes targeted exa ms where dose is matched to clinical indication); or iterative reconstruction.
[2024-01-05] MEDS: Metoprolol 12.5 MG TAB PO (01:38)
[2024-01-05] MEDS: Normal Saline Flush 10 ML SYR IVP ×9 (02:05→22:17)
[2024-01-05] MEDS: fentaNYL 100 MCG/2 ML VIAL 50 MCG IVP ×2 (02:09→05:59)
[2024-01-05] MEDS: metroNIDAZOLE 500 MG/100 ML BAG 100 MG IVPB ×4 (03:44→20:55)
[2024-01-05] MEDS: cefTRIAXone 1 GM/50 ML BAG IVPB (05:56)
[2024-01-05 06:32] LABS: Abs Immature Grans 0.05 10^3/uL (0.0-0.06); Absolute Eosinophil Count 0.01 10^3/uL (0.0-0.7); Absolute Lymphocyte Count 0.58 10^3/uL (1.2-3.4); Absolute Neutrophil Count 4.07 10^3/uL (1.2-6.7); Eosinophils % 0.2; HCT 28.7 % (36.0-46.0); HGB 8.9 g/dL (11.2-15.7); Lymphocytes % 12.1; MCH 28.4 pg (27.0-33.0); MCV 92 fL (80-95); Monocytes % 2.1; Neutrophils % 84.6; Nucleated RBC 0.4 % (0.0-0.3); Platelet Count 100 10^3/uL (130-400); RBC 3.13 10^6/uL (3.93-5.22); RDW 16.2 % (11.7-14.6); RDW-SD 54.8 fL; WBC 4.81 10^3/uL (4.4-10.8)
[2024-01-05 06:41] LABS: Magnesium 1.9 mg/dL (1.8-2.4)
[2024-01-05 06:46] LABS: Hemoglobin A1C 6.2 % (<5.7)
[2024-01-05 06:50] LABS: ALT 16 U/L (14-59); AST 55 U/L (15-37); Albumin 1.7 g/dL (3.4-5.0); Alkaline Phosphatase 188 U/L (46-116); Anion Gap 11.3 mmol/L (3-11); BUN 31 mg/dL (7-18); Bilirubin, Total 0.5 mg/dL (0.2-1.0); CO2 19.7 mmol/L (21.0-32.0); CREATININE 1.6 mg/dL (0.55-1.02); Calcium 7.9 mg/dL (8.5-10.1); Chloride 113 mmol/L (98-107); Estimated GFR 32.81 (mL/min/1.73m2); Glucose 100 mg/dL (74-106); Potassium 3.7 mmol/L (3.5-5.1); Sodium 144 mmol/L (136-145); Total Protein 5.1 g/dL (6.4-8.2)
[2024-01-05 07:08] LABS: Amylase 62 U/L (25-115)
[2024-01-05 07:11] LABS: Lactate 2.8 mmol/L (0.6-1.4)
[2024-01-05 07:21] LABS: Lab Add On Test DONE
[2024-01-05] MEDS: ACETAMINOPHEN 1,000 MG/100 ML BTL 400 MG IVPB ×2 (07:44→20:05)
[2024-01-05] MEDS: Pantoprazole 40 MG VIAL IVP ×2 (07:44→20:00)
[2024-01-05] MEDS: Budesonide/Formoterol 160/4.5 6 GM 60 PUFF INH IH ×2 (07:54→20:22)
--- NOTE | 2024-01-05 08:32 | PGE_ITS ---
Date of Service Date of service: 01/05/24 Time of Service: 08:32 Assessment and Plan Assessment and plan (1) Abdominal pain, acute, right upper quadrant: Status: Acute Assessment and plan: abdominal pain seems more diffuse now and w/ elevated lactate and clots in her stool and pain seems out of proportion to her exam, I am concerned for ischemic bowel. I will proceed w/ CTA of abdomen and pelvis; however, if acute thrombosis secondary to her afib then unlikely a survivable event. Per my discussion w/ Deborah Mckenna, family is disinclined to proceed w/ any surgery when they were approached w/ possibel acute GB disease. She may have PUD but her elevated lactate and diffuse abdominal pains point more towards ischemic bowel. She is on protonix 40 mg IV BID. Critical care time spent interviewing and examining the patient, reviewing studies, discussing case with patient's nurse and consulting physicians was 45 minutes (2) Elevated troponin level not due myocardial infarction: Status: Acute Assessment and plan: likely type II demand ischemia, echo showed no LV or RV dysfunction and no RWMA. (3) Urinary tract infection: Status: Acute Assessment and plan: possible UTI, urine culture pending, remains on Rocephin. Qualifiers: Urinary tract infection type: acute cystitis Hematuria presence: with hematuria Qualified Code(s): N30.01 - Acute cystitis with hematuria (4) Hypokalemia: Status: Acute Assessment and plan: repleted, K 3.7, continue to monitor, she has KCl in her iv solution (5) Dehydration: Status: Acute Assessment and plan: creatinine improved to 1.6, continue w/ iv fluids as she is not taking in any PO, continue to monitor urine output (trinh just placed at 5 am today). (6) PAF (paroxysmal atrial fibrillation): Status: Acute Assessment and plan: not currently on telemetry monitoring. rhythm sounded regular this morning however difficult to hear from her moaning. (7) Chronic renal insufficiency: Assessment and plan: monitor urine output, BMP and continue iv fluids; CTA carries some risk of transient worsening of renal function but now that she has been hydrated w/ iv fluids, I think the informatin gained from CTA of her abdomen/pelvis is worth any risk of ATN from contrast. Qualifiers: Chronic kidney disease stage: stage 3 (moderate) Chronic kidney disease stage 3 subtype: stage 3b (GFR 30-44) Qualified Code(s): N18.32 - Chronic kidney disease, stage 3b (8) Reactive airway disease: Assessment and plan: stable. no wheezing this morning; continue maintenance meds. Qualifiers: Asthma severity: moderate Asthma persistence: persistent Asthma complication type: uncomplicated Qualified Code(s): J45.40 - Moderate persistent asthma, uncomplicated (9) Diabetes mellitus: Assessment and plan: monitor glucose q6h or AC/HS when able to eat Qualifiers: Diabetes mellitus type: type 2 Diabetes mellitus detention insulin use: without equipment operator intermodal yard use Diabetes mellitus complication status: with kidney complications Diabetes mellitus complication detail: with chronic kidney disease Chronic kidney disease stage: stage 3 (moderate) Chronic kidney disease stage 3 subtype: stage 3b (GFR 30-44) Qualified Code(s): E11.22 - Type 2 diabetes mellitus with diabetic chronic kidney disease; N18.32 - Chronic kidney disease, stage 3b (10) Hypertension: Assessment and plan: not a problems. currently on metoprolol for afib rate control. Qualifiers: Hypertension type: primary hypertension Qualified Code(s): I10 - Essential (primary) hypertension (11) Candidiasis of perineum: Status: Acute Assessment and plan: continue diflucan (12) Biliary sludge determined by ultrasound: Status: Acute Assessment and plan: cholecystostomy tube had been anticipated if she survived the weekend, much depends on whether or not she has acute ischemic bowel. If her abdominal pain is secondary to biliary process then urgent placement of the biliary tube would be indicated if intervention is desired by the family. Her labs this morining do not look like a biliary process, i.e. alkaline phosphate level is not going up and total bilirubin is normal. Subjective Subjective Interval history since last seen: Patient has had increasing abdominal pain, she can not point exactly where her pain is located and just rubs all over her abdomen. Nursing reported she had some blood clots w/ her stool last night. Exam Narrative Exam Narrative: Patient is moaning in pain. she is being medicated w/ fentanyl Lungs:clear Heart: rhythm sounds to be regular but difficult to tell d/t her moaning Abdomen: bowel sounds present although distant, abdomen is not distended, remains soft but diffusely tender w/ guarding Extremities; no edema or cyanosis Objective Last Vital Signs Temp 36.7 C 01/05/24 08:19 Pulse 79 01/05/24 08:19 Resp 19 01/05/24 08:19 BP 121/75 01/05/24 08:19 Pulse Ox 98 01/05/24 08:19 Laboratory Results - last 24 hr 01/04/24 01/04/24 01/05/24 10:10 10:46 06:18 WBC 6.81 4.81 RBC 3.33 L 3.13 L Hgb 9.4 L 8.9 L Hct 30.8 L 28.7 L MCV 93 92 MCH 28.2 28.4 MCHC 30.5 L 31.0 L RDW 16.2 H 16.2 H Plt Count 129 L 100 L MPV 9.6 10.0 Immature Gran % 1.0 Neutrophils % 84.6 Lymphocytes % 12.1 Monocytes % 2.1 Eosinophils % 0.2 Basophils % 0.0 Nucleated RBC % 0.4 H Absolute Neutrophils 4.07 Absolute Lymphocytes 0.58 L Absolute Monocytes 0.10 Absolute Eosinophils 0.01 Absolute Basophils 0.00 VBG Lactate Sodium 142 144 Potassium 4.6 D 3.7 Chloride 111 H 113 H Carbon Dioxide 22.2 19.7 L Anion Gap 8.8 11.3 H BUN 38 H 31 H Creatinine 1.8 H 1.6 H Est GFR (CKD-EPI 2020) 28.48 32.81 Glucose 138 H 100 Hemoglobin A1c 6.2 H Calcium 8.5 7.9 L Magnesium 1.7 L 1.9 Ferritin 655 H Total Bilirubin 0.5 0.5 AST 52 H 55 H ALT 17 16 Alkaline Phosphatase 172 H 188 H Troponin I 104 H* C-Reactive Protein 4.96 H Total Protein 5.6 L 5.1 L Albumin 1.9 L 1.7 L Amylase 48 62 Vitamin B12 768 Folate 2.1 L Urine Color Dark Yellow Urine Clarity Clear Urine pH 6.0 Ur Specific [place] 1.025 Urine Protein 100 H Urine Ketones Trace H Urine Blood Trace-intact H Urine Nitrite Positive H Urine Bilirubin Moderate H Urine Urobilinogen 0.2 Ur Leukocyte Esterase Negative Urine RBC 0-2 Urine WBC 0-2 Ur Epithelial Cells Few Urine Crystals Negative Urine Bacteria Few Urine Casts 5-10 Hyaline Urine Mucus Trace Urine Other Few Yeast Ur Culture Indicated? Yes Urine Glucose Negative Add-On Test Request DONE 01/05/24 07:04 WBC RBC Hgb Hct MCV MCH MCHC RDW Plt Count MPV Immature Gran % Neutrophils % Lymphocytes % Monocytes % Eosinophils % Basophils % Nucleated RBC % Absolute Neutrophils Absolute Lymphocytes Absolute Monocytes Absolute Eosinophils Absolute Basophils VBG Lactate 2.8 H* Sodium Potassium Chloride Carbon Dioxide Anion Gap BUN Creatinine Est GFR (CKD-EPI 2020) Glucose Hemoglobin A1c Calcium Magnesium Ferritin Total Bilirubin AST ALT Alkaline Phosphatase Troponin I C-Reactive Protein Total Protein Albumin Amylase Vitamin B12 Folate Urine Color Urine Clarity Urine pH Ur Specific [place] Urine Protein Urine Ketones Urine Blood Urine Nitrite Urine Bilirubin Urine Urobilinogen Ur Leukocyte Esterase Urine RBC Urine WBC Ur Epithelial Cells Urine Crystals Urine Bacteria Urine Casts Urine Mucus Urine Other Ur Culture Indicated? Urine Glucose Add-On Test Request Time Spent with Patient Time Spent with Patient: 35-49 minutes Time was spent: preparing to see the patient(eg.review tests), ordering medications,tests, procedures, referring, communicating with other health manager intensive care (Deborah Mckenna N.Gokul.; G[place] (patient's primary nurse)), indepentently interpreting results and care coordination
[2024-01-05 08:53] LABS: Lab Add On Test DONE
[2024-01-05] MEDS: MORPHine 2 MG/ML SYR IVP ×4 (09:31→20:54)
[2024-01-05 09:32] LABS: Procalcitonin 14.2 ng/mL
[2024-01-05] MEDS: Normal Saline - Diluent 50 ML VIAL IJ (09:49)
[2024-01-05] MEDS: Omnipaque 350 MG/ML 100 ML BTL IJ (09:51)
[2024-01-05 10:12] LABS: BE (Venous) -7 mmol/L (-2-3); HCO3 (Venous) 20 mmol/L (23-28); O2 Sat (Venous) 81 %; TCO2 (Venous) 19 mmol/L (24-29); pCO2 (Venous) 41 mmHg (41-51); pH (Venous) 7.29 (7.31-7.41); pO2 (Venous) 49 mmHg
[2024-01-05 10:13] LABS: HCT 25.4 % (36.0-46.0); HGB 7.7 g/dL (11.2-15.7)
[2024-01-05 10:18] LABS: Lactate 3.5 mmol/L (0.6-1.4)
--- NOTE | 2024-01-05 10:21 | DI.VRAD_ITS ---
PROCEDURE INFORMATION: Exam: CTA Abdomen and Pelvis With Contrast Exam date and time: 01/05/2024 9:50 AM Age: 78 years old Clinical indication: Other: Abdominal pain, melena TECHNIQUE: Imaging protocol: Computed tomographic angiography of the abdomen and pelvis with contrast. Exam focused on the arteries. 3D rendering (Not supervised by radiologist): MIP and/or 3D reconstructed images were created by the technologist. Contrast material: OMNIPAQUE 350; Contrast volume: 80 ml; Contrast route: INTRAVENOUS (IV); COMPARISON: CT ABDOMEN PELVIS WO 01/03/2024 12:27 PM FINDINGS: Pleural spaces: Moderate right pleural effusion partially visualized. Right basilar airspace density, may be atelectasis or pulmonary infarction. Pulmonary arteries: Acute pulmonary emboli bilaterally, with large embolism in the right main pulmonary artery extending to right upper, middle, and lower lobes. Segmental emboli in the arteries to the left lower lobe. Compatible with large embolism burden. Aorta: No aortic aneurysm. No aortic dissection. Celiac trunk and mesenteric arteries: Approximately 80% narrowing of the celiac artery ostium. Mesenteric arteries patent. Renal arteries: No occlusion or significant stenosis. Right iliac arteries: No occlusion or significant stenosis. Left iliac arteries: No occlusion or significant stenosis. Liver: No mass. Gallbladder and bile ducts: Cholelithiasis and moderate gallbladder distension. No gallbladder wall thickening. Common bile duct distended to 13 mm. Pancreas: Unremarkable. No mass. No ductal dilation. Spleen: Unremarkable. No splenomegaly. Adrenal glands: Unremarkable. No mass. Kidneys and ureters: Unremarkable. No solid mass. No hydronephrosis. Stomach and bowel: Unremarkable. No obstruction. No mucosal thickening. Appendix: No evidence of appendicitis. Intraperitoneal space: Mild pelvic ascites. Lymph nodes: Unremarkable. No enlarged lymph nodes. Urinary bladder: Unremarkable. No mass. Reproductive: Unremarkable as visualized. Bones/joints: No acute fracture. Right hip prosthesis. Soft tissues: Unremarkable. Other findings: RV/LV ratio measures 0.91. IMPRESSION: 1. Acute pulmonary emboli bilaterally, with large embolism in the right main pulmonary artery. Compatible with large embolism burden. 2. No CT evidence of acute GI hemorrhage. 3. Moderate right pleural effusion partially visualized. Right basilar airspace density, may be atelectasis or pulmonary infarction. 4. Cholelithiasis and moderate gallbladder distension. No gallbladder wall thickening. Common bile duct distended to 13 mm. 5. Approximately 80% narrowing of the celiac artery ostium. Mesenteric arteries patent. THIS REPORT CONTAINS FINDINGS THAT MAY BE CRITICAL TO PATIENT CARE. The findings were verbally communicated via telephone conference with Tomasz Sidhu at 10:18 AM EDT on 01/05/2024. The findings were acknowledged and understood. Dictated and Authenticated by: Jerica Still MD. Ordering:[facility] Thea Tolbert MD
[2024-01-05 10:31] LABS: ALT 16 U/L (14-59); AST 47 U/L (15-37); Albumin 1.3 g/dL (3.4-5.0); Alkaline Phosphatase 159 U/L (46-116); Anion Gap 9.4 mmol/L (3-11); BUN 30 mg/dL (7-18); Bilirubin, Total 0.4 mg/dL (0.2-1.0); CO2 20.6 mmol/L (21.0-32.0); CREATININE 1.7 mg/dL (0.55-1.02); Calcium 7.6 mg/dL (8.5-10.1); Chloride 110 mmol/L (98-107); Glucose 86 mg/dL (74-106); Potassium 3.6 mmol/L (3.5-5.1); Sodium 140 mmol/L (136-145); Total Protein 4.2 g/dL (6.4-8.2)
[2024-01-05 12:57] LABS: Lab Add On Test DONE
[2024-01-05 13:06] LABS: C-Reactive Protein 5.37 mg/dL (<or=0.5); Lipase 99 U/L (16-77)
[2024-01-05] MEDS: Heparin in 0.45% NaCl 25,000 UNIT/250 ML BAG 12 UNIT IV (14:07)
--- NOTE | 2024-01-05 14:07 | PGE_ITS ---
Date of Service Date of service: 01/05/24 Time of Service: 14:07 Assessment and Plan Assessment and plan (1) Celiac artery stenosis: Status: Acute (2) Cholelithiasis with choledocholithiasis: Status: Acute Assessment and plan: T nicola is nomral mild elevation of lipse hopefully pt will pass gallstone (3) Acute pulmonary embolism: Status: Acute Assessment and plan: heparinaztion (4) Psychoses: Status: Acute (5) Subendocardial ischemia: Status: Acute (6) PAF (paroxysmal atrial fibrillation): Status: Acute (7) Carotid atherosclerosis: Status: Acute (8) Aortic atherosclerosis: Status: Acute (9) Difficult intravenous access: Status: Acute (10) Hyperlipemia: Status: Acute (11) Type II diabetes mellitus: Status: Acute (12) Obesity: Status: Chronic (13) Dysphagia: Status: Acute (14) Chronic GERD: Status: Acute (15) Gallbladder sludge: Status: Acute Assessment and plan: if pt stable, consider cholecystomy tube. -reviewed care w/ Dr. Sidhu .paul 30 mins spent with the patient today. (16) Chronic liver disease: Status: Acute (17) Metabolic dysfunction-associated steatohepatitis (MASH): Status: Acute (18) Diverticulosis: Status: Acute (19) Stage 3b chronic kidney disease: Status: Acute (20) Acute UTI (urinary tract infection): Status: Acute (21) Chronic anemia: Status: Acute (22) History of poliomyelitis: Status: Acute (23) Candidiasis of perineum: Status: Acute (24) Fracture of humeral head, right, closed: Status: Acute (25) Chronic back pain: Status: Acute (26) CVA (cerebral vascular accident): Status: Chronic (27) Memory loss: Status: Acute (28) TBI (traumatic brain injury): Status: Acute (29) DJD (degenerative joint disease), lumbosacral: Status: Acute (30) Pleural effusion, right: Status: Acute (31) Pneumonia: Status: Acute (32) Sleep apnea, obstructive: Status: Chronic (33) Hx MRSA infection: Subjective Subjective Interval history since last seen: pt cannot give any hx per RN, pt was having severe abdominal pain earlier this am. CT was Obtained which does show b/i PE. Also R pleural eff She also has 80% occ of yaa celiac A. She may have been passing a gallstone or may have been having intermediate bowl ischemia. Currently she is not having any abdominal pain, no distention or peritonitis. Pt is difficult to asses. Anytime someone walks into the room she starts moaning and c/o pain where ever you touch her. Objective Last Vital Signs Temp 36.7 C 01/05/24 08:19 Pulse 79 01/05/24 08:19 Resp 19 01/05/24 08:19 BP 121/75 01/05/24 08:19 Pulse Ox 98 01/05/24 08:19 Laboratory Results - last 24 hr 01/04/24 01/05/24 01/05/24 10:10 06:18 07:04 WBC 4.81 RBC 3.13 L Hgb 8.9 L Hct 28.7 L MCV 92 MCH 28.4 MCHC 31.0 L RDW 16.2 H Plt Count 100 L MPV 10.0 Immature Gran % 1.0 Neutrophils % 84.6 Lymphocytes % 12.1 Monocytes % 2.1 Eosinophils % 0.2 Basophils % 0.0 Nucleated RBC % 0.4 H Absolute Neutrophils 4.07 Absolute Lymphocytes 0.58 L Absolute Monocytes 0.10 Absolute Eosinophils 0.01 Absolute Basophils 0.00 VBG pH VBG pCO2 VBG pO2 VBG HCO3 VBG Total CO2 VBG O2 Saturation VBG Base Excess VBG Lactate 2.8 H* Sodium 144 Potassium 3.7 Chloride 113 H Carbon Dioxide 19.7 L Anion Gap 11.3 H BUN 31 H Creatinine 1.6 H Est GFR (CKD-EPI 2020) 32.81 Glucose 100 Hemoglobin A1c 6.2 H Calcium 7.9 L Magnesium 1.9 Ferritin 655 H Total Bilirubin 0.5 AST 55 H ALT 16 Alkaline Phosphatase 188 H C-Reactive Protein 4.96 H 5.37 H Total Protein 5.1 L Albumin 1.7 L Amylase 48 62 Lipase 99 H Vitamin B12 768 Folate 2.1 L Procalcitonin 14.2 Add-On Test Request DONE DONE DONE 01/05/24 10:05 WBC RBC Hgb 7.7 L Hct 25.4 L MCV MCH MCHC RDW Plt Count MPV Immature Gran % Neutrophils % Lymphocytes % Monocytes % Eosinophils % Basophils % Nucleated RBC % Absolute Neutrophils Absolute Lymphocytes Absolute Monocytes Absolute Eosinophils Absolute Basophils VBG pH 7.29 L VBG pCO2 41 VBG pO2 49 VBG HCO3 20 L VBG Total CO2 19 L VBG O2 Saturation 81 VBG Base Excess -7 L VBG Lactate 3.5 H* Sodium 140 Potassium 3.6 Chloride 110 H Carbon Dioxide 20.6 L Anion Gap 9.4 BUN 30 H Creatinine 1.7 H Est GFR (CKD-EPI 2020) 30.50 Glucose 86 Hemoglobin A1c Calcium 7.6 L Magnesium Ferritin Total Bilirubin 0.4 AST 47 H ALT 16 Alkaline Phosphatase 159 H C-Reactive Protein Total Protein 4.2 L Albumin 1.3 L Amylase Lipase Vitamin B12 Folate Procalcitonin Add-On Test Request Time Spent with Patient Time Spent with Patient: 25-34 minutes Time was spent: preparing to see the patient(eg.review tests), obtaining and/or reviewing separately otained hiistory, ordering medications,tests, procedures, referring, communicating with other health tire care manager, indepentently interpreting results, counseling the patient and care coordination
[2024-01-05 14:24] LABS: PTT Activated 31.6 sec (23.6-32.8)
[2024-01-05] MEDS: DEXTROSE 5%-0.45% SALINE 1,000 ML 150 ML IV (16:41)
[2024-01-05 18:48] LABS: HCT 26.5 % (36.0-46.0); HGB 8.2 g/dL (11.2-15.7)
[2024-01-05] MEDS: Metoprolol 5 MG/5 ML VIAL IVP (20:01)
[2024-01-05 23:02] LABS: PTT Activated > 155.0 sec (23.6-32.8)
[2024-01-06] VITALS (7 sets, daily range): BP systolic 105–124; BP diastolic 69–78; PULSE 70–90; RESP 16–18; TEMP 35.2–36.4; O2SAT 94–100
[2024-01-06] MEDS: MORPHine 2 MG/ML SYR IVP ×5 (01:22→16:18)
[2024-01-06] MEDS: Metoprolol 5 MG/5 ML VIAL IVP ×3 (02:11→14:17)
[2024-01-06] MEDS: metroNIDAZOLE 500 MG/100 ML BAG 100 MG IVPB ×3 (04:08→16:16)
[2024-01-06 06:03] LABS: Abs Immature Grans 0.05 10^3/uL (0.0-0.06); Absolute Eosinophil Count 0.02 10^3/uL (0.0-0.7); Absolute Lymphocyte Count 0.62 10^3/uL (1.2-3.4); Absolute Monocyte Count 0.07 10^3/uL (0.1-0.8); Absolute Neutrophil Count 2.91 10^3/uL (1.2-6.7); Eosinophils % 0.5; HCT 26.2 % (36.0-46.0); HGB 8.2 g/dL (11.2-15.7); Immature Grans % 1.4; Lymphocytes % 16.9; MCH 28.8 pg (27.0-33.0); MCHC 31.3 % (32.0-36.0); MCV 92 fL (80-95); Monocytes % 1.9; Neutrophils % 79.3; RBC 2.85 10^6/uL (3.93-5.22); RDW 16.1 % (11.7-14.6); RDW-SD 54.3 fL; WBC 3.67 10^3/uL (4.4-10.8)
[2024-01-06] MEDS: DEXTROSE 5%-0.45% SALINE 1,000 ML 150 ML IV ×2 (06:07→14:27)
[2024-01-06] MEDS: cefTRIAXone 1 GM/50 ML BAG IVPB (06:10)
[2024-01-06 06:20] LABS: MPV 10.6 fL (8.0-11.0); Platelet Count 80 10^3/uL (130-400)
[2024-01-06 06:21] LABS: Diff Comment RBC Morph Reviewed; Poikilocytes 3+
[2024-01-06 06:36] LABS: Iron 77 ug/dL (50-170); Total Iron Binding Capacity 70 ug/dL (250-450); Transferrin Sat 110 % (15-50)
--- NOTE | 2024-01-06 07:00 | DI.US_ITS ---
Exam(s) US ABDOMEN LIMITED EXAM: US ABDOMEN LIMITED CLINICAL HISTORY: cholelithiasis, common bile duct dilatation TECHNIQUE: Ultrasound abdomen performed using standard protocol. COMPARISON: US POCUS EXAM from 01/05/[address] ABDOMEN PELVIS CTA from 01/05/2024 FINDINGS: There is perihepatic ascites noted. Liver is hyperechoic, indicating steatosis. LIVER: Liver is hyperechoic, indicating steatosis. There no discrete focal hepatic lesions identifie d. GALLBLADDER/BILIARY: There is prominent sludge in the gallbladder. This is more visible on ultrasoun d than on the prior CT scan. The small calculi seen on the dependent wall of the gallbladder on the recent CT scan are difficult to appreciate on ultrasound. The gallbladder wall is not edematous and there is no pericholecystic fluid. The common hepatic duct isdilated, measuring 11mm at the level of bibiana hepatis. PANCREAS: There is no evidence of pancreatic mass nor dilatation of the pancreatic duct. RIGHT KIDNEY:Not studied . IMPRESSION: 1. Prominent sludge evident in the gallbladder lumen and subtle nonshadowing densities which may be noncalcified gallstones. The gallbladder is moderately distended. The wall of the gallbladder is no t thickened. The common hepatic duct is dilated to 11 mm. 2. There is some ascites in the right upper quadrant. 3. Hepatic steatosis noted. There are no discrete focal hepatic lesions evident. DATA REPOSITORY:
[2024-01-06 07:08] LABS: ALT 22 U/L (14-59); AST 61 U/L (15-37); Albumin 1.4 g/dL (3.4-5.0); Alkaline Phosphatase 233 U/L (46-116); Anion Gap 9.9 mmol/L (3-11); BUN 21 mg/dL (7-18); Bilirubin, Total 0.4 mg/dL (0.2-1.0); CO2 22.1 mmol/L (21.0-32.0); CREATININE 1.5 mg/dL (0.55-1.02); Calcium 7.4 mg/dL (8.5-10.1); Chloride 107 mmol/L (98-107); Estimated GFR 35.45 (mL/min/1.73m2); Glucose 99 mg/dL (74-106); Potassium 3.3 mmol/L (3.5-5.1); Sodium 139 mmol/L (136-145); Total Protein 4.5 g/dL (6.4-8.2)
[2024-01-06 07:09] LABS: Ferritin 1271 ng/mL (8-252)
[2024-01-06 07:15] LABS: Lipase 49 U/L (16-77)
--- NOTE | 2024-01-06 07:26 | W.PALLCONSUL ---
Date of service: 01/06/24 Time of Service: 07:27 History of Present Illness History of Present Illness Chief Complaint: Mental status changes, PE, cholecystitis Narrative: I met with Blanka this morning. At that time she did not open her eyes but did moan the entire time. When I listen to her heart lungs and abdomen, she pushed me away from her abdomen. Blanka was admitted a couple of days ago and unfortunately has numerous problems. She was found to have PEs, sludge in her gallbladder with possible gallstones and increased CBD, moaned regularly, and was NPO. There were concerns about possible surgical intervention but due to her overall health status especially PE etc. this was not seen as possible. We also talked about a stent but family was very concerned that this would be difficult for Blanka. They said over and over again that she does not want to go to [facility]. They also stated that she could not undergo surgery because of her changes after surgery in the past I am meeting with daughter Dominique, Carmen on phone, and son Oleg. Repeatedly they stated that they did not want Blanka to be in pain, and they felt that she was in significant pain. Carmen stated strongly that she did not feel that Blanka would want more interventions and that she should advance to comfort care, treat her pain and anxiety, and allow peaceful . Both Carmen and Dominique stated that Blanka really was not that interested in living anymore. She had been talking to people recently and both Carmen and Dominique are understanding of people at the end stages of life many time reaching for and talking to people and relatives who have . They could tell me quite clearly all the things that were going on with Blanka. They all concurred that keeping her comfortable was the most important thing. They also stated that Blanka would not want to go through surgery and would not allow stent placement etc. they understand that without interventions for her gallbladder that she most likely would from the infection. Assessment and Plan Assessment and plan (1) Advanced care planning/counseling discussion: Status: Acute (2) Celiac artery stenosis: Status: Acute (3) Acute pulmonary embolism: Status: Acute Assessment and plan: I saw Blanka this AM and plan to see with family later today. I will call Oleg at [phone] and meet with him at 3 PM today Afternoon visit: After much discussion Carlos family felt that she would want comfort care. She would not want interventions for her gallbladder. She would prefer to be home if possible. And they strongly felt that she should have her pain better controlled. They were in favor of stopping the heparin drip and antibiotics as well as IV fluids. They also wanted a morphine drip to be started so that she could be more comfortable. Katherine DENNY, Marlene accounting manager controllerright of way manager and I all discussed this at length. Time spent with advanced care planning 1 hour 27 minutes. Katherine and I discussed orders at length. I did go back in and speak with Blanka. She did not respond but she appeared to listen as we talked about what was going to happen. Of note staff was relieved that Blanka would be getting better pain control. I also did speak with Carlos family in the parking lot after our visit. They were much more comfortable with their decision and family was assembling today and tomorrow to say their goodbyes to Blanka If Blanka should linger, then hospice with home care by Dominique would be the next step. I would expect that Blanka will be staying in the hospital for end-of-life care Review of Systems Narrative: Blanka moaned through much of my exam in the morning and also in our conversation this afternoon. When I asked her if she was in pain she did not answer me PFSH All Active Problems (Updated 01/06/24 @ 16:23 by Katherine Macias APRN) Comfort measures only status (Acute) PAF (paroxysmal atrial fibrillation) (Acute) Discharge planning issues (Acute) Advanced care planning/counseling discussion (Acute) Acute pulmonary embolism (Acute) Cholelithiasis with choledocholithiasis (Acute) Celiac artery stenosis (Acute) Biliary sludge determined by ultrasound (Acute) Gallstones (Acute) Candidiasis of perineum (Acute) Pneumonia (Acute) Fracture of humeral head, right, closed (Acute) Fx 09/28/23. 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) (Acute) Difficult intravenous access (Acute) Acute UTI (urinary tract infection) (Acute) Pleural effusion, right (Acute) Diverticulosis (Acute) History of back surgery (Acute) For tethered cord Aortic atherosclerosis (Acute) DJD (degenerative joint disease), lumbosacral (Acute) Psychoses (Acute) Type II diabetes mellitus (Acute) Vertigo (Acute) Chronic liver disease (Acute) Due to hepatitis History of poliomyelitis (Acute) Hx pulmonary embolism (Acute) Chronic GERD (Acute) TBI (traumatic brain injury) (Acute) Hyperlipemia (Acute) Chronic back pain (Acute) Chronic anemia (Acute) Stage 3b chronic kidney disease (Acute) Dysphagia (Acute) Obesity (Chronic) Sleep apnea, obstructive (Chronic) Memory loss (Acute) Non-smoker (Acute) Carotid atherosclerosis (Acute) CVA (cerebral vascular accident) (Chronic) x2 Gallbladder sludge (Acute) PAF (paroxysmal atrial fibrillation) (Acute) Dehydration (Acute) Hypokalemia (Acute) Elevated troponin level not due myocardial infarction (Acute) Abdominal pain, acute, right upper quadrant (Acute) Subendocardial ischemia (Acute) Urinary tract infection (Acute) Medical History (Updated 01/06/24 @ 16:23 by Katherine Macias APRN) Peptic ulcer disease Hypertension Chronic renal insufficiency Reactive airway disease Diabetes mellitus Hx of hepatitis Hx MRSA infection Surgical History (Updated 01/03/24 @ 22:41 by Theresa Loving DO) History of orthopedic surgery Patient has had many foot and ankle surgeries. Knee Replacement Hip Surgery EGD - MAC Colonoscopy - MAC Family History Mother Diabetes Small bowel infarction Father Lung cancer Thyroid disease Sister Myocardial infarction Brother Myocardial infarction Social History Smoking risk assessment performed?: No Housing: custodial Do you feel safe at home: Yes Exam Narrative Exam Narrative: 78-year-old woman who looks much older than her stated age. She did appear to listen during our conversations with her family. She did not reply to any questions. Her heart was regular. Lungs little cooperation and decreased air movement. Abdomen she did have bowel sounds, rebound, and appeared uncomfortable when I examined her abdomen. She does have a Conde in place. She has 1-2+ edema. Results Last Vital Signs Temp 97.5 F L 01/06/24 03:19 Pulse 70 01/06/24 03:19 Resp 16 01/06/24 03:19 BP 117/70 01/06/24 03:19 Pulse Ox 97 01/06/24 03:19 Laboratory Tests 01/04/24 01/05/24 01/06/24 10:10 10:05 05:30 Hct 30.8 L 25.4 L 26.2 L VBG Lactate 3.5 H* Potassium 3.3 L Creatinine 1.5 H Magnesium AST 61 H Alkaline Phosphatase 233 H Albumin 1.4 L Lipase 49 01/06/24 11:15 Hct VBG Lactate 2.2 H* Potassium Creatinine Magnesium 1.4 L AST Alkaline Phosphatase Albumin Lipase Urine Culture Final 01/06/24-923 Day 1 Result ISOLATES BELOW ISOLATE 1 COLONY COUNT 10,000 - 50,000 COLONIES/ML ISOLATE 1 APPEARANCE Mixed Gram Positive Patrick Day 2 Result ISOLATES BELOW ISOLATE 1 COLONY COUNT 10,000 - 50,000 COLONIES/ML ISOLATE 1 APPEARANCE Mixed Gram Positive Patrick Probable contaminated collection Organism 1 GRAM POSITIVE PATRICK,MIXED COLONY COUNT 10,000 - 50,000 COLONIES/ML ABD/PELVIS MPRESSION: 1. On this abdominal scan the main findings are actually on the uppermost images in the chest where there is a large embolus in the right main pulmonary artery and also pulmonary emboli evident in both lower lobe arteries. Can not exclude the possibly that there also emboli in the upper lobe arteries which are not included in the field of view here. 2. Right sided pleural effusion which appears partially loculated. 3. Cholelithiasis and moderate gallbladder distension but without gallbladder wall edema nor pericholecystic fluid. However, the CBD is dilated to 1.3 cm. There is no radiopaque calculus in the lower CBD. There is no pancreatic head mass. 4. There is a tight stenosis at the origin of the celiac artery off the aorta. Similar findings not seen at the SMA origin nor evidence of embolus within the SMA. However, there does appear to be significant plaque with significant stenosis at the origin the left renal artery. Both kidneys exhibit normal size. Conde catheter noted in the bladder. Right hip arthroplasty noted. ABD US GB sludge CBD dilitation Labs 01/06/24 05:30 01/06/24 05:30 Labs: Laboratory Results - last 24 hr 01/05/24 01/05/24 01/05/24 06:18 07:04 10:05 WBC RBC Hgb 7.7 L Hct 25.4 L MCV MCH MCHC RDW Plt Count MPV Immature Gran % Neutrophils % Lymphocytes % Monocytes % Eosinophils % Basophils % Nucleated RBC % Absolute Neutrophils Absolute Lymphocytes Absolute Monocytes Absolute Eosinophils Absolute Basophils RBC Morphology Poikilocytosis APTT VBG pH 7.29 L VBG pCO2 41 VBG pO2 49 VBG HCO3 20 L VBG Total CO2 19 L VBG O2 Saturation 81 VBG Base Excess -7 L VBG Lactate 3.5 H* Sodium 140 Potassium 3.6 Chloride 110 H Carbon Dioxide 20.6 L Anion Gap 9.4 BUN 30 H Creatinine 1.7 H Est GFR (CKD-EPI 2020) 30.50 Glucose 86 Calcium 7.6 L Iron TIBC Transferrin % Sat Ferritin Total Bilirubin 0.4 AST 47 H ALT 16 Alkaline Phosphatase 159 H C-Reactive Protein 5.37 H Total Protein 4.2 L Albumin 1.3 L Lipase 99 H Procalcitonin 14.2 Add-On Test Request DONE DONE Patient ABO/Rh Antibody Screen 01/05/24 01/05/24 01/05/24 14:00 14:15 18:41 WBC RBC Hgb 8.2 L Hct 26.5 L MCV MCH MCHC RDW Plt Count MPV Immature Gran % Neutrophils % Lymphocytes % Monocytes % Eosinophils % Basophils % Nucleated RBC % Absolute Neutrophils Absolute Lymphocytes Absolute Monocytes Absolute Eosinophils Absolute Basophils RBC Morphology Poikilocytosis APTT 31.6 VBG pH VBG pCO2 VBG pO2 VBG HCO3 VBG Total CO2 VBG O2 Saturation VBG Base Excess VBG Lactate Sodium Potassium Chloride Carbon Dioxide Anion Gap BUN Creatinine Est GFR (CKD-EPI 2020) Glucose Calcium Iron TIBC Transferrin % Sat Ferritin Total Bilirubin AST ALT Alkaline Phosphatase C-Reactive Protein Total Protein Albumin Lipase Procalcitonin Add-On Test Request Patient ABO/Rh B Negative Antibody Screen NEGATIVE 01/05/24 01/06/24 22:00 05:30 WBC 3.67 L RBC 2.85 L Hgb 8.2 L Hct 26.2 L MCV 92 MCH 28.8 MCHC 31.3 L RDW 16.1 H Plt Count 80 L MPV 10.6 Immature Gran % 1.4 Neutrophils % 79.3 Lymphocytes % 16.9 Monocytes % 1.9 Eosinophils % 0.5 Basophils % 0.0 Nucleated RBC % 0.0 Absolute Neutrophils 2.91 Absolute Lymphocytes 0.62 L Absolute Monocytes 0.07 L Absolute Eosinophils 0.02 Absolute Basophils 0.00 RBC Morphology See Below Poikilocytosis 3+ APTT > 155.0 H* Cancelled VBG pH VBG pCO2 VBG pO2 VBG HCO3 VBG Total CO2 VBG O2 Saturation VBG Base Excess VBG Lactate Sodium 139 Potassium 3.3 L Chloride 107 Carbon Dioxide 22.1 Anion Gap 9.9 BUN 21 H Creatinine 1.5 H Est GFR (CKD-EPI 2020) 35.45 Glucose 99 Calcium 7.4 L Iron 77 TIBC 70 L Transferrin % Sat 110 H Ferritin 1271 H Total Bilirubin 0.4 AST 61 H ALT 22 Alkaline Phosphatase 233 H C-Reactive Protein Total Protein 4.5 L Albumin 1.4 L Lipase 49 Procalcitonin Add-On Test Request Patient ABO/Rh Antibody Screen
[2024-01-06] MEDS: Normal Saline Flush 10 ML SYR IVP ×6 (07:43→20:40)
[2024-01-06] MEDS: Pantoprazole 40 MG VIAL IVP ×2 (07:43→20:40)
[2024-01-06] MEDS: Budesonide/Formoterol 160/4.5 6 GM 60 PUFF INH IH (07:50)
[2024-01-06 08:57] LABS: PTT Activated > 155.0 sec (23.6-32.8)
--- NOTE | 2024-01-06 09:13 | CMPROGNOTE_ITS ---
Date of service: 01/06/24 Time of Service: 09:14 Care Management Progress Note Progress Note Text Progress Note Text: S/O:Blanka was lying in bed when CM met with her. She was awake and alert and looked at CM when spoken to, but did not respond to questions or comments. Blanka continues to cry out in pain and is currently NPO. A Palliative meeting was held this afternoon with Dr. Jackson, Blanka's son Oleg ([facility]), her daughter Dominique and daughter Carmen (via phone) as well as Employment Consultant Marlene and HEALTH SERVICE WORKER Katherine. After a lengthy discussion, the family made the decision to transition Blanka to comfort care. She will likely remain at [facility] for end of life care, although going home on hospice is also a possibility. A: Blanka is a 78 year old woman admitted on 01/02 with Abdominal pain, elevated troponins P:Blanka will transition to comfort measures this afternoon. She will likely remain at [facility] for end of life care although it is possible she may go home on hospice. CM will follow and continue to support Blanka and her family and continue to assess for discharge needs. SDOH(Care Management) Screening Will the Patient Participate in the Screening?: Yes Do you worry about having a steady place to live?: yes In the past 12 months, have you had to go without electric, gas, oil or water in your home?: choose not to answer Have you or anyone in your house had to go without enough food to eat?: choose not to answer Has lack of transportation kept you from medical appointments or from doing things needed for daily living?: choose not to answer Has anyone in your support network made you feel unsafe for any reason?: choose not to answer Health Related Social Needs Health related social needs: housing instability, housed, with risk of homelessness([id number])
--- NOTE | 2024-01-06 09:59 | PGE_ITS ---
Date of Service Date of service: 01/06/24 Time of Service: 09:59 Assessment and Plan Assessment and plan (1) Comfort measures only status: Status: Acute Assessment and plan: Patient became BUSINESS DEVELOPMENT SPECIALIST after PM meeting including family members Palliative care , Marlene Senior CM and this provider Initiating BUSINESS DEVELOPMENT SPECIALIST orders and discontinue orders not supporting comfort. Morphine drip with titration to RASS -1 or comfort (2) Abdominal pain, acute, right upper quadrant: Status: Acute Assessment and plan: ABD US is positive for:See report -Prominent sludge evident in the gallbladder lumen ; may be non-calcified gallstones. The gallbladder is moderately distended. Common hepatic duct dil. to 11 mm. -There is some ascites in the right upper quadrant. -Hepatic steatosis noted. There are no discrete focal hepatic lesions eviden t. CTA abdomen pelvis :See report -Again large PE ub right main PA and both lower lobe arteries. -Gallbladder distension with small calculi, no calculi in lower CBD, CBD dillated at 1.3cm -No evidence ischemic bowel d/t thrombosis : Narrow stenosis at the origin of the right celiac artery off the aorta/ significant atherosclerosis it he origin of the left renal artery As previous discussion with providers the family was disinclined to proceed w/ any surgery when they were approached w/ possible acute GB disease. Continue Heparin drip Continue protonix Continue pain management LFt's in AM : ALK 233, AST 61 (3) Elevated troponin level not due myocardial infarction: Status: Acute Assessment and plan: Troponin ,max 152, was trending down and as per previous provider it was most likely likely type II demand ischemia, echo showed LVEF of 55-60% w/o structural or hemodynamically significant valvular/ wall motion abnormalities or RV dysfunction (4) Urinary tract infection: Status: Acute Assessment and plan: UTI was on rocephin but culture is negative. Qualifiers: Hematuria presence: with hematuria Urinary tract infection type: acute cystitis Qualified Code(s): N30.01 - Acute cystitis with hematuria (5) Hypokalemia: Status: Acute Assessment and plan: K 3.3 replacement ordered will continue to monitor, mag level added to AM labs BMP and Mg in AM (6) Dehydration: Status: Acute Assessment and plan: creatinine improved to 1.5, continue w/ iv fluids ; patient is unable to take PO Monitor I&O , trinh in place BMP in AM (7) PAF (paroxysmal atrial fibrillation): Status: Acute Assessment and plan: not currently on telemetry monitoring. rhythm sounded regular this morning however difficult to hear from her moaning. (8) Chronic renal insufficiency: Assessment and plan: Continue IVF, had a CTA and no PO Imrpoving Cr Qualifiers: Chronic kidney disease stage: stage 3 (moderate) Chronic kidney disease stage 3 subtype: stage 3b (GFR 30-44) Qualified Code(s): N18.32 - Chronic kidney disease, stage 3b (9) Reactive airway disease: Assessment and plan: No wheezing or O2 supplementation at this time Qualifiers: Asthma complication type: uncomplicated Asthma persistence: persistent Asthma severity: moderate Qualified Code(s): J45.40 - Moderate persistent asthma, uncomplicated (10) Diabetes mellitus: Assessment and plan: Continue glucs q6h or AC/HS when able to tolerate oral intake Qualifiers: Chronic kidney disease stage: stage 3 (moderate) Chronic kidney disease stage 3 subtype: stage 3b (GFR 30-44) Diabetes mellitus complication detail: with chronic kidney disease Diabetes mellitus complication status: with kidney complications Diabetes mellitus superintendent marine oil terminal insulin use: without fci use Diabetes mellitus type: type 2 Qualified Code(s): E11.22 - Type 2 diabetes mellitus with diabetic chronic kidney disease; N18.32 - Chronic kidney disease, stage 3b (11) PAF (paroxysmal atrial fibrillation): Status: Acute Assessment and plan: On metoprolol for afib rate control Heparin drip for PE (12) Hypertension: Assessment and plan: Was on HCTZ at home BP is soft at this time and patient came in with dehydration. Qualifiers: Hypertension type: primary hypertension Qualified Code(s): I10 - Essential (primary) hypertension (13) Candidiasis of perineum: Status: Acute Assessment and plan: Continue diflucan (14) Biliary sludge determined by ultrasound: Status: Acute Assessment and plan: Cholecystostomy tube placement pending family decision at palliative care meeting this PM.US did not how ever confirm this. will discuss with surgery If her abdominal pain is secondary to biliary process then urgent placement of the biliary tube would be indicated if intervention is desired by the family. On elsi Garcia (15) Discharge planning issues: Status: Acute Assessment and plan: CM to follow Palliative care consult ordered: First contact occurred. Meeting this PM to determine goals. [facility] [place] for [place] if needed as per Surgery and anesthesia After meeting at 3 PM family elected to choose BUSINESS DEVELOPMENT SPECIALIST discussed with Dr. Mariscal Subjective Subjective Patient reports: no new complaints, still having pain, voiding w/o difficulty (trinh) and bowel movement; denies tolerating liquids well, tolerating a regular diet, diarrhea, blood in stool, vomiting, shortness of breath or fever Exam Narrative Exam Narrative: Patient is moaning in pain despite morphine sulfate one hour ago. RASS 1 and uncomfortable Lungs:clear, diminished bases d/t inability to take deeper breaths on command Heart:regular rhythm, no murmur, positive radial and pedal ( weak) pulses Abdomen: bowel sounds present and distant, abdomen is not distended, soft with diffuse tenderness w/ guarding Extremities; trace non- pitting edema to ankles, generalized weakness Objective Last Vital Signs Temp 36.1 C L 01/06/24 07:38 Pulse 79 01/06/24 07:42 Resp 18 01/06/24 07:38 BP 122/78 01/06/24 07:42 Pulse Ox 100 01/06/24 07:38 Laboratory Results - last 24 hr 01/05/24 01/05/24 01/05/24 06:18 10:05 14:00 WBC RBC Hgb 7.7 L Hct 25.4 L MCV MCH MCHC RDW Plt Count MPV Immature Gran % Neutrophils % Lymphocytes % Monocytes % Eosinophils % Basophils % Nucleated RBC % Absolute Neutrophils Absolute Lymphocytes Absolute Monocytes Absolute Eosinophils Absolute Basophils RBC Morphology Poikilocytosis APTT 31.6 VBG pH 7.29 L VBG pCO2 41 VBG pO2 49 VBG HCO3 20 L VBG Total CO2 19 L VBG O2 Saturation 81 VBG Base Excess -7 L VBG Lactate 3.5 H* Sodium 140 Potassium 3.6 Chloride 110 H Carbon Dioxide 20.6 L Anion Gap 9.4 BUN 30 H Creatinine 1.7 H Est GFR (CKD-EPI 2020) 30.50 Glucose 86 Calcium 7.6 L Iron TIBC Transferrin % Sat Ferritin Total Bilirubin 0.4 AST 47 H ALT 16 Alkaline Phosphatase 159 H C-Reactive Protein 5.37 H Total Protein 4.2 L Albumin 1.3 L Lipase 99 H Add-On Test Request DONE Patient ABO/Rh Antibody Screen 01/05/24 01/05/24 01/05/24 14:15 18:41 22:00 WBC RBC Hgb 8.2 L Hct 26.5 L MCV MCH MCHC RDW Plt Count MPV Immature Gran % Neutrophils % Lymphocytes % Monocytes % Eosinophils % Basophils % Nucleated RBC % Absolute Neutrophils Absolute Lymphocytes Absolute Monocytes Absolute Eosinophils Absolute Basophils RBC Morphology Poikilocytosis APTT > 155.0 H* VBG pH VBG pCO2 VBG pO2 VBG HCO3 VBG Total CO2 VBG O2 Saturation VBG Base Excess VBG Lactate Sodium Potassium Chloride Carbon Dioxide Anion Gap BUN Creatinine Est GFR (CKD-EPI 2020) Glucose Calcium Iron TIBC Transferrin % Sat Ferritin Total Bilirubin AST ALT Alkaline Phosphatase C-Reactive Protein Total Protein Albumin Lipase Add-On Test Request Patient ABO/Rh B Negative Antibody Screen NEGATIVE 01/06/24 01/06/24 05:30 08:05 WBC 3.67 L RBC 2.85 L Hgb 8.2 L Hct 26.2 L MCV 92 MCH 28.8 MCHC 31.3 L RDW 16.1 H Plt Count 80 L MPV 10.6 Immature Gran % 1.4 Neutrophils % 79.3 Lymphocytes % 16.9 Monocytes % 1.9 Eosinophils % 0.5 Basophils % 0.0 Nucleated RBC % 0.0 Absolute Neutrophils 2.91 Absolute Lymphocytes 0.62 L Absolute Monocytes 0.07 L Absolute Eosinophils 0.02 Absolute Basophils 0.00 RBC Morphology See Below Poikilocytosis 3+ APTT Cancelled > 155.0 H* VBG pH VBG pCO2 VBG pO2 VBG HCO3 VBG Total CO2 VBG O2 Saturation VBG Base Excess VBG Lactate Sodium 139 Potassium 3.3 L Chloride 107 Carbon Dioxide 22.1 Anion Gap 9.9 BUN 21 H Creatinine 1.5 H Est GFR (CKD-EPI 2020) 35.45 Glucose 99 Calcium 7.4 L Iron 77 TIBC 70 L Transferrin % Sat 110 H Ferritin 1271 H Total Bilirubin 0.4 AST 61 H ALT 22 Alkaline Phosphatase 233 H C-Reactive Protein Total Protein 4.5 L Albumin 1.4 L Lipase 49 Add-On Test Request Patient ABO/Rh Antibody Screen Time Spent with Patient Time Spent with Patient: >50 minutes Time was spent: preparing to see the patient(eg.review tests), obtaining and/or reviewing separately otained hiistory, ordering medications,tests, procedures, referring, communicating with other health wound care coordinator, indepentently interpreting results, counseling the patient and care coordination
[2024-01-06] MEDS: POTASSIUM CHLORIDE 20 MEQ/100 ML BAG 50 MEQ IVPB ×2 (10:24→12:17)
[2024-01-06 11:25] LABS: Lactate 2.2 mmol/L (0.6-1.4)
[2024-01-06 13:11] LABS: Lab Add On Test DONE
[2024-01-06 13:18] LABS: Magnesium 1.4 mg/dL (1.8-2.4)
[2024-01-06] MEDS: ACETAMINOPHEN 1,000 MG/100 ML BTL 400 MG IVPB (14:27)
--- NOTE | 2024-01-06 15:12 | PGE_ITS ---
Date of Service Date of service: 01/06/24 Time of Service: 15:13 Assessment and Plan Assessment and plan (1) Cholelithiasis with choledocholithiasis: Status: Acute Assessment and plan: Although most of her liver function test are reassuring, the dilation of her common duct seen on her CT scan, as well as the ultrasound recent concern for biliary obstruction. Ideally, the therapeutic treatment for this would be ERCP with clearance of the duct, and likely stenting. However this is complicated by her large pulmonary emboli. I think acute mesenteric ischemia as a diagnosis is less likely given the patency of the SMA and FREDRICK. Although most patients will tolerate significant occlusion of the celiac axis, I suppose that could be the source of some of her abnormalities. If this is the case, I think the first line of therapy would be therapeutic anticoagulation (which she is already receiving from pulmonary embolism) and only advanced intervention by way of arterial stenting, or less likely an open operation which would be a massive undertaking in a woman with her comorbidities. Regardless, none of those intervention could be performed here as they would require quite advanced techniques only available at tertiary care center. I am certainly willing to help facilitate any transfer if that is aligned with the patient and her family's expectations, otherwise, I think palliative based treatments are also reasonable options. Subjective Subjective Interval history since last seen: Blanka is sleeping, but easily arousable this morning. She says she feels okay. She denies abdominal pain currently, but she also admits that she does not have any appetite. Exam GI Other: Her abdomen is soft and nondistended. She is not tender. Objective Last Vital Signs Temp 96.8 F L 01/06/24 14:07 Pulse 78 01/06/24 14:17 Resp 18 01/06/24 14:07 BP 124/74 01/06/24 14:17 Pulse Ox 94 01/06/24 14:07 Laboratory Results - last 24 hr 01/05/24 01/05/24 01/05/24 14:15 18:41 22:00 WBC RBC Hgb 8.2 L Hct 26.5 L MCV MCH MCHC RDW Plt Count MPV Immature Gran % Neutrophils % Lymphocytes % Monocytes % Eosinophils % Basophils % Nucleated RBC % Absolute Neutrophils Absolute Lymphocytes Absolute Monocytes Absolute Eosinophils Absolute Basophils RBC Morphology Poikilocytosis APTT > 155.0 H* VBG Lactate Sodium Potassium Chloride Carbon Dioxide Anion Gap BUN Creatinine Est GFR (CKD-EPI 2020) Glucose Calcium Magnesium Iron TIBC Transferrin % Sat Ferritin Total Bilirubin AST ALT Alkaline Phosphatase Total Protein Albumin Lipase Add-On Test Request Patient ABO/Rh B Negative Antibody Screen NEGATIVE 01/06/24 01/06/24 01/06/24 05:30 08:05 11:15 WBC 3.67 L RBC 2.85 L Hgb 8.2 L Hct 26.2 L MCV 92 MCH 28.8 MCHC 31.3 L RDW 16.1 H Plt Count 80 L MPV 10.6 Immature Gran % 1.4 Neutrophils % 79.3 Lymphocytes % 16.9 Monocytes % 1.9 Eosinophils % 0.5 Basophils % 0.0 Nucleated RBC % 0.0 Absolute Neutrophils 2.91 Absolute Lymphocytes 0.62 L Absolute Monocytes 0.07 L Absolute Eosinophils 0.02 Absolute Basophils 0.00 RBC Morphology See Below Poikilocytosis 3+ APTT Cancelled > 155.0 H* VBG Lactate 2.2 H* Sodium 139 Potassium 3.3 L Chloride 107 Carbon Dioxide 22.1 Anion Gap 9.9 BUN 21 H Creatinine 1.5 H Est GFR (CKD-EPI 2020) 35.45 Glucose 99 Calcium 7.4 L Magnesium 1.4 L Iron 77 TIBC 70 L Transferrin % Sat 110 H Ferritin 1271 H Total Bilirubin 0.4 AST 61 H ALT 22 Alkaline Phosphatase 233 H Total Protein 4.5 L Albumin 1.4 L Lipase 49 Add-On Test Request DONE Patient ABO/Rh Antibody Screen 01/06/24 01/06/24 14:00 20:00 WBC RBC Hgb Hct MCV MCH MCHC RDW Plt Count MPV Immature Gran % Neutrophils % Lymphocytes % Monocytes % Eosinophils % Basophils % Nucleated RBC % Absolute Neutrophils Absolute Lymphocytes Absolute Monocytes Absolute Eosinophils Absolute Basophils RBC Morphology Poikilocytosis APTT Cancelled Cancelled VBG Lactate Sodium Potassium Chloride Carbon Dioxide Anion Gap BUN Creatinine Est GFR (CKD-EPI 2020) Glucose Calcium Magnesium Iron TIBC Transferrin % Sat Ferritin Total Bilirubin AST ALT Alkaline Phosphatase Total Protein Albumin Lipase Add-On Test Request Patient ABO/Rh Antibody Screen Time Spent with Patient Time Spent with Patient: 25-34 minutes Time was spent: preparing to see the patient(eg.review tests), referring, communicating with other health hearing healthcare practitioner and indepentently interpreting results
[2024-01-06] MEDS: MORPHine 250 MG in Normal Saline 245 ML IV (16:43)
--- NOTE | 2024-01-06 17:54 | CHAPLAIN ---
I visited with Blanka's daughter late this afternoon. Blanka was sleeping. Her daughter was teary at times, but said her mom has told her that she's ready to go. Her daughter plans to spend the night and other family members will be arriving soon. We ordered a comfort cart for the room. Blanka's daughter shared some person history about Blanka and where she worked over the years. She has a sister and a brother who have been visiting. There is another brother who has not been in touch with Blanka in 20 years and Blanka's daughter said Blanka would not want to hear from him now. I let Blanka's daughter know that clay processing labourer is available 13/05.
[2024-01-07] MEDS: Pantoprazole 40 MG VIAL IVP ×2 (09:10→20:27)
[2024-01-07] MEDS: Normal Saline Flush 10 ML SYR IVP ×3 (09:10→20:58)
--- NOTE | 2024-01-07 10:04 | PDOC.CMPRO ---
Date of service: 01/07/24 Time of Service: 10:04 Care Management Progress Note Progress Note Text Progress Note Text: S/O:Blanka was lying in bed when CM met with her. She appeared comfortable although she is no longer responding. Blanka's daughter Gema spent the night with her and informed CM that she felt that her mother was much more comfortable with the morphine infusion. She was receiving 4mg/hr this morning but throughout the course of the day, it has been increased so that now she is receiving 7mg/hr. Beatris Pendleton composing room machinist, stopped by to visit with Blanka and her family. Blanka's granddaughter was present at the time and more relatives are expected later in the day. A: Blanka is a 78 year old woman admitted on 01/02 with Abdominal pain, elevated troponins P:Blanka transitioned to comfort measures yesterday. She will likely remain at [facility] for end of life care although it is possible she may go home on hospice. CM will follow and continue to support Blanka and her family and continue to assess for discharge needs. SDOH(Care Management) Screening Will the Patient Participate in the Screening?: Yes Do you worry about having a steady place to live?: yes In the past 12 months, have you had to go without electric, gas, oil or water in your home?: choose not to answer Have you or anyone in your house had to go without enough food to eat?: choose not to answer Has lack of transportation kept you from medical appointments or from doing things needed for daily living?: choose not to answer Has anyone in your support network made you feel unsafe for any reason?: choose not to answer Health Related Social Needs Health related social needs: housing instability, housed, with risk of homelessness(Z59.811)
--- NOTE | 2024-01-07 10:10 | PGE_ITS ---
Date of Service Date of service: 01/07/24 Time of Service: 10:10 Assessment and Plan Assessment and plan (1) Comfort measures only status: Status: Acute (2) Psychoses: Status: Acute (3) Subendocardial ischemia: Status: Acute (4) Elevated troponin level not due myocardial infarction: Status: Acute (5) PAF (paroxysmal atrial fibrillation): Status: Acute (6) PAF (paroxysmal atrial fibrillation): Status: Acute (7) Carotid atherosclerosis: Status: Acute (8) Aortic atherosclerosis: Status: Acute (9) Difficult intravenous access: Status: Acute (10) Celiac artery stenosis: Status: Acute (11) Hyperlipemia: Status: Acute (12) Hx pulmonary embolism: Status: Acute (13) Acute pulmonary embolism: Status: Acute (14) Type II diabetes mellitus: Status: Acute (15) Obesity: Status: Chronic (16) Dysphagia: Status: Acute (17) Chronic GERD: Status: Acute (18) Gallbladder sludge: Status: Acute (19) Chronic liver disease: Status: Acute (20) Metabolic dysfunction-associated steatohepatitis (MASH): Status: Acute (21) Gallstones: Status: Acute (22) Biliary sludge determined by ultrasound: Status: Acute (23) Cholelithiasis with choledocholithiasis: Status: Acute Assessment and plan: At this point the family has decided to proceed with comfort care measures only. Patient is a poor candidate for any procedures, and I think this is probably her best choice. Will reevaluate at your request (24) Diverticulosis: Status: Acute (25) Abdominal pain, acute, right upper quadrant: Status: Acute (26) Stage 3b chronic kidney disease: Status: Acute (27) Acute UTI (urinary tract infection): Status: Acute (28) Hx MRSA infection: (29) Hx of hepatitis: (30) Reactive airway disease: Qualifiers: Asthma severity: moderate Asthma persistence: persistent Asthma complication type: uncomplicated Qualified Code(s): J45.40 - Moderate persistent asthma, uncomplicated (31) Peptic ulcer disease: (32) Diabetes mellitus: Qualifiers: Diabetes mellitus type: type 2 Diabetes mellitus half-way insulin use: without terminal computer operator use Diabetes mellitus complication status: with kidney complications Diabetes mellitus complication detail: with chronic kidney disease Chronic kidney disease stage: stage 3 (moderate) Chronic kidney disease stage 3 subtype: stage 3b (GFR 30-44) Qualified Code(s): E11.22 - Type 2 diabetes mellitus with diabetic chronic kidney disease; N18.32 - Chronic kidney disease, stage 3b (33) Hypertension: Qualifiers: Hypertension type: primary hypertension Qualified Code(s): I10 - Essential (primary) hypertension (34) Urinary tract infection: Status: Acute Qualifiers: Urinary tract infection type: acute cystitis Hematuria presence: with hematuria Qualified Code(s): N30.01 - Acute cystitis with hematuria Objective Last Vital Signs Temp 36 C L 01/06/24 14:07 Pulse 78 01/06/24 14:17 Resp 18 01/06/24 14:07 BP 124/74 01/06/24 14:17 Pulse Ox 94 01/06/24 14:07 Laboratory Results - last 24 hr 01/06/24 01/06/24 01/06/24 11:15 12:31 14:00 APTT Cancelled VBG Lactate 2.2 H* Magnesium 1.4 L C-Reactive Protein Cancelled Add-On Test Request DONE 01/06/24 01/06/24 16:00 20:00 APTT Cancelled Cancelled VBG Lactate Magnesium C-Reactive Protein Add-On Test Request Time Spent with Patient Time Spent with Patient: <25 minutes Time was spent: preparing to see the patient(eg.review tests), obtaining and/or reviewing separately otained hiistory, ordering medications,tests, procedures, referring, communicating with other health physician primary care sports medicine, indepentently interpreting results, counseling the patient and care coordination
[2024-01-07 10:18] LABS: Transferrin 65 mg/dL (201-352)
--- NOTE | 2024-01-07 10:34 | W.NUTRFU ---
Date of service: 01/07/24 Time of Service: 10:35 Nutrition Note NOTE: noted pt orders for comfort care measures only as of yesterday. Pt currently ordered for clears - will provide as needed/requested. No aggressive nutrition intervention planned at this time. Will provide comfort/hospice cart to any visiting family with alerts from nursing. Time Spent in Nutritional Counseling and Treatment: 0
[2024-01-07] MEDS: Scopolamine 1 MG/3 DAYS PATCH TD (12:59)
[2024-01-07 13:05] VITALS: PULSE 106; TEMP 36.8
--- NOTE | 2024-01-07 16:34 | CHAPLAIN ---
I checked in with Blanka's granddaughter who was sitting with Blanka. Blanka is not responsive. Her granddaughter said Blanka seems to be comfortable. More family members will be returning later today.
--- NOTE | 2024-01-07 17:41 | W.PM.PROGNOT ---
Date of Service Date of service: 01/07/24 Time of Service: 13:00 Assessment and Plan Assessment and plan (1) Comfort measures only status: Status: Acute Assessment and plan: Continue COUNTER TOP ASSEMBLER interventions Continue Morphine drip with titration to RASS -1 or comfort Start PRN haldol for agitation as allergy to lorazepam is listed in chart and family in unable to state the reaction Discussed with Dr. Mariscal (2) Abdominal pain, acute, right upper quadrant: Status: Acute (3) Elevated troponin level not due myocardial infarction: Status: Acute (4) Urinary tract infection: Status: Acute Qualifiers: Urinary tract infection type: acute cystitis Hematuria presence: with hematuria Qualified Code(s): N30.01 - Acute cystitis with hematuria (5) Hypokalemia: Status: Acute (6) Dehydration: Status: Acute (7) PAF (paroxysmal atrial fibrillation): Status: Acute (8) Chronic renal insufficiency: Qualifiers: Chronic kidney disease stage: stage 3 (moderate) Chronic kidney disease stage 3 subtype: stage 3b (GFR 30-44) Qualified Code(s): N18.32 - Chronic kidney disease, stage 3b (9) Reactive airway disease: Qualifiers: Asthma severity: moderate Asthma persistence: persistent Asthma complication type: uncomplicated Qualified Code(s): J45.40 - Moderate persistent asthma, uncomplicated (10) Diabetes mellitus: Qualifiers: Diabetes mellitus type: type 2 Diabetes mellitus remote computer terminal operator insulin use: without remote computer terminal operator use Diabetes mellitus complication status: with kidney complications Diabetes mellitus complication detail: with chronic kidney disease Chronic kidney disease stage: stage 3 (moderate) Chronic kidney disease stage 3 subtype: stage 3b (GFR 30-44) Qualified Code(s): E11.22 - Type 2 diabetes mellitus with diabetic chronic kidney disease; N18.32 - Chronic kidney disease, stage 3b (11) PAF (paroxysmal atrial fibrillation): Status: Acute (12) Hypertension: Qualifiers: Hypertension type: primary hypertension Qualified Code(s): I10 - Essential (primary) hypertension (13) Candidiasis of perineum: Status: Acute (14) Biliary sludge determined by ultrasound: Status: Acute (15) Discharge planning issues: Status: Acute Subjective Subjective Patient reports: no new complaints and pain is less; denies diarrhea, nausea, vomiting, shortness of breath or fever Interval history since last seen: COUNTER TOP ASSEMBLER Exam Narrative Exam Narrative: Patient is comfortable, w/o S&S of acute distress, no mottling to legs. RASS -1; family at bedside Lungs:no tachypnea Heart:no JVD, no cyanosis Objective Last Vital Signs Temp 36.8 C 01/07/24 13:05 Pulse 106 H 01/07/24 13:05 Resp 18 01/06/24 14:07 BP 124/74 01/06/24 14:17 Pulse Ox 94 01/06/24 14:07 Laboratory Results - last 24 hr 01/06/24 05:30 Transferrin 65 L Time Spent with Patient Time Spent with Patient: >50 minutes Time was spent: preparing to see the patient(eg.review tests), obtaining and/or reviewing separately otained hiistory, ordering medications,tests, procedures, referring, communicating with other health home care attendant, indepentently interpreting results, counseling the patient and care coordination
[2024-01-07] MEDS: Haloperidol 5 MG/ML VIAL 2.5 MG IM/IV (20:57)
[2024-01-08] MEDS: Normal Saline Flush 10 ML SYR IVP (07:41)
[2024-01-08] MEDS: Haloperidol 5 MG/ML VIAL 2.5 MG IM/IV (07:41)
--- NOTE | 2024-01-08 08:18 | CMPROGNOTE_ITS ---
Date of service: 01/08/24 Time of Service: 08:18 Care Management Progress Note Progress Note Text Progress Note Text: S/O:Blanka remains on comfort care. She is no longer verbally responsive but appears comfortable. Her family has requested that efforts to reposition her be kept to a minimum as it seems to make her uncomfortable. Blanka's morphine infusion infusion is at 11mg/hr; it has only been increased by 2mg/hr today. A: Blanka is a 78 year old woman admitted on 01/02 with Abdominal pain, elevated troponins P:Blanka has transitioned to comfort measures. She will likely remain at [facility] for end of life care. will follow and continue to support Blanka and her family and continue to assess for discharge needs. SDOH(Care Management) Screening Will the Patient Participate in the Screening?: Yes Do you worry about having a steady place to live?: yes In the past 12 months, have you had to go without electric, gas, oil or water in your home?: choose not to answer Have you or anyone in your house had to go without enough food to eat?: choose not to answer Has lack of transportation kept you from medical appointments or from doing things needed for daily living?: choose not to answer Has anyone in your support network made you feel unsafe for any reason?: choose not to answer Health Related Social Needs Health related social needs: housing instability, housed, with risk of homelessness(Z59.811)
--- NOTE | 2024-01-08 14:17 | PGE_ITS ---
Date of Service Date of service: 01/08/24 Time of Service: 14:17 Assessment and Plan Assessment and plan (1) Comfort measures only status: Status: Acute Assessment and plan: Continue PRODUCT DEVELOPMENT ACTUARY interventions Continue Morphine drip with titration to RASS -1 or comfort Start PRN haldol for agitation Discussed with Dr. Mariscal (2) Abdominal pain, acute, right upper quadrant: Status: Acute (3) Elevated troponin level not due myocardial infarction: Status: Acute (4) Urinary tract infection: Status: Acute Qualifiers: Hematuria presence: with hematuria Urinary tract infection type: acute cystitis Qualified Code(s): N30.01 - Acute cystitis with hematuria (5) Hypokalemia: Status: Acute (6) Dehydration: Status: Acute (7) Chronic renal insufficiency: Qualifiers: Chronic kidney disease stage: stage 3 (moderate) Chronic kidney disease stage 3 subtype: stage 3b (GFR 30-44) Qualified Code(s): N18.32 - Chronic kidney disease, stage 3b (8) Diabetes mellitus: Qualifiers: Chronic kidney disease stage: stage 3 (moderate) Chronic kidney disease stage 3 subtype: stage 3b (GFR 30-44) Diabetes mellitus complication detail: with chronic kidney disease Diabetes mellitus complication status: with kidney complications Diabetes mellitus dedicated intermodal truck driver insulin use: without dedicated intermodal truck driver use Diabetes mellitus type: type 2 Qualified Code(s): E11.22 - Type 2 diabetes mellitus with diabetic chronic kidney disease; N18.32 - Chronic kidney disease, stage 3b (9) PAF (paroxysmal atrial fibrillation): Status: Acute (10) Hypertension: Qualifiers: Hypertension type: primary hypertension Qualified Code(s): I10 - Essential (primary) hypertension (11) Candidiasis of perineum: Status: Acute (12) Discharge planning issues: Status: Acute Subjective Subjective Interval history since last seen: resting comfortably, has remained non verbal, not taking po, trinh draining dark yellow urine. Exam Narrative Exam Narrative: elderly female, responsive to noxious stimuli only, head atraumatic, skin pink warm and dry, no mottling, trinh draining dark yellow urine. Objective Last Vital Signs Temp 36.8 C 01/07/24 13:05 Pulse 106 H 01/07/24 13:05 Resp 18 01/06/24 14:07 BP 124/74 01/06/24 14:17 Pulse Ox 94 01/06/24 14:07 Laboratory Results - last 24 hr 01/06/24 05:30 Transferrin 65 L Time Spent with Patient Time Spent with Patient: <25 minutes Time was spent: preparing to see the patient(eg.review tests)
--- NOTE | 2024-01-09 08:32 | PDOC.CMPRO ---
Date of service: 01/09/24 Time of Service: 08:32 Care Management Progress Note Progress Note Text Progress Note Text: S/O:Blanka remains on comfort care. She is no longer verbally responsive but appears comfortable. Her family has requested that efforts to reposition her be kept to a minimum as it seems to make her uncomfortable. Blanka's morphine infusion infusion is at 11mg/hr; it has only been increased by 2mg/hr today. A: Blanka is a 78 year old woman admitted on 01/02 with Abdominal pain, elevated troponins P:Blanka has transitioned to comfort measures. She will likely remain at [facility] for end of life care. will follow and continue to support Blanka and her family and continue to assess for discharge needs. SDOH(Care Management) Screening Will the Patient Participate in the Screening?: Yes Do you worry about having a steady place to live?: yes In the past 12 months, have you had to go without electric, gas, oil or water in your home?: choose not to answer Have you or anyone in your house had to go without enough food to eat?: choose not to answer Has lack of transportation kept you from medical appointments or from doing things needed for daily living?: choose not to answer Has anyone in your support network made you feel unsafe for any reason?: choose not to answer Health Related Social Needs Health related social needs: housing instability, housed, with risk of homelessness(Z59.811)
[2024-01-09] MEDS: Normal Saline Flush 10 ML SYR IVP ×2 (08:58→17:07)
[2024-01-09] MEDS: Haloperidol 5 MG/ML VIAL 2.5 MG IM/IV ×2 (08:58→17:06)
--- NOTE | 2024-01-09 13:54 | PDOC.CMPRO ---
Care Management Progress Note Progress Note Text Progress Note Text: S/O:Blanka remains on comfort measures. She is no longer verbally responsive and appeared agitated and uncomfortable earlier today. Blanka's morphine infusion infusion was at 13mg/hr but was increased to 15mg/hr which appears to be effective in making her more comfortable. A: Blanka is a 78 year old woman admitted on 01/02 with Abdominal pain, elevated troponins P:Blanka has transitioned to comfort measures. She will likely remain at [facility] for end of life care. CM will follow and continue to support Blanka and her family and continue to assess for discharge needs. SDOH(Care Management) Screening Will the Patient Participate in the Screening?: Yes Do you worry about having a steady place to live?: yes In the past 12 months, have you had to go without electric, gas, oil or water in your home?: choose not to answer Have you or anyone in your house had to go without enough food to eat?: choose not to answer Has lack of transportation kept you from medical appointments or from doing things needed for daily living?: choose not to answer Has anyone in your support network made you feel unsafe for any reason?: choose not to answer Health Related Social Needs Health related social needs: housing instability, housed, with risk of homelessness(Z59.021)
[2024-01-09] MEDS: diazePAM 10 MG/2 ML SYR 5 MG IV (21:52)
[2024-01-10] MEDS: Normal Saline Flush 10 ML SYR IVP ×3 (08:34→19:40)
--- NOTE | 2024-01-10 08:34 | PDOC.CMPRO ---
Date of service: 01/10/24 Time of Service: 08:34 Care Management Progress Note Progress Note Text Progress Note Text: S/O:Blanka remains unresponsive on comfort measures. Her morphine infusion is currently at 20mg/hr and she seems comfortable. Blanka has had family members with her around the clock who have shared that the nursing staff has been wonderful. They have found them to be very caring, compassionate and responsive to their needs. A: Blanka is a 78 year old woman admitted on 01/02 with Abdominal pain, elevated troponins P:Blanka has transitioned to comfort measures. She will likely remain at [facility] for end of life care. She has pre-paid arrangements with [facility] in [place]. will follow and continue to support Blanka and her family. SDOH(Care Management) Screening Will the Patient Participate in the Screening?: Yes Do you worry about having a steady place to live?: yes In the past 12 months, have you had to go without electric, gas, oil or water in your home?: choose not to answer Have you or anyone in your house had to go without enough food to eat?: choose not to answer Has lack of transportation kept you from medical appointments or from doing things needed for daily living?: choose not to answer Has anyone in your support network made you feel unsafe for any reason?: choose not to answer Health Related Social Needs Health related social needs: housing instability, housed, with risk of homelessness(Z59.811)
--- NOTE | 2024-01-10 10:24 | W.PM.PROGNOT ---
Date of Service Date of service: 01/09/24 Time of Service: 11:00 Assessment and Plan Assessment and plan (1) Comfort measures only status: Status: Acute Assessment and plan: Continue UPHOLSTERY REPAIRER interventions Continue Morphine drip with titration to RASS -1 or comfort Start PRN haldol for agitation Discussed with Dr. Mariscal (2) Abdominal pain, acute, right upper quadrant: Status: Acute (3) Elevated troponin level not due myocardial infarction: Status: Acute (4) Urinary tract infection: Status: Acute Qualifiers: Urinary tract infection type: acute cystitis Hematuria presence: with hematuria Qualified Code(s): N30.01 - Acute cystitis with hematuria (5) Hypokalemia: Status: Acute (6) Dehydration: Status: Acute (7) Chronic renal insufficiency: Qualifiers: Chronic kidney disease stage: stage 3 (moderate) Chronic kidney disease stage 3 subtype: stage 3b (GFR 30-44) Qualified Code(s): N18.32 - Chronic kidney disease, stage 3b (8) Diabetes mellitus: Qualifiers: Diabetes mellitus type: type 2 Diabetes mellitus group home insulin use: without group home use Diabetes mellitus complication status: with kidney complications Diabetes mellitus complication detail: with chronic kidney disease Chronic kidney disease stage: stage 3 (moderate) Chronic kidney disease stage 3 subtype: stage 3b (GFR 30-44) Qualified Code(s): E11.22 - Type 2 diabetes mellitus with diabetic chronic kidney disease; N18.32 - Chronic kidney disease, stage 3b (9) PAF (paroxysmal atrial fibrillation): Status: Acute (10) Hypertension: Qualifiers: Hypertension type: primary hypertension Qualified Code(s): I10 - Essential (primary) hypertension (11) Candidiasis of perineum: Status: Acute (12) Discharge planning issues: Status: Acute Subjective Subjective Interval history since last seen: remains comfortable, responsive to noxious stimuli only, Exam Narrative Exam Narrative: elderly female, responsive to noxious stimuli only, head atraumatic, skin pink warm and dry, no mottling, trinh draining dark yellow urine. Objective Last Vital Signs Temp 36.8 C 01/07/24 13:05 Pulse 106 H 01/07/24 13:05 Resp 18 01/06/24 14:07 BP 124/74 01/06/24 14:17 Pulse Ox 94 01/06/24 14:07 Time Spent with Patient Time Spent with Patient: <25 minutes Time was spent: preparing to see the patient(eg.review tests)
[2024-01-10] MEDS: Haloperidol 5 MG/ML VIAL 2.5 MG IM/IV ×2 (12:55→19:39)
--- NOTE | 2024-01-10 13:43 | CHAPLAIN ---
I checked in with Blanka's daughter today. Blanka remains unresponsive while on comfort measures.. She appeared uncomfortable yesterday and med adjustments were made. I will continue to visit.
[2024-01-10] MEDS: Pantoprazole 40 MG VIAL IVP (19:31)
[2024-01-11] MEDS: Pantoprazole 40 MG VIAL IVP (08:46)
[2024-01-11] MEDS: Normal Saline Flush 10 ML SYR IVP ×2 (08:47→19:59)
--- NOTE | 2024-01-11 09:09 | PGE_ITS ---
Date of Service Date of service: 01/11/24 Time of Service: 09:09 Assessment and Plan Assessment and plan (1) Comfort measures only status: Status: Acute Assessment and plan: -Continue ACTUARIAL ASSISTANT interventions -Continue Morphine drip with titration to RASS -1 or comfort -Start PRN haldol for agitation (2) Abdominal pain, acute, right upper quadrant: Status: Acute (3) Elevated troponin level not due myocardial infarction: Status: Acute (4) Urinary tract infection: Status: Acute Qualifiers: Urinary tract infection type: acute cystitis Hematuria presence: with hematuria Qualified Code(s): N30.01 - Acute cystitis with hematuria (5) Hypokalemia: Status: Acute (6) Dehydration: Status: Acute (7) Chronic renal insufficiency: Qualifiers: Chronic kidney disease stage: stage 3 (moderate) Chronic kidney disease stage 3 subtype: stage 3b (GFR 30-44) Qualified Code(s): N18.32 - Chronic kidney disease, stage 3b (8) Diabetes mellitus: Qualifiers: Diabetes mellitus type: type 2 Diabetes mellitus prison insulin use: without prison use Diabetes mellitus complication status: with kidney complications Diabetes mellitus complication detail: with chronic kidney disease Chronic kidney disease stage: stage 3 (moderate) Chronic kidney disease stage 3 subtype: stage 3b (GFR 30-44) Qualified Code(s): E11.22 - Type 2 diabetes mellitus with diabetic chronic kidney disease; N18.32 - Chronic kidney disease, stage 3b (9) PAF (paroxysmal atrial fibrillation): Status: Acute (10) Hypertension: Qualifiers: Hypertension type: primary hypertension Qualified Code(s): I10 - Essential (primary) hypertension (11) Candidiasis of perineum: Status: Acute Subjective Subjective Interval history since last seen: Patient appears comfortable and in no acute distress at this time. Exam Narrative Exam Narrative: elderly female, responsive to noxious stimuli only, head atraumatic, skin pink warm and dry, no mottling, trinh draining dark yellow urine. Objective Last Vital Signs Temp 98.2 F 01/07/24 13:05 Pulse 106 H 01/07/24 13:05 Resp 18 01/06/24 14:07 BP 124/74 01/06/24 14:17 Pulse Ox 94 01/06/24 14:07 Time Spent with Patient Time Spent with Patient: >50 minutes Time was spent: preparing to see the patient(eg.review tests), obtaining and/or reviewing separately otained hiistory, ordering medications,tests, procedures, referring, communicating with other health health care marketing specialist, indepentently interpreting results, counseling the patient and care coordination
[2024-01-11] MEDS: Scopolamine 1 MG/3 DAYS PATCH TD (15:44)
[2024-01-11] MEDS: diazePAM 10 MG/2 ML SYR 5 MG IV (17:48)
[2024-01-11] MEDS: Haloperidol 5 MG/ML VIAL 2.5 MG IM/IV (19:59)
[2024-01-11 21:12] VITALS: RESP 24
[2024-01-12] MEDS: diazePAM 10 MG/2 ML SYR IV ×4 (02:22→21:36)
[2024-01-12] MEDS: Normal Saline Flush 10 ML SYR IVP ×5 (02:23→21:36)
[2024-01-12 03:00] VITALS: RESP 26
[2024-01-12] MEDS: Pantoprazole 40 MG VIAL IVP (08:02)
[2024-01-12 08:24] VITALS: RESP 16
[2024-01-12 09:13] VITALS: TEMP 37
--- NOTE | 2024-01-12 09:41 | PGE_ITS ---
Date of Service Date of service: 01/12/24 Time of Service: 09:41 Assessment and Plan Assessment and plan (1) Comfort measures only status: Status: Acute Assessment and plan: -Continue SOFT CRAB SHEDDER interventions -Continue Morphine drip with titration to RASS -1 or comfort -Start PRN haldol for agitation (2) Abdominal pain, acute, right upper quadrant: Status: Acute (3) Elevated troponin level not due myocardial infarction: Status: Acute (4) Urinary tract infection: Status: Acute Qualifiers: Urinary tract infection type: acute cystitis Hematuria presence: with hematuria Qualified Code(s): N30.01 - Acute cystitis with hematuria (5) Hypokalemia: Status: Acute (6) Dehydration: Status: Acute (7) Chronic renal insufficiency: Qualifiers: Chronic kidney disease stage: stage 3 (moderate) Chronic kidney disease stage 3 subtype: stage 3b (GFR 30-44) Qualified Code(s): N18.32 - Chronic kidney disease, stage 3b (8) Diabetes mellitus: Qualifiers: Diabetes mellitus type: type 2 Diabetes mellitus fdc insulin use: without fdc use Diabetes mellitus complication status: with kidney complications Diabetes mellitus complication detail: with chronic kidney disease Chronic kidney disease stage: stage 3 (moderate) Chronic kidney disease stage 3 subtype: stage 3b (GFR 30-44) Qualified Code(s): E11.22 - Type 2 diabetes mellitus with diabetic chronic kidney disease; N18.32 - Chronic kidney disease, stage 3b (9) PAF (paroxysmal atrial fibrillation): Status: Acute (10) Hypertension: Qualifiers: Hypertension type: primary hypertension Qualified Code(s): I10 - Essential (primary) hypertension (11) Candidiasis of perineum: Status: Acute Subjective Subjective Interval history since last seen: Patient appears comfortable and in no acute distress at this time. Exam Narrative Exam Narrative: elderly female, responsive to noxious stimuli only, head atraumatic, skin pink warm and dry, no mottling, trinh draining dark yellow urine. Objective Last Vital Signs Temp 98.6 F 01/12/24 09:13 Pulse 106 H 01/07/24 13:05 Resp 16 01/12/24 08:24 BP 124/74 01/06/24 14:17 Pulse Ox 94 01/06/24 14:07 Time Spent with Patient Time Spent with Patient: >50 minutes Time was spent: preparing to see the patient(eg.review tests), obtaining and/or reviewing separately otained hiistory, ordering medications,tests, procedures, referring, communicating with other health physician primary care sports medicine, indepentently interpreting results, counseling the patient and care coordination
[2024-01-12] MEDS: Haloperidol 5 MG/ML VIAL 2.5 MG IM/IV (10:30)
--- NOTE | 2024-01-12 10:50 | NUR.NOTE ---
collaborating with family members present to titrate morphine dip and PRN meds to pt's comfort. Nursing Note:
--- NOTE | 2024-01-12 11:28 | NUR.NOTE ---
Increase in pt's moprhine drp and bolus given d/t pt still moaning with stimulation. Pt's face appears more relaxed after this last increase. Nursing Note:
--- NOTE | 2024-01-12 13:29 | NUR.NOTE ---
Pt continues to have a slight frown/grimace, increased morphine drip and gave bolus, will monitor for further titration. Nursing Note:
[2024-01-13] MEDS: Haloperidol 5 MG/ML VIAL 2.5 MG IM/IV ×2 (01:38→13:26)
[2024-01-13] MEDS: Normal Saline Flush 10 ML SYR IVP ×2 (08:03→20:30)
[2024-01-13] MEDS: Normal Saline 10 ML VIAL IJ (08:03)
[2024-01-13] MEDS: Pantoprazole 40 MG VIAL IVP ×2 (08:03→20:30)
[2024-01-13] MEDS: diazePAM 10 MG/2 ML SYR IV ×2 (08:08→15:20)
--- NOTE | 2024-01-13 08:41 | CMPROGNOTE_ITS ---
Date of service: 01/13/24 Time of Service: 08:41 Care Management Progress Note Progress Note Text Progress Note Text: S/O:Blanka remains unresponsive and is on a morphine infusion that is delivering 56mg/hr. She has had friends and family by her side almost continuously until today. Her daughter has been by her side since admission but chose to sleep at home last night and get some much needed rest. Blanka appears to be comfortable most of the time, however her nurse did medicate her twice with PRNs today. One time she was moaning and another time she was clenching the siderail. A: Blanka is a 78 year old woman admitted on 01/02 with Abdominal pain, elevated tr oponins P:Blanka has transitioned to comfort measures. She will likely remain at [facility] for end of life care. She has pre-paid arrangements with [facility] in [place]. will follow and continue to support Blanka and her family. SDOH(Care Management) Screening Will the Patient Participate in the Screening?: Yes Do you worry about having a steady place to live?: yes In the past 12 months, have you had to go without electric, gas, oil or water in your home?: choose not to answer Have you or anyone in your house had to go without enough food to eat?: choose not to answer Has lack of transportation kept you from medical appointments or from doing things needed for daily living?: choose not to answer Has anyone in your support network made you feel unsafe for any reason?: choose not to answer Health Related Social Needs Health related social needs: housing instability, housed, with risk of homelessness(Z59.811)
--- NOTE | 2024-01-13 15:06 | W.PM.PROGNOT ---
Date of Service Date of service: 01/13/24 Time of Service: 15:06 Assessment and Plan Assessment and plan (1) Comfort measures only status: Status: Acute Assessment and plan: -Continue INTERNAL MEDICINE PHYSICIAN ASSISTANT interventions -Continue Morphine drip with titration -PRN haldol for agitation discussed with DR Sidhu (2) Abdominal pain, acute, right upper quadrant: Status: Acute (3) Elevated troponin level not due myocardial infarction: Status: Acute (4) Urinary tract infection: Status: Acute Qualifiers: Urinary tract infection type: acute cystitis Hematuria presence: with hematuria Qualified Code(s): N30.01 - Acute cystitis with hematuria (5) Hypokalemia: Status: Acute (6) Dehydration: Status: Acute (7) Chronic renal insufficiency: Qualifiers: Chronic kidney disease stage: stage 3 (moderate) Chronic kidney disease stage 3 subtype: stage 3b (GFR 30-44) Qualified Code(s): N18.32 - Chronic kidney disease, stage 3b (8) Diabetes mellitus: Qualifiers: Diabetes mellitus type: type 2 Diabetes mellitus detention insulin use: without detention use Diabetes mellitus complication status: with kidney complications Diabetes mellitus complication detail: with chronic kidney disease Chronic kidney disease stage: stage 3 (moderate) Chronic kidney disease stage 3 subtype: stage 3b (GFR 30-44) Qualified Code(s): E11.22 - Type 2 diabetes mellitus with diabetic chronic kidney disease; N18.32 - Chronic kidney disease, stage 3b (9) PAF (paroxysmal atrial fibrillation): Status: Acute (10) Hypertension: Qualifiers: Hypertension type: primary hypertension Qualified Code(s): I10 - Essential (primary) hypertension (11) Candidiasis of perineum: Status: Acute Subjective Subjective Interval history since last seen: resting quietly, no distress noted. Exam Narrative Exam Narrative: elderly female, resting quietly in bed, respirations even and unlabored, skin pain warm and dry. trinh with dark concentrated urine. Objective Last Vital Signs Temp 37 C 01/12/24 09:13 Pulse 106 H 01/07/24 13:05 Resp 16 01/12/24 08:24 BP 124/74 01/06/24 14:17 Pulse Ox 94 01/06/24 14:07 Time Spent with Patient Time Spent with Patient: 35-49 minutes Time was spent: preparing to see the patient(eg.review tests)
[2024-01-13 15:27] VITALS: PULSE 93; RESP 12; O2SAT 94
[2024-01-14] MEDS: diazePAM 10 MG/2 ML SYR IV ×6 (02:40→23:33)
[2024-01-14] MEDS: Haloperidol 5 MG/ML VIAL 2.5 MG IM/IV ×4 (03:32→23:33)
[2024-01-14] MEDS: Normal Saline 10 ML VIAL IJ (07:56)
[2024-01-14] MEDS: Pantoprazole 40 MG VIAL IVP (07:56)
[2024-01-14] MEDS: Normal Saline Flush 10 ML SYR IVP (07:57)
--- NOTE | 2024-01-14 09:05 | CMPROGNOTE_ITS ---
Date of service: 01/14/24 Time of Service: 09:05 Care Management Progress Note Progress Note Text Progress Note Text: S/O:Blanka was lying in bed when CM met with her. She remains unresponsive however she seems more agitated and uncomfortable today. Her morphine infusion has been running at 60mg/hr and she is still requiring prn medications. GABBI met with her daughter Gema and Dr. Anthony from Palliative to discuss treatment options. Gema asked if it would be best to take Blanka home on hospice. She had discussed it with her siblings and they were of divided opinion. Oleg, her brother, has POA and is the HCA. He informed Gema that he feels that it would be best for Blanka to remain at [facility]. After a lengthy discussion, the decision was made to discontinue the morphine drip and initiate a hydromorphone infusion. The prn medications that she is receiving will now be scheduled with the goal of achieving a continuous level of comfort. The situation will be re-evaluated after a day or 2 and additional changes to the plan will be made as needed. A: Blanka is a 78 year old woman admitted on 01/02 with Abdominal pain, elevated troponins P:Blanka has transitioned to comfort measures. She will likely remain at [facility] for end of life care. She has pre-paid arrangements with [facility] in [place]. CM will follow and continue to support Blanka and her family. SDOH(Care Management) Screening Will the Patient Participate in the Screening?: Yes Do you worry about having a steady place to live?: yes In the past 12 months, have you had to go without electric, gas, oil or water in your home?: choose not to answer Have you or anyone in your house had to go without enough food to eat?: choose not to answer Has lack of transportation kept you from medical appointments or from doing things needed for daily living?: choose not to answer Has anyone in your support network made you feel unsafe for any reason?: choose not to answer Health Related Social Needs Health related social needs: housing instability, housed, with risk of homelessness(Z59.811)
[2024-01-14] MEDS: diazePAM 10 MG/2 ML SYR 5 MG IV (11:25)
--- NOTE | 2024-01-14 14:16 | W.PALPGNOTE ---
Date of service: 01/14/24 Time of Service: 14:17 Assessment and Plan Assessment and plan (1) Acute pulmonary embolism: Status: Acute Assessment and plan: Mrs. Almeida is a 78-year-old woman with dementia, acute pulmonary embolism, acute cholecystitis who has now been on comfort measures/end-of-life care for about 8 days. Family is concerned that she is not comfortable. I do note that her muscles are not relaxed and she is intermittently moaning. Given her CKD 3 with creatinine 1.6?1.7 range and cholecystitis with likely some liver dysfunction, recommend switching from IV morphine (which can produce toxic metabolites with renal and hepatic dysfunction) and switching to hydromorphone IV for pain control. Explained to daughter that fentanyl patches would not be adequate to cover pain at this point (MME/24 hours over 1400 mg at this point). I also think she would benefit from regularly scheduled benzodiazepine and Haldol to help with anxiety and terminal delirium. Case reviewed in person with Deborah Mckenna APRN. Also discussed with pharmacist. following recommendations made: -Switch to hydromorphone IV. Pharmacist is recommending starting at 9 mg/h with as needed 4 mg bolus every 15 minutes. Concentrated formulation will be used to minimize fluid given. -Patient has allergy to lorazepam listed, unclear what this was. Seems to be tolerating diazepam well. Scheduled diazepam 10 mg every 6 hours and use additional as needed -Haloperidol 2.5 mg IV every 6 hours scheduled. -Limit IV fluid flushes as much as possible. -Continue scopolamine patch. -Reevaluate in the morning and adjust dosing as needed to control symptoms of pain and agitation Gema would like to reevaluate how her mom is doing in the morning and may request discharge home with hospice. Supportive counseling with Dominique today. Education around prognosis, end-of-life symptoms, etc. Case management present for part of this visit. (2) Cholelithiasis with choledocholithiasis: Status: Acute (3) Advanced care planning/counseling discussion: Status: Acute (4) Comfort measures only status: Status: Acute (5) Counseling regarding advance care planning and goals of care: Status: Acute Subjective Subjective Interval history since last seen: Mrs. Almeida is a 78-year-old woman with a diagnosis of dementia who is a resident of [facility] since September 2023, who was admitted to [facility] 11 days ago with pulmonary embolism cholecystitis/cholangitis and new mental status changes. She was felt not to be a surgical candidate because of her significant comorbidities. Dr. Jackson met with family on January 05 to go over goals of care. 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 Family elected to transition to comfort measures only at that time. They had past discussions with the patient during which she said she would not want interventions for gallbladder or any further surgeries due to previous complications they did mention she would prefer to be at home for end-of-life if possible and would want her pain as well-controlled as possible. Daughter Dominique Quiroz requested that palliative care meet with her today to reevaluate her mother's current status and see if there is something that could be done to make her more comfortable. It is now over a week since patient was transition to comfort measures. She she is receiving as needed Haldol for any agitation. She is not getting any significant IV fluids. Dominique is concerned that she continues to moan and occasionally rise. She has received increasing doses of morphine, as needed diazepam IV and IV Haldol. She seems to be more comfortable briefly (for 10 to 20 minutes) after receiving as needed doses but then resumes moaning. She has had some small dark urine output. She does not appear to be dyspneic. Dominique is wondering if a different pain medication might work better, such as a fentanyl patch. Daughter also wonders if her mom is waiting to go home before passing away. Family had considered bringing her home on hospice, but it would be a challenge for them to care for her 13/05 for anything longer than a short period. They thought she was imminently dying last week. If her symptoms were better controlled, they would consider bringing her home in hospice for the last days of her life. Current meds: Diazepam 5-10mg IV Q3h (45 mg/24 h) Haldol 2.5 mg IV Q 6h ( 3 doses last 24 hours) Morphine IV @60mg/hour Acetaminophen IV (none in 24 hours Objective Last Vital Signs Temp 37 C 01/12/24 09:13 Pulse 93 H 01/13/24 15:27 Resp 12 01/13/24 15:27 BP 124/74 01/06/24 14:17 Pulse Ox 94 01/13/24 15:27 Objective Narrative Objective Narrative: Thin elderly woman, dusky complexion. Regular breathing. Carotid pulse about 100 and regularly regular. Occasional moaning. Facial muscles are relaxed. Flexing and extension at the elbow there is some resistance. No reaction to eyelid retraction. Small amount of dilute urine in the urine bag.
--- NOTE | 2024-01-14 17:54 | PGE_ITS ---
Date of Service Date of service: 01/14/24 Time of Service: 17:55 Assessment and Plan Assessment and plan (1) Comfort measures only status: Status: Acute Assessment and plan: -Continue DISTRICT ASSOCIATE JUDGE interventions and will reconsult palliative for medication recommendations now shes at 60 mg /hr of morphine in addition to prn valium and haldol with intermittent moaning -change morphine to Dilaudid -continue PRN haldol for agitation need to switch ativan from valium due to supply issue. discussed with DR Sidhu (2) Abdominal pain, acute, right upper quadrant: Status: Acute (3) Elevated troponin level not due myocardial infarction: Status: Acute (4) Urinary tract infection: Status: Acute Qualifiers: Urinary tract infection type: acute cystitis Hematuria presence: with hematuria Qualified Code(s): N30.01 - Acute cystitis with hematuria (5) Hypokalemia: Status: Acute (6) Dehydration: Status: Acute (7) Chronic renal insufficiency: Qualifiers: Chronic kidney disease stage: stage 3 (moderate) Chronic kidney disease stage 3 subtype: stage 3b (GFR 30-44) Qualified Code(s): N18.32 - Chronic kidney disease, stage 3b (8) Diabetes mellitus: Qualifiers: Diabetes mellitus type: type 2 Diabetes mellitus intermediate manager insulin use: without shelter use Diabetes mellitus complication status: with kidney complications Diabetes mellitus complication detail: with chronic kidney disease Chronic kidney disease stage: stage 3 (moderate) Chronic kidney disease stage 3 subtype: stage 3b (GFR 30-44) Qualified Code(s): E11.22 - Type 2 diabetes mellitus with diabetic chronic kidney disease; N18.32 - Chronic kidney disease, stage 3b (9) PAF (paroxysmal atrial fibrillation): Status: Acute (10) Hypertension: Qualifiers: Hypertension type: primary hypertension Qualified Code(s): I10 - Essential (primary) hypertension (11) Candidiasis of perineum: Status: Acute Subjective Subjective Interval history since last seen: frequent moaning with reposition changes reported. trinh still draining urine, dark yellow. Exam Narrative Exam Narrative: elderly female, resting quietly in bed, respirations even and unlabored, skin pain warm and dry. trinh with dark concentrated urine. Objective Last Vital Signs Temp 37 C 01/12/24 09:13 Pulse 93 H 01/13/24 15:27 Resp 12 01/13/24 15:27 BP 124/74 01/06/24 14:17 Pulse Ox 94 01/13/24 15:27 Time Spent with Patient Time Spent with Patient: 35-49 minutes Time was spent: preparing to see the patient(eg.review tests), ordering medications,tests, procedures and referring, communicating with other health healthcare associate
[2024-01-15] MEDS: diazePAM 10 MG/2 ML SYR IV ×3 (03:07→08:45)
[2024-01-15] MEDS: Haloperidol 5 MG/ML VIAL 2.5 MG IM/IV (05:28)
[2024-01-15] MEDS: Normal Saline Flush 10 ML SYR IVP ×2 (09:09→11:15)
--- NOTE | 2024-01-15 09:40 | CMPROGNOTE_ITS ---
Date of service: 01/15/24 Time of Service: 09:40 Care Management Progress Note Progress Note Text Progress Note Text: S/O:Blanka was lying in bed when CM met with her. She remains unresponsive but appears more comfortable. She is now on a Dilaudid drip at 15 mg/hr which appears to be more effective than the morphine. CM visited with Blanka's family and they verbalized that they feel she is less restless and more peaceful. They also expressed profound gratitude for the care their mother is receiving and the kindness extended to all of them. A: Blanka is a 78 year old woman admitted on 01/02 with Abdominal pain, elevated troponins P:Blanka has transitioned to comfort measures. She will likely remain at [facility] for end of life care. She has pre-paid arrangements with [facility] in [place]. CM will follow and continue to support Blanka and her family. SDOH(Care Management) Screening Will the Patient Participate in the Screening?: Yes Do you worry about having a steady place to live?: yes In the past 12 months, have you had to go without electric, gas, oil or water in your home?: choose not to answer Have you or anyone in your house had to go without enough food to eat?: choose not to answer Has lack of transportation kept you from medical appointments or from doing things needed for daily living?: choose not to answer Has anyone in your support network made you feel unsafe for any reason?: choose not to answer Health Related Social Needs Health related social needs: housing instability, housed, with risk of homelessness(Z59.811)
[2024-01-15] MEDS: Scopolamine 1 MG/3 DAYS PATCH TD (10:30)
[2024-01-15] MEDS: Normal Saline 10 ML VIAL IJ (11:15)
[2024-01-15] MEDS: LORazepam 2 MG/ML VIAL IVP ×2 (11:15→11:56)
[2024-01-15] MEDS: Haloperidol 5 MG/ML VIAL IM/IV ×2 (11:30→17:13)
--- NOTE | 2024-01-15 14:38 | CHAPLAIN ---
I visited this morning before family arrived. Blanka is not responsive, breathing shallowly. I will continue to visit.
[2024-01-16] MEDS: Haloperidol 5 MG/ML VIAL IM/IV ×3 (05:31→18:12)
[2024-01-16] MEDS: Normal Saline 10 ML VIAL IJ (05:33)
[2024-01-16] MEDS: HYDROmorphone 2 MG/ML SYR 4 MG IVP (07:33)
[2024-01-16] MEDS: Normal Saline Flush 10 ML SYR IVP (07:35)
--- NOTE | 2024-01-16 09:49 | CMPROGNOTE_ITS ---
Date of service: 01/16/24 Care Management Progress Note Progress Note Text Progress Note Text: S/O: Blanka remains unresponsive and uncomfortable. CM was meeting with son Oleg. Oleg had questions about insurance coverage. CM checked with CM medical claims assistant who clarified there is coverage through [employer] until 01/21/24 and JOSE DAVID confirmed LTC active at this time. Per request after a phone call with Gema and a conversation with Oleg, CM messaged Palliative Care regarding having a consult where both children can be present. CM following. A: Blanka is a 78 year old woman admitted on 01/02 with Abdominal pain, elevated troponins P:Blanka has transitioned to comfort measures. She will likely remain at [facility] for end of life care. She has pre-paid arrangements with [facility] in [place]. CM will follow and continue to support Blanka and her family. SDOH(Care Management) Screening Will the Patient Participate in the Screening?: Yes Do you worry about having a steady place to live?: yes In the past 12 months, have you had to go without electric, gas, oil or water in your home?: choose not to answer Have you or anyone in your house had to go without enough food to eat?: choose not to answer Has lack of transportation kept you from medical appointments or from doing things needed for daily living?: choose not to answer Has anyone in your support network made you feel unsafe for any reason?: choose not to answer Health Related Social Needs Health related social needs: housing instability, housed, with risk of homelessness(Z59.811)
--- NOTE | 2024-01-16 11:45 | W.PM.PROGNOT ---
Date of Service Date of service: 01/15/24 Time of Service: 11:45 Assessment and Plan Assessment and plan (1) Comfort measures only status: Status: Acute Assessment and plan: -Continue DIRECTOR HYDROGEN STORAGE ENGINEERING interventions -changed morphine to Dilaudid with titration as needed. -continue PRN haldol for agitation, increased dose need to switch ativan from valium due to supply issue, continuous drip started discussed with DR Sidhu (2) Abdominal pain, acute, right upper quadrant: Status: Acute (3) Elevated troponin level not due myocardial infarction: Status: Acute (4) Urinary tract infection: Status: Acute Qualifiers: Hematuria presence: with hematuria Urinary tract infection type: acute cystitis Qualified Code(s): N30.01 - Acute cystitis with hematuria (5) Hypokalemia: Status: Acute (6) Dehydration: Status: Acute (7) Chronic renal insufficiency: Qualifiers: Chronic kidney disease stage: stage 3 (moderate) Chronic kidney disease stage 3 subtype: stage 3b (GFR 30-44) Qualified Code(s): N18.32 - Chronic kidney disease, stage 3b (8) Diabetes mellitus: Qualifiers: Chronic kidney disease stage: stage 3 (moderate) Chronic kidney disease stage 3 subtype: stage 3b (GFR 30-44) Diabetes mellitus complication detail: with chronic kidney disease Diabetes mellitus complication status: with kidney complications Diabetes mellitus assisted insulin use: without remote computer terminal operator use Diabetes mellitus type: type 2 Qualified Code(s): E11.22 - Type 2 diabetes mellitus with diabetic chronic kidney disease; N18.32 - Chronic kidney disease, stage 3b (9) PAF (paroxysmal atrial fibrillation): Status: Acute (10) Hypertension: Qualifiers: Hypertension type: primary hypertension Qualified Code(s): I10 - Essential (primary) hypertension (11) Candidiasis of perineum: Status: Acute Subjective Subjective Interval history since last seen: continues to Objective Last Vital Signs Temp 37 C 01/12/24 09:13 Pulse 93 H 01/13/24 15:27 Resp 12 01/13/24 15:27 BP 124/74 01/06/24 14:17 Pulse Ox 94 01/13/24 15:27 Time Spent with Patient Time Spent with Patient: 35-49 minutes Time was spent: preparing to see the patient(eg.review tests), ordering medications,tests, procedures, referring, communicating with other health care mgr (palliative consultation with medication changes) and indepentently interpreting results
--- NOTE | 2024-01-16 11:50 | W.PM.PROGNOT ---
Date of Service Date of service: 01/16/24 Time of Service: 11:50 Assessment and Plan Assessment and plan (1) Comfort measures only status: Status: Acute Assessment and plan: -Continue FUR BLOWING MACHINE ATTENDANT interventions dilaudid drip with adjustment as needed. -continue PRN haldol for agitation ativan infusion discussed with DR Sidhu (2) Abdominal pain, acute, right upper quadrant: Status: Acute (3) Elevated troponin level not due myocardial infarction: Status: Acute (4) Urinary tract infection: Status: Acute Qualifiers: Hematuria presence: with hematuria Urinary tract infection type: acute cystitis Qualified Code(s): N30.01 - Acute cystitis with hematuria (5) Hypokalemia: Status: Acute (6) Dehydration: Status: Acute (7) Chronic renal insufficiency: Qualifiers: Chronic kidney disease stage: stage 3 (moderate) Chronic kidney disease stage 3 subtype: stage 3b (GFR 30-44) Qualified Code(s): N18.32 - Chronic kidney disease, stage 3b (8) Diabetes mellitus: Qualifiers: Chronic kidney disease stage: stage 3 (moderate) Chronic kidney disease stage 3 subtype: stage 3b (GFR 30-44) Diabetes mellitus complication detail: with chronic kidney disease Diabetes mellitus complication status: with kidney complications Diabetes mellitus half-way insulin use: without half-way use Diabetes mellitus type: type 2 Qualified Code(s): E11.22 - Type 2 diabetes mellitus with diabetic chronic kidney disease; N18.32 - Chronic kidney disease, stage 3b (9) PAF (paroxysmal atrial fibrillation): Status: Acute (10) Hypertension: Qualifiers: Hypertension type: primary hypertension Qualified Code(s): I10 - Essential (primary) hypertension (11) Candidiasis of perineum: Status: Acute Objective Last Vital Signs Temp 37 C 01/12/24 09:13 Pulse 93 H 01/13/24 15:27 Resp 12 01/13/24 15:27 BP 124/74 01/06/24 14:17 Pulse Ox 94 01/13/24 15:27 Time Spent with Patient Time Spent with Patient: 25-34 minutes Time was spent: preparing to see the patient(eg.review tests) and ordering medications,tests, procedures
--- NOTE | 2024-01-16 15:34 | CHAPLAIN ---
Blanka has been here nearly two weeks, and been on comfort measures for most of that time. Family continues to visit and staff continues to support family. I check in a couple of times a day. Yesterday, Blanka's daughter said she's getting close.
[2024-01-16] MEDS: Scopolamine 1 MG/3 DAYS PATCH TD (17:27)
[2024-01-17] MEDS: Haloperidol 5 MG/ML VIAL IM/IV ×5 (01:00→21:30)
--- NOTE | 2024-01-17 11:04 | W.PM.PROGNOT ---
Date of Service Date of service: 01/17/24 Time of Service: 11:04 Assessment and Plan Assessment and plan (1) Comfort measures only status: Status: Acute Assessment and plan: -Continue OPTICAL BRIGHTENER MAKER HELPER interventions dilaudid drip at 31 mg/hr, pharmacy consulted on saturation of opioids receptors causing opioid-induced hyperalgesia; might need to adjust rate as needed, rotate opioids or add non-opioid analgesics. Lorazepam infusion titrated up for RASS -1, patient is moaning and frowning at this time -Considering palliative care consult for further recommendations if no improvement this PM - PRN haldol for agitation discussed with DR Sidhu (2) Abdominal pain, acute, right upper quadrant: Status: Acute (3) Elevated troponin level not due myocardial infarction: Status: Acute (4) Urinary tract infection: Status: Acute Qualifiers: Hematuria presence: with hematuria Urinary tract infection type: acute cystitis Qualified Code(s): N30.01 - Acute cystitis with hematuria (5) Hypokalemia: Status: Acute (6) Dehydration: Status: Acute (7) Chronic renal insufficiency: Qualifiers: Chronic kidney disease stage: stage 3 (moderate) Chronic kidney disease stage 3 subtype: stage 3b (GFR 30-44) Qualified Code(s): N18.32 - Chronic kidney disease, stage 3b (8) Diabetes mellitus: Qualifiers: Chronic kidney disease stage: stage 3 (moderate) Chronic kidney disease stage 3 subtype: stage 3b (GFR 30-44) Diabetes mellitus complication detail: with chronic kidney disease Diabetes mellitus complication status: with kidney complications Diabetes mellitus intermodal customer service insulin use: without detention use Diabetes mellitus type: type 2 Qualified Code(s): E11.22 - Type 2 diabetes mellitus with diabetic chronic kidney disease; N18.32 - Chronic kidney disease, stage 3b (9) PAF (paroxysmal atrial fibrillation): Status: Acute (10) Hypertension: Qualifiers: Hypertension type: primary hypertension Qualified Code(s): I10 - Essential (primary) hypertension (11) Candidiasis of perineum: Status: Acute Subjective Subjective Interval history since last seen: Patient is on OPTICAL BRIGHTENER MAKER HELPER. RN reported that patient was uncomfortable and agitated on hydromorphone Lorazepam drips. Family at bedside. Exam Narrative Exam Narrative: Frail, ederly on OPTICAL BRIGHTENER MAKER HELPER, moaning and frowning during exam Clear lungs anteriorly S1-S2, no murmur, tachycardia HR in the 120's Objective Last Vital Signs Temp 37 C 01/12/24 09:13 Pulse 93 H 01/13/24 15:27 Resp 12 01/13/24 15:27 BP 124/74 01/06/24 14:17 Pulse Ox 94 01/13/24 15:27 Time Spent with Patient Time Spent with Patient: >50 minutes Time was spent: preparing to see the patient(eg.review tests), obtaining and/or reviewing separately otained hiistory, ordering medications,tests, procedures, referring, communicating with other health patient care director, indepentently interpreting results, counseling the patient and care coordination
[2024-01-17] MEDS: Normal Saline Flush 10 ML SYR IVP ×2 (12:52→18:16)
--- NOTE | 2024-01-17 15:58 | PDOC.CMPRO ---
Date of service: 01/17/24 Time of Service: 15:58 Care Management Progress Note Progress Note Text Progress Note Text: S/O:Blanka was lying in bed when CM met with her. She remains unresponsive but appears more comfortable. She is now on a Dilaudid drip at 31 mg/hr. Palliative Care is planning to meet with the family this afternoon between 3 and 4 pm. While the family has nothing but praise for the care and compassion of the staff with Blanka, it has been very difficult for them to watch her linger. A: Blanka is a 78 year old woman admitted on 01/02 with Abdominal pain, elevated troponins P:Blakna has transitioned to comfort measures. She will likely remain at [facility] for end of life care. She has pre-paid arrangements with [facility] in [place]. CM will follow and continue to support Blanka and her family. SDOH(Care Management) Screening Will the Patient Participate in the Screening?: Yes Do you worry about having a steady place to live?: yes In the past 12 months, have you had to go without electric, gas, oil or water in your home?: choose not to answer Have you or anyone in your house had to go without enough food to eat?: choose not to answer Has lack of transportation kept you from medical appointments or from doing things needed for daily living?: choose not to answer Has anyone in your support network made you feel unsafe for any reason?: choose not to answer Health Related Social Needs Health related social needs: housing instability, housed, with risk of homelessness(Z59.811)
--- NOTE | 2024-01-17 16:03 | CHAPLAIN ---
Blanka remains unresponsive and is on a drip for comfort measures. Family has said they believed she is uncomfortable and medical staff are making adjustments to her pain meds.
--- NOTE | 2024-01-17 16:10 | W.PALPGNOTE ---
Date of service: 01/17/24 Time of Service: 16:10 Assessment and Plan Assessment and plan (1) Comfort measures only status: Status: Acute Assessment and plan: Blanka has been on comfort measures status for almost 2 weeks. She is terminally ill, with continued discomfort despite being on maximal doses of hydromorphone and lorazepam. Her family is requesting palliative sedation. Dr. Garrett will see her tomorrow after all attempts are made to keep her comfortable. If she is still alive and uncomfortable, they will proceed with palliative sedation. (2) Dying care: Status: Acute (3) Acute pulmonary embolism: Status: Acute Assessment and plan: One of the acute events leading to her impending (4) Cholelithiasis with choledocholithiasis: Status: Acute Assessment and plan: Not a surgical candidate. Another event leading up to her . Subjective Subjective Interval history since last seen: Blanka was seen in her hospital room with several family members present. She has been on comfort focused care for several days and has not had anything by mouth for about 2 weeks. She had some IVF initially but that has been stopped for about 1 1/2 weeks. She is on a hydromorphone pump via IV at 31 mg/hr. She is receiving boluses PRN and prior to care. She appears to have discomfort despite this. She is grimacing and moaning at times. She is also on a lorazepam drip, recently increased to 5 mg/hr. She is getting PRN haldol as well. Her children do not thinks she is comfortable despite all of these interventions. They are questioning palliative sedation. Discussed with Dr. Grarett. Her pump can still be increased, Dr. Garrett would prefer that the pump dose is maxed out prior to initiation of Palliative sedation. Dr. Garrett will come in tomorrow after every attempt has been made to get/keep her comfortable. If she remains uncomfortable, her family would like to pursue palliative sedation. They will be present tomorrow to discuss with Dr. Garrett. Exam Narrative Exam Narrative: General: Frail, elderly woman, lying in bed, moaning on and off, with occasional furrowed brows/grimacing. skin is pale/mims. HEENT: atraumatic, mm dry. Cardiovascular: tachycardic. Respiratory: Clear lungs anteriorly, no observed apnea GI: soft, nondistended. : trinh in place with edwin colored urine drainging. Extremities: she did not move during the visit except when she was touched, she reacted to the touches, her family saw this as discomfort. Objective Last Vital Signs Temp 37 C 01/12/24 09:13 Pulse 93 H 01/13/24 15:27 Resp 12 01/13/24 15:27 BP 124/74 01/06/24 14:17 Pulse Ox 94 01/13/24 15:27
[2024-01-18] MEDS: Haloperidol 5 MG/ML VIAL IM/IV ×3 (01:11→08:05)
[2024-01-18] MEDS: Normal Saline Flush 10 ML SYR IVP (08:06)
--- NOTE | 2024-01-18 11:23 | W.PALPGNOTE ---
Date of service: 01/18/24 Time of Service: 11:00 Assessment and Plan Assessment and plan (1) Comfort measures only status: Status: Acute Assessment and plan: Family has met with several members of the palliative care team. Blanka has been on comfort measures status for almost 2 weeks. She is terminally ill, with continued discomfort despite being on maximal doses of hydromorphone and lorazepam. Given this, the document for palliative sedation was reviewed and signed by her son Oleg, who is her health care agent. He provided [facility] with documentation of this. I explained to family that she will start on propofol per palliative sedation protocol. Note that there is no upper dose for propofol in this situation. Nurses to follow titration directions. (2) Dying care: Status: Acute Assessment and plan: I added some comfort medications and discontinued oral meds and other orders which were no longer relevant. Of note, [facility] is experiencing a lorazepam shortage. When her lorazepam drip is finished, we will start midazolam to prevent acute benzodiazepine withdrawal, as she has been on high doses for several days now. (3) Acute pulmonary embolism: Status: Acute Assessment and plan: One of the acute events leading to her impending (4) Cholelithiasis with choledocholithiasis: Status: Acute Assessment and plan: Not a surgical candidate. Another event leading up to her . Subjective Subjective Patient reports: still having pain; denies tolerating liquids well, shortness of breath or fever Interval history since last seen: I was asked to see Blanka by my colleague, Carmen Victoria, DENISHA. Blanka is bed-bound, non-verbal, Blanka has been on comfort measure for 12 days, per her family and nursing staff. She is on the maximal dose of 40 mg/hr of hydromorphone iv. She is on lorazepam at 5 mg/hr continuous drip. She has not eaten or had anything by mouth for 12 days. She has a trinh in place and is still making small amounts of urine. SHe is not on oxygen. She continues to moan and grimace, despite these palliative measures. She looks restless. (She is also receiving haldol IV for this). Her son Oleg, who is her DPOA, has consulted with his 2 sisters who agree that their mother Blanka would not want to suffer as she is. Her symptoms are not controlled despite maximal medications. We reviewed the palliative sedation consent form. Blanka meets all the criteria for being eligible for this medication. Oleg signed the form after further discussion with me. (He'd reviewed the process with Carmen Victoria, DENISHA yesterday). I entered the protocol for propofol for Blanka. Midazolam would not work given her already current high dose of lorazepam. We did not discuss ketamine. IF the propofol is unable to keep Blanka comfortable after 48 hrs of trial, will consider ketamine. Exam Narrative Exam Narrative: Frail, ederly woman, lying in bed, moaning on and off, with occasional furrowed brow, on VIRTUAL ASSISTANT Clear lungs anteriorly, no observed apnea, no increased work of breathing S1-S2, no murmur, tachycardia HR in the 120's trin[address] with edwin colored urine skin is mims in color she doesn't respond to voice or light touch no cyanosis or mottling noted skin is normal temperature Objective Last Vital Signs Temp 98.6 F 01/12/24 09:13 Pulse 93 H 01/13/24 15:27 Resp 12 01/13/24 15:27 BP 124/74 01/06/24 14:17 Pulse Ox 94 01/13/24 15:27
--- NOTE | 2024-01-18 12:33 | PGE_ITS ---
Date of Service Date of service: 01/18/24 Time of Service: 12:33 Assessment and Plan Assessment and plan (1) Comfort measures only status: Status: Acute Assessment and plan: -Continue MILITARY SCIENCE TEACHER interventions dilaudid drip at 40 mg/hr, lorazepam at 5 mg/hr Scheduled Haldol for agitation Palliative sedation with propofol orders in by Dr. Garrett -Protocol faxed to pharmacy discussed with DR Sidhu (2) Abdominal pain, acute, right upper quadrant: Status: Acute (3) Elevated troponin level not due myocardial infarction: Status: Acute (4) Urinary tract infection: Status: Acute Qualifiers: Urinary tract infection type: acute cystitis Hematuria presence: with hematuria Qualified Code(s): N30.01 - Acute cystitis with hematuria (5) Hypokalemia: Status: Acute (6) Dehydration: Status: Acute (7) Chronic renal insufficiency: Qualifiers: Chronic kidney disease stage: stage 3 (moderate) Chronic kidney disease stage 3 subtype: stage 3b (GFR 30-44) Qualified Code(s): N18.32 - Chronic kidney disease, stage 3b (8) Diabetes mellitus: Qualifiers: Diabetes mellitus type: type 2 Diabetes mellitus mcc insulin use: without mcc use Diabetes mellitus complication status: with kidney complications Diabetes mellitus complication detail: with chronic kidney disease Chronic kidney disease stage: stage 3 (moderate) Chronic kidney disease stage 3 subtype: stage 3b (GFR 30-44) Qualified Code(s): E11.22 - Type 2 diabetes mellitus with diabetic chronic kidney disease; N18.32 - Chronic kidney disease, stage 3b (9) PAF (paroxysmal atrial fibrillation): Status: Acute (10) Hypertension: Qualifiers: Hypertension type: primary hypertension Qualified Code(s): I10 - Essent ial (primary) hypertension (11) Candidiasis of perineum: Status: Acute Subjective Subjective Interval history since last seen: Patient is on MILITARY SCIENCE TEACHER , still moaning at times, but not further frowing as compared to the previous day.Lorazepam drip is maxed out and Hydromorphone increased to 40 mg/hr Family at bedside and discussing initiation of palliative sedation with propofol as planned yesterday during palliative care meeting. Exam Narrative Exam Narrative: Frail, ederly female patient on MILITARY SCIENCE TEACHER, moaning at times Clear lungs anteriorly S1-S2, no murmur. Objective Last Vital Signs Temp 37 C 01/12/24 09:13 Pulse 93 H 01/13/24 15:27 Resp 12 01/13/24 15:27 BP 124/74 01/06/24 14:17 Pulse Ox 94 01/13/24 15:27 Time Spent with Patient Time Spent with Patient: >50 minutes Time was spent: preparing to see the patient(eg.review tests), obtaining and/or reviewing separately otained hiistory, ordering medications,tests, procedures, referring, communicating with other health hourly caregiver, indepentently interpreting results, counseling the patient and care coordination
[2024-01-18] MEDS: PROPOFOL 1,000 MG/100 ML BTL 1 MG IVPB (14:10)
[2024-01-19] MEDS: PROPOFOL 1,000 MG/100 ML BTL 15 MG IVPB (01:54)
[2024-01-19] MEDS: diazePAM 10 MG/2 ML SYR 5 MG IV ×8 (02:22→09:33)
[2024-01-19] MEDS: PROPOFOL 1,000 MG/100 ML BTL 22 MG IVPB ×2 (06:54→11:34)
[2024-01-19] MEDS: Normal Saline Flush 10 ML SYR IVP (07:37)
--- NOTE | 2024-01-19 09:46 | W.PALPGNOTE ---
Date of service: 01/19/24 Time of Service: 09:15 Assessment and Plan Assessment and plan (1) Dying care: Status: Acute Assessment and plan: She is on three drips now: hydromorphone at max of 40 mg/hr; propofol at relatively low dose of 220 mg/hr (22 ml); and soon will be on midazolam drip too. She looks more comfortable than she did yesterday, but is still not fully relaxed per her furrowed brow. Encouraged nurse to treat to comfort. If she needs further medication tomorrow will add ketamine. HOWEVER, her propofol dose is still relatively low and can be more aggressively increased per protocol. (2) Comfort measures only status: Status: Acute Assessment and plan: Continue with this plan. Subjective Subjective Patient reports: still having pain Interval history since last seen: I am seeing Blanka for the second day of her palliative sedation protocol. She was started on propofol yesterday afternoon. She is up to 22 mls/hr, equivalent to 220 mg/hr. She has a creased forehead, but her nurse says this is not new. I did not note it yesterday She was on 5 mg/ hr of lorazepam but we have since run out of this medication. At 2 am, the med surg charge nurse called me to let me know that her drip was out. We changed her over to diazepam until this am when I started her on a midazolam drip at the equivalent dose of lorazepam at 10 mg /hr. Her family was not at bedside today. They are exhausted. She has not had anything by mouth since for almost 2 weeks. Her nurse Jake has been in touch with daughter Gema. Exam Narrative Exam Narrative: Frail, ederly woman, lying in bed on her back, eyes closed, with slightly furrowed brow, on REGULATORY AFFAIRS INTERN Clear lungs anteriorly, no observed apnea, no increased work of breathing CV S1-S2, no murmur,normal heart rate in the 70s-80s trinh in place with edwin colored urine skin is pale, she has some bruising of her lower extremities she doesn't respond to voice or light touch no cyanosis or mottling noted skin is normal temperature Objective Last Vital Signs Temp 98.6 F 01/12/24 09:13 Pulse 93 H 01/13/24 15:27 Resp 12 03/25/24 15:27 BP 124/74 01/06/24 14:17 Pulse Ox 94 01/13/24 15:27
--- NOTE | 2024-01-19 09:49 | PGE_ITS ---
Date of Service Date of service: 01/19/24 Time of Service: 09:49 Assessment and Plan Assessment and plan (1) Comfort measures only status: Status: Acute Assessment and plan: -Continue RESTROOMS OR LOUNGES MAID interventions Dilaudid drip at 40 mg/hr Midazolam drip as per order from Dr. Garrett Palliative sedation with propofol orders as per Dr. Garrett Ddiscussed with Dr. Sidhu (2) Abdominal pain, acute, right upper quadrant: Status: Acute (3) Elevated troponin level not due myocardial infarction: Status: Acute (4) Urinary tract infection: Status: Acute Qualifiers: Hematuria presence: with hematuria Urinary tract infection type: acute cystitis Qualified Code(s): N30.01 - Acute cystitis with hematuria (5) Hypokalemia: Status: Acute (6) Dehydration: Status: Acute (7) Chronic renal insufficiency: Qualifiers: Chronic kidney disease stage: stage 3 (moderate) Chronic kidney disease stage 3 subtype: stage 3b (GFR 30-44) Qualified Code(s): N18.32 - Chronic kidney disease, stage 3b (8) Diabetes mellitus: Qualifiers: Chronic kidney disease stage: stage 3 (moderate) Chronic kidney disease stage 3 subtype: stage 3b (GFR 30-44) Diabetes mellitus complication detail: with chronic kidney disease Diabetes mellitus complication status: with kidney complications Diabetes mellitus continuous churn buttermaker insulin use: without jail use Diabetes mellitus type: type 2 Qualified Code(s): E11.22 - Type 2 diabetes mellitus with diabetic chronic kidney disease; N18.32 - Chronic kidney disease, stage 3b (9) PAF (paroxysmal atrial fibrillation): Status: Acute (10) Hypertension: Qualifiers: Hypertension type: primary hypertension Qualified Code(s): I10 - Essential (primary) hypertension (11) Candidiasis of perineum: Status: Acute Subjective Subjective Interval history since last seen: Patient is on RESTROOMS OR LOUNGES MAID , no S&S of discomfort. Hydromorphone at 40 mg/hr, midazolam at 20 mg/hr and propofol at 56 mcg/kg/min when seen Family not at bedside at the time Exam Narrative Exam Narrative: Frail, elderly female patient on RESTROOMS OR LOUNGES MAID Facial expression is relaxed Clear lungs anteriorly S1-S2, no murmur, no mottling but skin is dusky. Objective Last Vital Signs Temp 37 C 01/12/24 09:13 Pulse 93 H 01/13/24 15:27 Resp 12 01/13/24 15:27 BP 124/74 01/06/24 14:17 Pulse Ox 94 01/13/24 15:27 Time Spent with Patient Time Spent with Patient: 35-49 minutes Time was spent: preparing to see the patient(eg.review tests), obtaining and/or reviewing separately otained hiistory, ordering medications,tests, procedures, referring, communicating with other health managed care liaison, indepentently interpreting results, counseling the patient and care coordination
[2024-01-19] MEDS: MIDAZOLAM 50 MG in Normal Saline 90 ML 20 MG IV ×3 (10:31→21:25)
--- NOTE | 2024-01-19 11:45 | PHA.ACLINAW ---
Renal Dosing Renal Dosing: BUN 21 mg/dL (7-18) H 01/06/24 05:30 Creatinine 1.5 mg/dL (0.55-1.02) H 01/06/24 05:30 Anticoagulation Anticoagulation: Hgb 8.2 g/dL (11.2-15.7) L 01/06/24 05:30 Hct 26.2 % (36.0-46.0) L 01/06/24 05:30 Plt Count 80 10^3/uL (130-400) L 01/06/24 05:30 INR 1.3 (0.9-1.1) H 01/03/24 07:30 Creatinine 1.5 mg/dL (0.55-1.02) H 01/06/24 05:30 Relevant Labs Relevant Labs: Sodium 139 mmol/L (136-145) 01/06/24 05:30 Potassium 3.3 mmol/L (3.5-5.1) L 01/06/24 05:30 Chloride 107 mmol/L (98-107) 01/06/24 05:30 Magnesium 1.4 mg/dL (1.8-2.4) L 01/06/24 11:15 C-Reactive Protein Cancelled 01/06/24 12:31 DM Control DM Control: Glucose 99 mg/dL (74-106) 01/06/24 05:30 Hemoglobin A1c 6.2 % (<5.7) H 01/05/24 06:18 Cardiac Review Cardiac Review: Troponin I 104 ng/L (< or =60) H* 01/04/24 10:10 SOAP Subjective: Patient has a PICC line, has been npo ~ 2 weeks Objective: Respiratory rate < 19 Assessment: Patient here for comfort measures only, end of life care. Hydromorphone infusion at max rate of 40mg/hr (20ml/hr), Lorazepam infusion started 01/14 at a low dose with titration up to 5mg/hr, but the pharmacy supply was exhausted, medication on exterminator helper termite backorder. Began IVP Diazepam Q1h, which is also limited in supply on a back order status. Propofol infusion began 01/17 using the Palliative sedation protocol, currently being titrated up as needed with no limitations. On 01/17 Diazepam changed to Midazolam starting at 10mg/hr (20ml/hr) with titration parameters, also following the Palliative sedation protocol. Plan: continue close monitoring and volumes of IV medications to ensure enough supplies for overnight care, taking into consideration possible increased titrations
[2024-01-19] MEDS: PROPOFOL 1,000 MG/100 ML BTL 25 MG IVPB ×2 (16:33→21:24)
[2024-01-19] MEDS: Scopolamine 1 MG/3 DAYS PATCH TD (21:23)
[2024-01-20] MEDS: PROPOFOL 1,000 MG/100 ML BTL 27 MG IVPB (00:57)
[2024-01-20] MEDS: MIDAZOLAM 50 MG in Normal Saline 90 ML 20 MG IV ×3 (02:15→12:44)
[2024-01-20] MEDS: PROPOFOL 1,000 MG/100 ML BTL 30 MG IVPB (04:20)
[2024-01-20 05:54] VITALS: RESP 6
[2024-01-20] MEDS: PROPOFOL 1,000 MG/100 ML BTL 32 MG IVPB (07:23)
--- NOTE | 2024-01-20 08:27 | PDOC.CMPRO ---
Date of service: 01/20/24 Time of Service: 08:28 Care Management Progress Note Progress Note Text Progress Note Text: S/O:Blanka was lying in bed when CM met with her. She remains unresponsive and is receiving palliative sedation with propofol. She is also getting IV Dilaudid and Midazolam to keep her comfortable. Blanka's family spent most of the weekend with her although they have not been visiting today. Blanka appears comfortable and at peace. A: Blanka is a 78 year old woman admitted on 01/02 with Abdominal pain, elevated troponins P:Blanka has transitioned to comfort measures. She will likely remain at [facility] for end of life care. She has pre-paid arrangements with [facility] in [place]. CM will follow and continue to support Blanka and her family. SDOH(Care Management) Screening Will the Patient Participate in the Screening?: Yes Do you worry about having a steady place to live?: yes In the past 12 months, have you had to go without electric, gas, oil or water in your home?: choose not to answer Have you or anyone in your house had to go without enough food to eat?: choose not to answer Has lack of transportation kept you from medical appointments or from doing things needed for daily living?: choose not to answer Has anyone in your support network made you feel unsafe for any reason?: choose not to answer Health Related Social Needs Health related social needs: housing instability, housed, with risk of homelessness([id number])
[2024-01-20] MEDS: PROPOFOL 1,000 MG/100 ML BTL 37 MG IVPB (10:20)
[2024-01-20] MEDS: PROPOFOL 1,000 MG/100 ML BTL 40 MG IVPB ×2 (13:09→15:54)
--- NOTE | 2024-01-20 16:16 | PGE_ITS ---
Date of Service Date of service: 01/20/24 Time of Service: 16:16 Assessment and Plan Assessment and plan (1) Comfort measures only status: Status: Acute Assessment and plan: -Continue TECHNOLOGY SALES SPECIALIST interventions Dilaudid drip at 40 mg/hr Midazolam drip as per order from Dr. Garrett Palliative sedation with propofol orders as per Dr. Garrett Discussed with Dr. Mariscal (2) Abdominal pain, acute, right upper quadrant: Status: Acute (3) Elevated troponin level not due myocardial infarction: Status: Acute (4) Urinary tract infection: Status: Acute Qualifiers: Hematuria presence: with hematuria Urinary tract infection type: acute cystitis Qualified Code(s): N30.01 - Acute cystitis with hematuria (5) Hypokalemia: Status: Acute (6) Dehydration: Status: Acute (7) Chronic renal insufficiency: Qualifiers: Chronic kidney disease stage: stage 3 (moderate) Chronic kidney disease stage 3 subtype: stage 3b (GFR 30-44) Qualified Code(s): N18.32 - Chronic kidney disease, stage 3b (8) Diabetes mellitus: Qualifiers: Chronic kidney disease stage: stage 3 (moderate) Chronic kidney disease stage 3 subtype: stage 3b (GFR 30-44) Diabetes mellitus complication detail: with chronic kidney disease Diabetes mellitus complication status: with kidney complications Diabetes mellitus residential insulin use: without residential use Diabetes mellitus type: type 2 Qualified Code(s): E11.22 - Type 2 diabetes mellitus with diabetic chronic kidney disease; N18.32 - Chronic kidney disease, stage 3b (9) PAF (paroxysmal atrial fibrillation): Status: Acute (10) Hypertension: Qualifiers: Hypertension type: primary hypertension Qualified Code(s): I10 - Essential (primary) hypertension (11) Candidiasis of perineum: Status: Acute Subjective Subjective Interval history since last seen: remains unresponsive Exam Narrative Exam Narrative: elderly female, resting quietly in bed, respirations even and unlabored, skin pale warm and dry. Objective Last Vital Signs Temp 37 C 01/12/24 09:13 Pulse 93 H 01/13/24 15:27 Resp 6 L 01/20/24 05:54 BP 124/74 01/06/24 14:17 Pulse Ox 94 01/13/24 15:27 Time Spent with Patient Time Spent with Patient: <25 minutes Time was spent: preparing to see the patient(eg.review tests)
--- NOTE | 2024-01-20 16:18 | W.PALPGNOTE ---
Date of service: 01/20/24 Time of Service: 12:00 Assessment and Plan Assessment and plan (1) Comfort measures only status: Status: Acute (2) Dying care: Status: Acute Assessment and plan: I am glad she looks comfortable now compared to when she was last seen my Dr Garrett and her family. Nursing has been instructed to increase medications to appropriately to handle pain, agitation and anxiety. I did discuss management of of all 3 drips she is on with anesthesia. Her propofol is at 400mg/hr. It is appropriate to continue to increase incremental as needed up to 800mg/hr. Nursing should increase if she has increased agitation She does not appear to be in pain presently. Her dilaudid is at 40mg/hour. This too should be incrementally increased if pain or moaning is noted. There is no upper limit of dilaudid if Blanka is in pain and moaning. Midazolam is at 10mg/hr and should be inreaced up to 12-16mg hour incrementally to help with anxiety If appropriate titration of meds is done, and the patient remains symptomatic at the upper end of these meds, alternative meds such as ketamine should be done I have discussed the pt with Dr Mariscal. Subjective Subjective Interval history since last seen: Blanka is presently on palliative sedation due to continued pain and discomfort. Family has told nursing they want her comfortable. She is presently on propofol, midazalam and dilaudid. Dr Garrett is concerned that her present meds are not being appropriately increased to control her discomfort. Exam Narrative Exam Narrative: I walked in the room and spoke Blanka's name. She did not respond. Her breathing is regular, about 14 times per minute. Pulse is in the 70-80s. She did not look uncomfortable. Nursing had just increased her medication. Her mouth looks dry Objective Last Vital Signs Temp 98.6 F 01/12/24 09:13 Pulse 93 H 01/13/24 15:27 Resp 6 L 01/20/24 05:54 BP 124/74 01/06/24 14:17 Pulse Ox 94 01/13/24 15:27
--- NOTE | 2024-01-21 14:55 | EXPE_ITS ---
Date of service: 01/20/24 Time of Service: 18:00 Discharge Plan Disposition Patient Disposition: Discharge Details Reason For Visit: RUQ abdominal pain, UTI, Elevated troponin, CKD Admit Date/Time: 01/03/24 05:55 Admit Provider: Reji Kaur Attending Provider: Reji Kaur Primary Care Provider: Lazara Benz Hospital Course Hospital Course: This is a 78-year-old female patient with a history of atrial fibrillation div erticulosis diabetes mellitus type 2 traumatic brain injury kidney disease CVA dementia who was residing at [facility]hab sent to the emergency department here for complaints of abdominal pain. Initially thought possibly due to her gallbladder. She was admitted to the medical surgical unit and hospital day 2 developed bloody diarrhea after further evaluation and workup it was thought symptoms were secondary to ischemic bowel. After palliative care consult and discussion with family decision was to make her comfort care as she continued to deteriorate. She remained at [facility] for end-of-life care. Her course was prolonged and she required multiple medication adjustments and additions to control her symptoms. She finally succumbed to her illness on January 19 after a lengthy hospitalization. Postmortem care per hospital policy body released to home arranged by family. Discharge Data Discharge Date/Time-TO BE ENTERED AT DEPARTURE: 01/20/24 18:05 Discharge Sum: Prov Provider Consults: 01/03/24 16:28 Palliative Care Consult [CONS] Routine Consultation Status:: Contact made by Clarification:: Manage/follow per spec. Reason for consult:: goals of care 01/06/24 16:01 Food Mixer Repairer Consult [CONS] Routine Consultation Status:: Follow-up needed Clarification:: Manage/follow per spec. Reason for consult:: Patient going on comfort care 01/17/24 13:37 PICC [PICC/Midline Consult] [CONS] Routine Comment: Consultation Status:: Follow-up needed Clarification:: One time opinion Reason for consult:: Mid-line for AUTO FLEET MANAGER Type of Line to be Placed: Midline Discharge Sum: Diag Contributing Factors (1) Comfort measures only status: (2) Abdominal pain, acute, right upper quadrant: (3) Elevated troponin level not due myocardial infarction: (4) Urinary tract infection: (5) Hypokalemia: (6) Dehydration: (7) Chronic renal insufficiency: (8) Diabetes mellitus: (9) PAF (paroxysmal atrial fibrillation): (10) Hypertension: (11) Candidiasis of perineum:
== END 2024-01-20 18:05 | disposition expired | DRG 444 ==
LOC: ER 06:06 → MS 06:35
PROVIDERS: Family Medicine; Internal Medicine; Nurse Practitioner Acute Care; Surgery; Admitting Provider Family Medicine; Emergency Provider Emergency Medicine Emergency Medical Services; PCP Family Medicine; Visit Provider Family Medicine
DX: K80.70 Calculus of gallbladder and bile duct without cholecystitis without obstruction (principal); I26.99 Other pulmonary embolism without acute cor pulmonale; N30.01 Acute cystitis with hematuria; I24.89 Other forms of acute ischemic heart disease; I77.1 Stricture of artery; Z51.5 Encounter for palliative care; I12.9 Hypertensive chronic kidney disease with stage 1 through stage 4 chronic kidney disease, or unspecified chronic kidney disease; N18.32 Chronic kidney disease, stage 3b; E11.22 Type 2 diabetes mellitus with diabetic chronic kidney disease; J45.40 Moderate persistent asthma, uncomplicated; K27.9 Peptic ulcer, site unspecified, unspecified as acute or chronic, without hemorrhage or perforation; Z68.32 Body mass index [BMI] 32.0-32.9, adult; D64.9 Anemia, unspecified; E66.9 Obesity, unspecified; E78.5 Hyperlipidemia, unspecified; I48.0 Paroxysmal atrial fibrillation; K21.9 Gastro-esophageal reflux disease without esophagitis; E87.6 Hypokalemia; R13.10 Dysphagia, unspecified; E86.0 Dehydration; G89.29 Other chronic pain; M54.9 Dorsalgia, unspecified; K57.30 Diverticulosis of large intestine without perforation or abscess without bleeding; G47.33 Obstructive sleep apnea (adult) (pediatric); Z66 Do not resuscitate; R74.8 Abnormal levels of other serum enzymes; R53.1 Weakness; I70.0 Atherosclerosis of aorta; I65.22 Occlusion and stenosis of left carotid artery; B37.2 Candidiasis of skin and nail; R41.3 Other amnesia; Z87.820 Personal history of traumatic brain injury; Z86.12 Personal history of poliomyelitis; F29 Unspecified psychosis not due to a substance or known physiological condition; F03.C0 Unspecified dementia, severe, without behavioral disturbance, psychotic disturbance, mood disturbance, and anxiety
CPT/HCPCS: 36410; 00123; 36415; 36573; 80053; 82805; 83690; 84145; 85027; 86850; 86900; 86901; 86920; 87635; 87641; 93005; 93306; 94640; 96365; 99223; 99231; 99285; 71045; 73030; 74018; 74174; 74176; 76705; 81003; 81015; 82150; 82607; 82728; 82746; 83036; 83540; 83550; 83605; 83735; 84443; 84466; 84484; 85014; 85018; 85025; 85610; 85730; 86140; 87086; 93010; 94664; 99232; 99233; 99291; J0131; J0696; J1170; J1171; J1450; J1630; J1644; J1815; J1836; J2060; J2250; J2270; J2470; J2704; J3010; J3360; J3470; J3475; J3480; J3490